=== PATIENT | female | born 1950 | race Caucasian/White ===

== ENCOUNTER → 2018-01-10 07:15 | Outpatient (CLI) | payer MEDICARE, SELFPAY ==
[2018-01-10 07:18] LABS: Microscopic, Urine URINE MICROSCOPIC (MICROSCOPIC)
[2018-01-10 07:36] LABS: Basophils % 0.6 % (0.1-2.0); Eosinophils # 0.1 K/mm3 (0.0-0.4); Hematocrit 31.6 % (37.0-47.0); Hemoglobin 10.9 g/dL (12.2-16.2); Lymphocytes % 40.8 K/mm3 (10-50); Mean Corpuscular HGB Conc 34.6 g/dL (31.8-35.4); Mean Corpuscular Hemoglobin 26.9 pg (27.0-31.2); Mean Corpuscular Volume 77.7 fl (81-99); Mean Platelet Volume 8.3 fl (7.4-10.4); Monocytes # 0.3 K/mm3 (0.1-1.0); Monocytes % 7.1 % (1.7-9.3); Neutrophils # 2.4 K/mm3 (1.8-7.8); Neutrophils % 49.5 % (37.0-80.0); Platelet Count 258 K/mm3 (142-424); Red Blood Count 4.07 M/mm3 (4.20-5.40); Red Cell Distribution Width 15.8 % (11.5-17.5); White Blood Count 4.8 K/mm3 (4.8-10.8)
[2018-01-10 07:52] LABS: Appearance,Urine CLEAR (Clear); Bilirubin,Urine Negative (Negative); Blood, Urine Negative (Negative); Color,Urine YELLOW (Yellow); Glucose,Urine (UA) Negative (Negative); Ketones,Urine Negative (Negative); Leukocyte Esterase,Urine TRACE (Negative); Nitrate,Urine Negative (Negative); PH,Urine 6.5 (5.0-8.5); Protein,Urine Negative (Negative); Specific Gravity, Urine <= 1.005 (1.005-1.030); Urobilinogen,Urine 0.2 EU/dl (0.2)
[2018-01-10 08:01] LABS: Creatinine,Urine Random 52 mg/dL (20-320)
[2018-01-10 08:26] LABS: Total Protein,Urine Random < 6.0 mg/dL (0.0-11.9)
[2018-01-10 09:02] LABS: Bacteria,Urine Trace /lpf
[2018-01-10 09:36] LABS: Albumin Level 3.7 gm/dL (3.4-5.0); Anion Gap 12.5 mEq/L (5-15); Blood Urea Nitrogen 15 mg/dL (7-18); Calcium 9.2 mg/dL (8.5-10.1); Carbon Dioxide 28 mmol/L (21.0-32.0); Chloride 106 mmol/L (98-107); Creatinine,Serum 1.01 mg/dL (0.55-1.02); Estimated Glomerular Filt Rate 54 ml/min (>60); GFR (African American) 66 ML/MIN (>60); Glucose 100 mg/dL (74-106); Phosphorous 4.4 mg/dL (2.4-4.9); Potassium 4.5 mmoL/L (3.5-5.1); Sodium 142 mmol/L (136-145)
[2018-01-11 18:33] LABS: Vitamin D 25 Hydroxy 29.3 ng/mL (30.0-100.0)
== END ==
PROVIDERS: Visit Provider Internal Medicine Nephrology
DX: N18.3 Chronic kidney disease, stage 3 (moderate) (principal)
CPT/HCPCS: 36415; 80069; 81001; 82570; 82652; 84155; 85025

== ENCOUNTER → 2018-01-16 15:19 | Outpatient (POV) | payer MEDICARE, SELFPAY | PROVIDERS: PCP Emergency Medicine; Visit Provider Internal Medicine Nephrology | DX: Z00.00 Encounter for general adult medical examination without abnormal findings (principal) ==

== ENCOUNTER → 2018-03-31 10:13 | Outpatient (CLI) | payer MEDICARE, OTHER, SELFPAY ==
[2018-03-31 10:56] LABS: Basophils % 0.4 % (0.1-2.0); Eosinophils # 0.1 K/mm3 (0.0-0.4); Eosinophils % 2.4 % (0.1-12.0); Hematocrit 35.6 % (37.0-47.0); Hemoglobin 11.6 g/dL (12.2-16.2); Lymphocytes # 1.7 K/mm3 (0.7-4.5); Lymphocytes % 30.4 K/mm3 (10-50); Mean Corpuscular HGB Conc 32.8 g/dL (31.8-35.4); Mean Corpuscular Hemoglobin 25.9 pg (27.0-31.2); Mean Corpuscular Volume 79.1 fl (81-99); Mean Platelet Volume 7.8 fl (7.4-10.4); Monocytes # 0.3 K/mm3 (0.1-1.0); Monocytes % 5.9 % (1.7-9.3); Neutrophils # 3.3 K/mm3 (1.8-7.8); Neutrophils % 60.9 % (37.0-80.0); Platelet Count 255 K/mm3 (142-424); Red Blood Count 4.49 M/mm3 (4.20-5.40); Red Cell Distribution Width 16.8 % (11.5-17.5); White Blood Count 5.5 K/mm3 (4.8-10.8)
[2018-03-31 12:06] LABS: Alanine Aminotransferase 23 U/L (12-78); Albumin Level 3.7 gm/dL (3.4-5.0); Albumin/Globulin Ratio 1.1 (1.1-1.8); Alkaline Phosphatase 90 U/L (46-116); Anion Gap 12.4 mEq/L (5-15); Aspartate Amino Transferase 14 U/L (15-37); Bilirubin,Total 0.3 mg/dL (0.2-1.0); Blood Urea Nitrogen 16 mg/dL (7-18); Calcium 9.3 mg/dL (8.5-10.1); Carbon Dioxide 29 mmol/L (21.0-32.0); Chloride 106 mmol/L (98-107); Chol/HDL Ratio 5.6 (1-3.5); Cholesterol 253 mg/dL (140-200); Estimated Glomerular Filt Rate 55 ml/min (>60); GFR (African American) 67 ML/MIN (>60); Globulin 3.3 gm/dl (1.3-3.2); Glucose 98 mg/dL (74-106); HDL Cholesterol 45 mg/dL (29-89); Potassium 4.4 mmoL/L (3.5-5.1); Sodium 143 mmol/L (136-145); T4 (Thyroxine) 7.2 ug/dl (4.7-13.3); Thyroid Stimulating Hormone 2.42 uIU/ml (0.358-3.740)
[2018-03-31 12:07] LABS: Triglycerides 427 mg/dL (30-200)
[2018-04-01 08:50] LABS: Vitamin B12 371 pg/mL (232-1245)
[2018-04-03 14:22] LABS: 1,25-Dihydroxy, Vitamin D-2 <10 pg/mL (.)
[2018-04-04 08:24] LABS: 1,25 Dihydroxy Vitamin D 31 pg/mL (.); 1,25-Dihydroxy, Vitamin D-3 31 pg/mL (.)
== END ==
PROVIDERS: Visit Provider Nurse Practitioner Family
DX: R53.83 Other fatigue (principal); J44.9 Chronic obstructive pulmonary disease, unspecified; F41.9 Anxiety disorder, unspecified; E78.5 Hyperlipidemia, unspecified
CPT/HCPCS: 36415; 80053; 80061; 82607; 82652; 84436; 84443; 85025

== ENCOUNTER → 2018-04-25 08:05 | Outpatient (CLI) | payer MEDICARE, OTHER, SELFPAY ==
[2018-04-25 10:49] LABS: Hemoglobin A1C 5.5 % (0.0-7.0)
== END ==
PROVIDERS: PCP Emergency Medicine; Visit Provider Nurse Practitioner Family
DX: E78.2 Mixed hyperlipidemia (principal); Z79.899 Other long term (current) drug therapy
CPT/HCPCS: 36415; 83036

== ENCOUNTER → 2018-10-14 11:11 | Outpatient (CLI) | payer MEDICARE, OTHER, SELFPAY ==
[2018-10-14 11:18] LABS: Microscopic, Urine URINE MICROSCOPIC (MICROSCOPIC)
[2018-10-14 12:01] LABS: Appearance,Urine CLEAR (Clear); Bilirubin,Urine Negative (Negative); Blood, Urine Negative (Negative); Color,Urine YELLOW (Yellow); Glucose,Urine (UA) Negative (Negative); Ketones,Urine Negative (Negative); Leukocyte Esterase,Urine Negative (Negative); Nitrate,Urine Negative (Negative); PH,Urine 5.5 (5.0-8.5); Protein,Urine Negative (Negative); Urobilinogen,Urine 0.2 EU/dl (0.2)
[2018-10-14 12:08] LABS: Bacteria,Urine Trace /lpf; Squamous Epithelial Cell,Urine Occasional #/hpf (0-5)
[2018-10-14 12:34] LABS: Basophils % 0.4 % (0.1-2.0); Eosinophils # 0.1 K/mm3 (0.0-0.4); Eosinophils % 1.7 % (0.1-12.0); Hematocrit 34.7 % (37.0-47.0); Hemoglobin 11.5 g/dL (12.2-16.2); Lymphocytes % 34.2 % (10-50); Mean Corpuscular HGB Conc 33.2 g/dL (31.8-35.4); Mean Corpuscular Hemoglobin 26.7 pg (27.0-31.2); Mean Corpuscular Volume 80.6 fl (81-99); Mean Platelet Volume 8.1 fl (7.4-10.4); Monocytes # 0.3 K/mm3 (0.1-1.0); Monocytes % 5.3 % (1.7-9.3); Neutrophils # 3.4 K/mm3 (1.8-7.8); Neutrophils % 58.5 % (37.0-80.0); Platelet Count 233 K/mm3 (142-424); Red Blood Count 4.31 M/mm3 (4.20-5.40); Red Cell Distribution Width 15.3 % (11.5-17.5); White Blood Count 5.9 K/mm3 (4.8-10.8)
[2018-10-14 12:43] LABS: Creatinine,Urine Random 22 mg/dL (20-320)
[2018-10-14 13:39] LABS: Albumin Level 3.5 gm/dL (3.4-5.0); Anion Gap 15.3 mEq/L (5-15); Blood Urea Nitrogen 22 mg/dL (7-18); Calcium 8.5 mg/dL (8.5-10.1); Carbon Dioxide 24 mmol/L (21.0-32.0); Chloride 105 mmol/L (98-107); Creatinine,Serum 0.95 mg/dL (0.55-1.02); Estimated Glomerular Filt Rate 58 ml/min (>60); GFR (African American) 71 ML/MIN (>60); Sodium 140 mmol/L (136-145)
[2018-10-14 13:45] LABS: Potassium 4.3 mmoL/L (3.5-5.1)
[2018-10-14 13:55] LABS: Glucose 102 mg/dL (74-106)
[2018-10-15 14:40] LABS: Parathyroid Hormone Intact 68 pg/mL (15-65); Vitamin D 25 Hydroxy 13.6 ng/mL (30.0-100.0)
[2018-10-22 15:07] LABS: Calcium, Ionized 5.1 mg/dL (4.5-5.6)
== END ==
PROVIDERS: Visit Provider Internal Medicine Nephrology
DX: N18.3 Chronic kidney disease, stage 3 (moderate) (principal)
CPT/HCPCS: 36415; 80069; 81001; 82330; 82570; 82652; 83970; 84155; 85025

== ENCOUNTER → 2018-10-16 15:15 | Outpatient (POV) | payer MEDICARE, OTHER, SELFPAY | PROVIDERS: Visit Provider Internal Medicine Nephrology | DX: Z00.00 Encounter for general adult medical examination without abnormal findings (principal) ==

== ENCOUNTER → 2018-11-26 19:17 | Outpatient (CLI) | payer MEDICARE, OTHER, SELFPAY ==
[2018-11-26 20:06] LABS: Erythrocyte Sedimentation Rate 14 mm/hr (0-30)
[2018-11-28 16:11] LABS: Albumin 3.5 g/dL (2.9-4.4); Alpha-1-Globulin 0.2 g/dL (0.0-0.4); Alpha-2-Globulin 0.8 g/dL (0.4-1.0); Gamma Globulin 1.1 g/dL (0.4-1.8); Protein, Total 6.7 g/dL (6.0-8.5)
== END ==
PROVIDERS: Visit Provider Emergency Medicine
DX: R20.0 Anesthesia of skin (principal)
CPT/HCPCS: 84155; 84165; 85651

== ENCOUNTER → 2018-12-19 15:49 | Outpatient (CLI) | payer MEDICARE, OTHER, SELFPAY ==
--- NOTE | 2018-12-19 15:53 | MM_ITS ---
MM Dig screening mamm BI w/CAD ORDERING PHYSICIAN : Alan Brand MD PATIENT AGE: 68 years GENDER: Female FCOMPARISON: Previous mammograms: Previous mammogram studies from November 2014, November 2013, October. INDICATION: Routine screening 65-year-old no hormones no new complaints. Family history sibling sister with breast cancer age 50 as well as aunt with breast cancer TECHNIQUE: Standard CC and MLO images were obtained. R2 CAD reviewed. . Additional right breast CC nipple profile view and right MLO view to include IMF FINDINGS: Areas of Moderate breast density scattered fibroglandular elements most evident towards superior breast bilaterally . mild stable asymmetry. RIGHT BREAST: There are some new calcifications in the right breast. These are by far most likely benign calcifications particularly in this age patient; but with noting positive family history suggest the patient return for magnification views to further evaluate area labeled A.. (Reasonable alternative would be 6 month follow-up for these most likely benign calcifications) Otherwise overall architecture appears stable to breast with no new suspicious nodule or mass densities. Areas of mild fibroglandular asymmetry again noted & unchanged LEFT BREAST: The asymmetric areas of density in the left breast are again noted and long-standing. The areas labeled X and Y today's cc view have been seen on studies dating back to 2010 with no significant, appreciable change. Similar stable appearance on MLO view as well. Prior 2017 ultrasound revealed no significant findings here on either. Most likely reflect asymmetric island of fibroglandular tissue. Follow-up left mammogram 1 year adequate IMPRESSION: Right breast. New most likely benign calcifications developing at central right breast. However magnification views may be of benefit to further characterize and could be cautious, particularly in view of positive family history.. Moderately dense breast with Stable minimal otherwise seen bilaterally nodularity . BI-RADS Category: 0 Need Additional Imaging Evaluation RECOMMENDED FOLLOW-UP: IMM - IMMEDIATE FOLLOW-UP RECOMMENDED (A letter has been sent to the patient regarding results of the study.)
== END ==
PROVIDERS: PCP Emergency Medicine; Visit Provider Emergency Medicine
DX: Z12.31 Encounter for screening mammogram for malignant neoplasm of breast (principal)
CPT/HCPCS: 77067

== ENCOUNTER → 2019-01-08 14:20 | Outpatient (CLI) | payer MEDICARE, OTHER, SELFPAY ==
--- NOTE | 2019-01-08 14:24 | MM_ITS ---
MM Dig mamm DX unilat RT CAD INDICATION: Follow-up abnormal screening study, microcalcifications ORDERING PHYSICIAN: Alan Brand MD PATIENT AGE: 68 years COMPARISON: 12/19/2018, 12/24/2016 TECHNIQUE: Mag views right breast FINDINGS: Average fibroglandular tissue. Calcifications noted in the lower outer aspect right breast middle one third are identified on the mag views and have a coarse appearance and are probably benign. Follow-up suggested due to their interval development. IMPRESSION: Probably benign calcifications lower outer right breast. Recommend 6 month follow-up with mag views BI-RADS Category: 3 Probably Benign Finding Short Term Follow-up RECOMMENDED FOLLOW-UP: 6M - 6 MONTH FOLLOW-UP (A letter has been sent to the patient regarding results of the study.)
== END ==
PROVIDERS: PCP Emergency Medicine; Visit Provider Emergency Medicine
DX: R92.8 Other abnormal and inconclusive findings on diagnostic imaging of breast (principal)
CPT/HCPCS: 77065

== ENCOUNTER → 2019-02-06 12:17 | Outpatient (POV) | payer MEDICARE, OTHER, SELFPAY | PROVIDERS: Visit Provider Specialist | DX: R20.0 Anesthesia of skin (principal) | CPT/HCPCS: 95886; 95909 ==

== ENCOUNTER → 2019-02-23 10:31 | Outpatient (CLI) | payer MEDICARE, OTHER, SELFPAY ==
--- NOTE | 2019-02-23 10:36 | XR_ITS ---
EXAM: XR cervical spine 4V HISTORY: ITS.REASON: Neck pain, numbness BUE ORDERING PHYSICIAN: RADHA Caballero PATIENT AGE: 68 years COMPARISON: None FINDINGS: There is degenerative disc disease at C5-C6. Anterior osteophytes are present at C3, C4, C5, and C6. C6-C7 is not well demonstrated but is faintly visualized on the swimmer's view showing mild degenerative disc disease. Facet arthritic changes are noted C3-C7. There is mild foraminal narrowing on the left C4-5 and C5-6 and on the right at C3-C4. Carotid artery calcifications are also noted. No fracture or dislocation. No lytic or blastic change. No cervical ribs. IMPRESSION: Cervical spondylosis with degenerative disc disease and facet arthritic change with foraminal narrowing as described above
--- NOTE | 2019-02-23 10:36 | XR_ITS ---
EXAM: XR lumbar spine min 4V HISTORY: ITS.REASON: Back pain, incontinence ORDERING PHYSICIAN: RADHA Caballero PATIENT AGE: 68 years COMPARISON: None FINDINGS: There are mild degenerative changes of the lumbar spine. Small osteophytes are present anteriorly. There is slight decrease in the disc space at L2-L3 L3-L4 and L5-S1. No fracture or dislocation. No lytic or blastic change. Generalized vascular calcification is present. IMPRESSION: Mild degenerative change, no acute finding
== END ==
PROVIDERS: PCP Emergency Medicine; Visit Provider Physician Assistant
DX: M54.2 Cervicalgia (principal); M54.9 Dorsalgia, unspecified; R42 Dizziness and giddiness; R29.6 Repeated falls; R20.0 Anesthesia of skin; R20.2 Paresthesia of skin
CPT/HCPCS: 72050; 72110

== ENCOUNTER → 2019-03-04 12:45 | Outpatient (CLI) | payer MEDICARE, OTHER, SELFPAY ==
--- NOTE | 2019-03-04 12:47 | MR_ITS ---
MR lumbar spine wo con HISTORY: ITS.REASON: Low back pain, incontinence ORDERING PHYSICIAN: RADHA Caballero PATIENT AGE: 68 years Comparison: 02/23/2019. TECHNIQUE: Standard multiplanar multiecho sequences are performed without contrast. 3-D MIP and myelographic images are also rendered and reviewed FINDINGS: There is borderline minimal anterior subluxation of L3 on L4 related to facet hypertrophy. Vertebral body heights are normal. Osseous marrow signal is normal with a benign cavernous hemangioma posteriorly at L1 level. There is generalized shortening of the pedicles indicating a component of mild to moderate congenital central canal stenosis. L1-2 level is otherwise unremarkable. L2-3 shows mild facet hypertrophy without mass effect. There is no bulge or herniation. L3-4 shows moderate generalized thecal sac attenuation from very mild disc bulge and mild ligamentum flavum and moderate facet hypertrophy. L4-5 shows moderate facet hypertrophy with moderate to severe = attenuation. L5-S1 shows severe facet hypertrophy and moderate generalized thecal sac attenuation. Because of facet hypertrophy there is mild foraminal encroachment bilaterally at L4-5. The remainder of the nerve roots in the foraminal areas are strand of by epidural fat. The conus and cauda equina structures are unremarkable except there is crowding of the nerve roots in the thecal sac especially at L3-4 and L4-5. IMPRESSION: Areas of central canal stenosis from congenital and acquired etiology as discussed above, mild to moderate at L2-3, moderate at L3-4 and moderate to severe at L4-5 primarily from facet arthrosis. L5-S1 facet arthrosis without significant mass effect. L4-5 mild bilateral foraminal stenosis.
--- NOTE | 2019-03-04 12:47 | MR_ITS ---
MR cervical spine wo con HISTORY: ITS.REASON: Neck pain, numbness BUE ORDERING PHYSICIAN: RADHA Caballero PATIENT AGE: 68 years Comparison: 03/04/2019. TECHNIQUE: Standard multiplanar multiecho sequences are performed without contrast. 3-D MIP and myelographic images are also rendered and reviewed FINDINGS: Vertebral body heights and signal from the osseous marrow elements are normal. There is moderate to severe loss of disc space height at C5-6 and mild loss of height at C6-7. There is several millimeter anterior subluxation of C3 on C4 and C4 on C5 related to hypertrophy. C1-2 and foramen magnum area are unremarkable. C2-3 shows mild bulge without mass effect. C3-4 shows diffuse bulge adjacent to the ventral cord and AP diameter of the central canal is 8.4 mm. C4-5 shows diffuse mild bulge and mild ventral cord deformity and the AP canal diameter is 7.7 mm. C5-6 shows diffuse bulge/posterior spur with mild ventral cord deformity and the AP canal diameter 6.3 mm. C6-7 shows diffuse bulge with mild ventral cord deformity and the AP canal diameter 7.4 mm. There are some areas of suspected osseous foraminal stenosis and this is probably mild on the right at C3-4 from facet hypertrophy, mild to moderate on the left at C3-4 from facet and uncovertebral joint hypertrophy, and bilaterally at C5-6 moderate on the right and mild on the left from uncovertebral joint hypertrophy. Spinal cord is of normal signal. Paraspinal areas are unremarkable. IMPRESSION: Very little change since prior study. There are multiple levels of disc bulges with mild acquired central canal stenosis at C3-C7 levels and this is somewhat greater although probably stable at C5-6. Areas of foraminal stenosis from facet arthrosis and spondylosis as discussed above probably stable and more moderate on the right at C5-6. C3 on C4 and C4 on C5 minimal anterolisthesis related to facet arthrosis.
== END ==
PROVIDERS: PCP Emergency Medicine; Visit Provider Physician Assistant
DX: R15.9 Full incontinence of feces; R32 Unspecified urinary incontinence; M54.2 Cervicalgia; R20.0 Anesthesia of skin; R20.2 Paresthesia of skin; M54.5 Low back pain
CPT/HCPCS: 72141; 72148; 76376

== ENCOUNTER → 2019-03-06 14:19 | Outpatient (CLI) | payer MEDICARE, OTHER, SELFPAY ==
--- NOTE | 2019-03-06 14:24 | CT_ITS ---
CT HEAD WITHOUT CONTRAST [Referring physician:RADHA Caballero History:ITS.REASON: Dizziness, falling, off balance Ordering physician:RADHA Caballero Patient age:68 years Comparison:06/06/2010. TECHNIQUE: Axial images obtained without contrast. Brain and bone windows reviewed. All CT scans at the facility use one or more dose reduction, viz: automated exposure control, ma/kV adjustment per patient size (including targeted exams where dose is matched to indication, i.e. head), or iterative reconstruction technique. There is no mass, acute hemorrhage or extra-axial fluid collection. Ventricles, sulci and cortical areas are normal. There are some stable bilateral periventricular frontal white matter hypodense areas. There is also a stable subcortical superior left frontal hypodense area. The visualized paranasal sinuses and mastoid air cells are clear. There is no acute osseous process. Impression:No change or acute process. White matter findings are stable suggesting chronic microvascular and age-related changes.
== END ==
PROVIDERS: PCP Emergency Medicine; Visit Provider Physician Assistant
DX: R29.6 Repeated falls (principal); R42 Dizziness and giddiness
CPT/HCPCS: 70450

== ENCOUNTER → 2019-03-24 09:49 | Outpatient (POV) | payer MEDICARE, OTHER, SELFPAY ==
[2019-03-24 09:58] VITALS: BP 167/90; PULSE 81; RESP 18; O2SAT 98; BMI 33.6
--- NOTE | 2019-03-24 10:43 | HMH.PMCON ---
Assessment and Plan (1) Radiculopathy Current visit: Yes Status: Chronic Qualifiers: Spinal region: cervical Qualified Code(s): M54.12 - Radiculopathy, cervical region Category: Medical Code(s): M54.10 - Radiculopathy, site unspecified (2) Degenerative disc disease, lumbar Current visit: No Status: Chronic Category: Medical Code(s): M51.36 - Other intervertebral disc degeneration, lumbar region (3) Degenerative disc disease, cervical Current visit: No Status: Chronic Category: Medical Code(s): M50.30 - Other cervical disc degeneration, unspecified cervical region - Assessment and plan all Dx Assessment and Plan for all problems:: We will schedule C5-C6 cervical epidural steroid injection for the patient to see if it is beneficial. I also gave the patient some information in regards to spinal stenosis in the mild procedure given some of her low back symptoms this may be something we can address at a later time. Patient's main concern today is her neck pain in her bilateral arm radiculopathy. I will follow-up with the patient after her injection reassess her symptoms at that time she is not on any anticoagulation therapy. Dr. Ruiz has reviewed this note and agrees with this plan of care. This note was dictated using voice recognition software and may contain errors or omissions HPI - Data of Consult Consult date: 03/24/19 Requesting Physician: Katelynn Tadeo APRN Primary Care Provider: Alan Brand MD - Consult Narrative Reason for consult: Neck pain and back pain History of present illness: Ms. Kwan is a 68 year old female who presents today for consultation in regards to her neck pain and back pain. Patient had a fall back in July since then she has had pain in her neck and her lower back. However what is worsening now is the numbness and tingling in her bilateral hands. Patient and I discussed which pain was worse at this time and she stated it was the neck pain she would like to work on this to see if she can get some improvement. She rates her pain today a 7 out of 10. Patient has been on some gabapentin however it is been ineffective for the last several months. Patient is interested in injective therapy she is continuing a home stretching program. She is not on any anticoagulation therapy. CC: Katelynn Tadeo APRN [facility] History I have reviewed the patient's past medical history: Yes Medical History: Reports:: Asthma, Chronic Obstructive Pulmonary Disease (COPD), Coronary Artery Disease, Hyperlipidemia, Hypertension *Have you ever received a pneumonia vaccine?: Yes *Have you received a flu vaccine this season?: Yes Laterality Cases: Bilateral: Carpal Tunnel Release Other Surgeries: Yes: Tubal Ligation, Other Amputation: No Fractures: No - *Social History Smoking Status: Never smoker Alcohol Intake: never Alcohol Intake Frequency:: other Substance Use Type: denies use *Occupational Status:: other Housing: house Household Members: other *Travel in the last 8 weeks: None Family Hx:: Non-contributory Review of Systems - Review of Systems ROS General: no recent weight change, no fever, no sleep disturbances Respiratory: no cough, no shortness of air, no recurring pulmonary infections Cardiovascular/Peripheral Vascular: No chest pain, No palpitations, no edema, no shortness of breath. Gastrointestinal: no incontinence, normal bowel movements reported Genitourinary: no incontinence Musculoskeletal: Back pain, neck pain, arm pain Psychiatric: normal mood/ affect Neurological: [denies weakness in extremities], [denies balance issues] Meds Home Medications Medication Instructions Recorded Confirmed Type albuterol sulfate 2.5 mg/3 mL 2.5 mg INHALATION QDAY ml 08/29/17 03/12/19 History (0.083 %) solution for nebulization aspirin 81 mg tablet,delayed 81 mg PO QDAY #90 tab 02/27/18 03/12/19 Rx release cholecalciferol (vitamin D3)
--- NOTE | 2019-03-24 10:46 | P.CONS_ITS ---
Assessment and Plan (1) Radiculopathy Current visit: Yes Status: Chronic Qualifiers: Spinal region: cervical Qualified Code(s): M54.12 - Radiculopathy, cervical region Category: Medical Code(s): M54.10 - Radiculopathy, site unspecified (2) Degenerative disc disease, lumbar Current visit: No Status: Chronic Category: Medical Code(s): M51.36 - Other intervertebral disc degeneration, lumbar region (3) Degenerative disc disease, cervical Current visit: No Status: Chronic Category: Medical Code(s): M50.30 - Other cervical disc degeneration, unspecified cervical region - Assessment and plan all Dx Assessment and Plan for all problems:: We will schedule C5-C6 cervical epidural steroid injection for the patient to see if it is beneficial. I also gave the patient some information in regards to spinal stenosis in the mild procedure given some of her low back symptoms this may be something we can address at a later time. Patient's main concern today is her neck pain in her bilateral arm radiculopathy. I will follow-up with the patient after her injection reassess her symptoms at that time she is not on any anticoagulation therapy. Dr. Ruiz has reviewed this note and agrees with this plan of care. This note was dictated using voice recognition software and may contain errors or omissions HPI - Data of Consult Consult date: 03/24/19 Requesting Physician: Katelynn Tadeo APRN Primary Care Provider: Alan Brand MD - Consult Narrative Reason for consult: Neck pain and back pain History of present illness: Ms. Kwan is a 68 year old female who presents today for consultation in regards to her neck pain and back pain. Patient had a fall back in July since then she has had pain in her neck and her lower back. However what is worsening now is the numbness and tingling in her bilateral hands. Patient and I discussed which pain was worse at this time and she stated it was the neck pain she would like to work on this to see if she can get some improvement. She rates her pain today a 7 out of 10. Patient has been on some gabapentin however it is been ineffective for the last several months. Patient is interested in injective therapy she is continuing a home stretching program. She is not on any anticoagulation therapy. CC: Katelynn Tadeo APRN [facility] History I have reviewed the patient's past medical history: Yes Medical History: Reports:: Asthma, Chronic Obstructive Pulmonary Disease (COPD), Coronary Artery Disease, Hyperlipidemia, Hypertension *Have you ever received a pneumonia vaccine?: Yes *Have you received a flu vaccine this season?: Yes Laterality Cases: Bilateral: Carpal Tunnel Release Other Surgeries: Yes: Tubal Ligation, Other Amputation: No Fractures: No - *Social History Smoking Status: Never smoker Alcohol Intake: never Alcohol Intake Frequency:: other Substance Use Type: denies use *Occupational Status:: other Housing: house Household Members: other *Travel in the last 8 weeks: None Family Hx:: Non-contributory Review of Systems - Review of Systems ROS General: no recent weight change, no fever, no sleep disturbances Respiratory: no cough, no shortness of air, no recurring pulmonary infections Cardiovascular/Peripheral Vascular: No chest pain, No palpitations, no edema, no shortness of breath. Gastrointestinal: no incontinence, normal bowel movements reported Genitourinary: no incontinence Musculoskeletal: Back pain, neck pain, arm pain Psychiatric: normal mood/ affect Neurolo
== END ==
PROVIDERS: PCP Emergency Medicine; Visit Provider Clinical Nurse Specialist Family Health
DX: M51.16 Intervertebral disc disorders with radiculopathy, lumbar region (principal); M50.30 Other cervical disc degeneration, unspecified cervical region
CPT/HCPCS: 99202

== ENCOUNTER → 2019-04-14 10:17 | Outpatient (CLI) | payer MEDICARE, OTHER, SELFPAY ==
--- NOTE | 2019-04-14 10:30 | XR_ITS ---
PROCEDURE: XR KNEE RT 3V CLINICAL INDICATION: Right knee pain s/p fall Medial right knee pain following injury COMPARISON: No exams were available for comparison FINDINGS: No fracture or dislocation. No lytic or blastic change. There is normal mineralization. The joint spaces are well-preserved. No significant degenerative/arthritic changes. No erosive changes evident. Other findings:None. IMPRESSION: No acute findings. Dictated by: Sukhdev Fair MD 04/14/2019 11:01 Signed by: <Electronically signed by Sukhdev Fair MD in [place]> 04/14/2019 11:01
== END ==
PROVIDERS: PCP Emergency Medicine; Visit Provider Physician Assistant
DX: M25.561 Pain in right knee (principal)
CPT/HCPCS: 73562

== ENCOUNTER → 2019-04-27 14:18 | Outpatient (POV) | payer MEDICARE, OTHER, SELFPAY ==
[2019-04-27 14:31] VITALS: BP 150/62; PULSE 93; RESP 18; O2SAT 98; BMI 33.6
--- NOTE | 2019-04-28 08:39 | HMH.PAINSOAP ---
[facility] Pain Management SOAP Note Subjective:: Patient is a pleasant 68-year-old white female who presents today for follow-up after cervical epidural steroid injection. Patient states she is better she got 80% relief following the injection however her pain is beginning to return. She does believe it would be beneficial to finish the epidural series. She rates her pain a 7 out of 10 today. Mostly in her neck radiating down her arms. ROS General: no recent weight change, no fever, no sleep disturbances Respiratory: no cough, no shortness of air, no recurring pulmonary infections Cardiovascular/Peripheral Vascular: No chest pain, No palpitations, no edema, no shortness of breath. Gastrointestinal: no incontinence, normal bowel movements reported Genitourinary: no incontinence Musculoskeletal: Neck pain, arm pain Psychiatric: normal mood/ affect, Neurological: [denies balance issues] Objective:: Physical Exam General: Alert and oriented x3, no acute distress, pleasant and cooperative, [on room air] Lungs: Resps E/U, Symmetrical chest expansion, Eyes: PERRL Musculoskeletal: Flexion and extension of cervical spine somewhat guarded secondary to pain, deep tendon reflexes normal, strength in upper and lower extremities [5/5], antalgic gait noted Neurological: speech clear, drop hammer mechanic equal, no gross sensory deficits Assessment:: 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 Patient is not on any anticoagulation therapy and is continuing home stretching program. Patient is currently on anti-inflammatories. We will follow-up with the patient after injection reassess her symptoms at that time she is been instructed to call the office if she has any issues prior to her next appointment. Dr. Ruiz has reviewed this note and agrees with this plan of care. This note was dictated using voice recognition software and may contain errors or omissions [facility] History I have reviewed the patient's past medical history: Yes Medical History: Reports:: Asthma, Cancer (eyes), Chronic Obstructive Pulmonary Disease (COPD), Coronary Artery Disease, Hyperlipidemia, Hypertension Denies:: Diabetes Mellitus Type 1, Diabetes Mellitus Type 2, Seizures *Have you ever received a pneumonia vaccine?: Yes *Have you received a flu vaccine this season?: Yes Other Medical History: Denies: Blood Transfusion Reaction Laterality Cases: Bilateral: Carpal Tunnel Release Other Surgeries: Yes: Tubal Ligation, Other Amputation: No Fractures: No - *Social History Smoking Status: Never smoker Alcohol Intake: never Alcohol Intake Frequency:: other Substance Use Type: denies use *Occupational Status:: other Housing: house Household Members: other *Travel in the last 8 weeks: None Family Hx:: Non-contributory
--- NOTE | 2019-04-28 08:42 | P.CONS_ITS ---
[facility] Pain Management SOAP Note Subjective:: Patient is a pleasant 68-year-old white female who presents today for follow-up after cervical epidural steroid injection. Patient states she is better she got 80% relief following the injection however her pain is beginning to return. She does believe it would be beneficial to finish the epidural series. She rates her pain a 7 out of 10 today. Mostly in her neck radiating down her arms. ROS General: no recent weight change, no fever, no sleep disturbances Respiratory: no cough, no shortness of air, no recurring pulmonary infections Cardiovascular/Peripheral Vascular: No chest pain, No palpitations, no edema, no shortness of breath. Gastrointestinal: no incontinence, normal bowel movements reported Genitourinary: no incontinence Musculoskeletal: Neck pain, arm pain Psychiatric: normal mood/ affect, Neurological: [denies balance issues] Objective:: Physical Exam General: Alert and oriented x3, no acute distress, pleasant and cooperative, [on room air] Lungs: Resps E/U, Symmetrical chest expansion, Eyes: PERRL Musculoskeletal: Flexion and extension of cervical spine somewhat guarded secondary to pain, deep tendon reflexes normal, strength in upper and lower extremities [5/5], antalgic gait noted Neurological: speech clear, heel cutter equal, no gross sensory deficits Assessment:: 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 Patient is not on any anticoagulation therapy and is continuing home s tretching program. Patient is currently on anti-inflammatories. We will follow-up with the patient after injection reassess her symptoms at that time she is been instructed to call the office if she has any issues prior to her next appointment. Dr. Ruiz has reviewed this note and agrees with this plan of care. This note was dictated using voice recognition software and may contain errors or omissions [facility] History I have reviewed the patient's past medical history: Yes Medical History: Reports:: Asthma, Cancer (eyes), Chronic Obstructive Pulmonary Disease (COPD), Coronary Artery Disease, Hyperlipidemia, Hypertension Denies:: Diabetes Mellitus Type 1, Diabetes Mellitus Type 2, Seizures *Have you ever received a pneumonia vaccine?: Yes *Have you received a flu vaccine this season?: Yes Other Medical History: Denies: Blood Transfusion Reaction Laterality Cases: Bilateral: Carpal Tunnel Release Other Surgeries: Yes: Tubal Ligation, Other Amputation: No Fractures: No - *Social History Smoking Status: Never smoker Alcohol Intake: never Alcohol Intake Frequency:: other Substance Use Type: denies use *Occupational Status:: other Housing: house Household Members: other *Travel in the last 8 weeks: None Family Hx:: Non-contributory
== END ==
PROVIDERS: PCP Physician Assistant; Visit Provider Clinical Nurse Specialist Family Health
DX: M50.10 Cervical disc disorder with radiculopathy, unspecified cervical region (principal)
CPT/HCPCS: 99212

== ENCOUNTER → 2019-09-10 08:19 | Outpatient (CLI) | payer MEDICARE, OTHER, SELFPAY ==
--- NOTE | 2019-09-10 08:59 | MR_ITS ---
PROCEDURE: MR HEAD/BRAIN WO/W CON CLINICAL INDICATION: Brain Mass Lung cancer, evaluate for metastatic disease COMPARISON: HEADWO CT head/brain wo con from 03/06/2019 TECHNIQUE: Routine multiplanar multi echo sequences are performed without and with gadolinium enhancement. FINDINGS: No midline shift, mass effect, intracranial hemorrhage, or hydrocephalus is evident. Scattered periventricular and subcortical T2 white matter hyperintensities are present consistent with ischemic gliotic change from microvascular disease. These areas do not demonstrate contrast enhancement or restricted diffusion. No evidence of intracranial enhancing lesions. No evidence of acute infarction. On the coronal images there is a small area of increased cortical FLAIR signal in the left parasagittal region of the parietal lobe image 15 series 8. This is not demonstrated on any of the other sequences and may be artifactual in nature. The cerebellopontine angles, cerebellum, and brainstem have an unremarkable appearance. The pituitary, optic chiasm, corpus callosum, and craniocervical junction have an unremarkable appearance. There is bulging disc at C3-C4 and C4-C5 with suspected canal stenosis. This may be better evaluated with cervical spine MRI if clinically warranted no mastoid effusion or sinus air-fluid level. There is some mild mucosal thickening of the left maxillary sinus inferiorly IMPRESSION: 1. No convincing evidence of intracranial metastasis. 2. No acute intracranial findings. Please see above for detail. 3. Possible spinal stenosis in the cervical spine at C2-C3 and C3-C4 Dictated by: Sukhdev Fair MD 09/11/2019 09:40 Electronically signed by Sukhdev Fair MD in [place] 09/11/2019 09:40
[2019-09-10 09:10] LABS: Anion Gap 14.3 mEq/L (5-15); Blood Urea Nitrogen 25 mg/dL (7-18); Calcium 8.6 mg/dL (8.5-10.1); Carbon Dioxide 25 mmol/L (21.0-32.0); Chloride 109 mmol/L (98-107); Creatinine,Serum 1.05 mg/dL (0.55-1.02); Estimated Glomerular Filt Rate 52 ml/min (>60); GFR (African American) 63 ML/MIN (>60); Glucose 114 mg/dL (74-106); Potassium 4.3 mmoL/L (3.5-5.1); Sodium 144 mmol/L (136-145)
== END ==
PROVIDERS: PCP Physician Assistant; Visit Provider Physician Assistant
DX: Z01.818 Encounter for other preprocedural examination (principal); G93.89 Other specified disorders of brain
CPT/HCPCS: 36415; 70553; 80048; A9576

== ENCOUNTER → 2019-09-24 12:45 | Outpatient (CLI) | payer MEDICARE, OTHER, SELFPAY ==
--- NOTE | 2019-09-24 12:49 | MM_ITS ---
PROCEDURE: MM DIG MAMM DX UNILAT RT CAD CLINICAL INDICATION: Abnormal mamm Six-month follow-up right breast COMPARISON: [facility] DIG MAMM-DX UNI A/VWS-LT W/CAD from 12/24/2016 DIG MAMM-SCREEN DUSTIN from 12/19/2018 DIG MAMM-DX UNI-RT from 01/08/2019 TECHNIQUE: Mag views performed and right mL view as well as 3D tomography of the right breast. FINDINGS: The cluster of coarse calcifications in the inferior aspect of the right breast are not significantly changed and appear benign. No new abnormalities are evident. There is average fibroglandular tissue. Recommend resume screening exam December 2019 IMPRESSION: BI-RAD Category: 2 Benign Finding(s) FOLLOW-UP: 6M 6Month Follow-up (A letter has been sent to the patient regarding results of the study.) Dictated by: Sukhdev Fair MD 09/26/2019 11:21 Electronically signed by Sukhdev Fair MD in [place] 09/26/2019 11:21
== END ==
PROVIDERS: PCP Physician Assistant; Visit Provider Physician Assistant
DX: R92.8 Other abnormal and inconclusive findings on diagnostic imaging of breast (principal)
CPT/HCPCS: 77061; 77065; G0279

== ENCOUNTER 2019-12-17 11:51 | Emergency (ER) | payer MEDICARE, OTHER, SELFPAY ==
[2019-12-17 12:03] VITALS: BP 129/81; PULSE 89; RESP 22; TEMP 36.6; O2SAT 95; BMI 34.5
--- NOTE | 2019-12-17 12:13 | XR_ITS ---
PROCEDURE: XR CHEST 2V CLINICAL HISTORY: LUNG CA, SOA, COUGH, LUNG PAIN Cough and shortness of air COMPARISON: CXR CHEST(2 VIEWS-NOT PORTABLE) from 02/08/2017 CXR CHEST(2 VIEWS-NOT PORTABLE) from 04/25/2017 CXR CHEST(2 VIEWS-NOT PORTABLE) from 05/06/2017 [facility] CTA-CHEST from 06/04/2017 FINDINGS: The cardiomediastinal silhouette and pulmonary vascularity are within normal limits. Irregular increased density is present in the left upper lobe in this patient with history lung cancer. This could represent pneumonia, pulmonary fibrotic change, or neoplasm. Patchy density is also present in the lingula. There is prominence of the hilum noted on both sides. Degenerative change thoracic spine. IMPRESSION: Parenchymal opacity in the left upper lobe which has developed since 05/06/2017 and may be due to pneumonia, fibrosis, or neoplasm. Infiltrate present within the lingula. Dictated by: Sukhdev Fair MD 12/17/2019 13:11 Electronically signed by Sukhdev Fair MD in [place] 12/17/2019 13:11
--- NOTE | 2019-12-17 12:18 | HMH.EDGENADL ---
ED Disposition Clinical Impression: COPD exacerbation, Pulmonary infiltrate Disposition: Home, Self-Care Condition on Discharge: Good Instructions: DI for Chronic Obstructive Pulmonary Disease, DI for Shortness of Breath, DI for Pneumonia -- Adult Additional Instructions: Zithromax as prescribed. Prednisone as prescribed. Continue nebulizer treatments. Obtain Brio inhaler from your pharmacy. Follow-up with your primary care provider within 1 week, return to the emergency room if increasing shortness of breath. Prescriptions: predniSONE [Prednisone 20mg Tab] 20 mg PO BID #10 tab Transmission Status: Pending to [facility] Azithromycin [Zithromax 250mg tab] 250 mg PO DIRECTED #6 tab Transmission Status: Pending to [facility] Referrals: Alan Brand MD [Primary Care Provider] - - Critical Care Critical Care Time: No Attestation: On 12/17/19, the high probability of a clinically significant, sudden or life threatening deterioration of the following system(s) required my full and direct attention, intervention and personal management. The time I documented below is in addition to time spent performing reported procedures but includes the following listed in this critical care notation. Medical Decision Making - Luan Inquiry Pt receiving controlled substance: No Vital Signs: 12/17/19 12:03 12/17/19 14:16 Temperature 97.8 F Temperature Source Oral Pulse Rate 88 Pulse Rate [Left Radial] 89 Respiratory Rate 22 Blood Pressure [Left Arm] 129/81 Blood Pressure Mean [Left Arm] 97 Blood Pressure Source [Left Arm] Automatic Cuff Blood Pressure Position [Left Arm] Sitting 02 Sat by Pulse Oximetry 95 94 L Oxygen Delivery Method Room Air Room Air - Lab Data Lab Results 12/17/19 12:25: WBC 6.3, RBC 4.17 L, Hgb 12.1 L, Hct 37.0, MCV 88.6, MCH 29.1, MCHC 32.8, RDW 15.6, Plt Count 301, MPV 8.9, Neut % (Auto) 70.0, Lymph % (Auto) 22.4, [place] % (Auto) 5.4, Eos % (Auto) 1.5, Baso % (Auto) 0.7, Neut # (Auto) 4.4, Lymph # (Auto) 1.4, [place] # (Auto) 0.3, Eos # (Auto) 0.1, Baso # (Auto) 0.0 12/17/19 12:25: Sodium 139, Potassium 3.9, Chloride 105, Carbon Dioxide 29, Anion Gap 8.9, BUN 18 H, Creatinine 0.80, Estimated Creat Clear 72, Estimated GFR 71, Est GFR ( Amer) 86, Glucose 107 H, Calcium 9.4, Total Bilirubin 0.4, AST 31, ALT 31, Alkaline Phosphatase 77, Total Protein 7.7, Albumin 4.5, Globulin 3.2, Albumin/Globulin Ratio 1.4 12/17/19 12:25: Troponin I < 0.01, NT-Pro-B Natriuret Pep 174 H Result diagrams: 12/17/19 12:25 12/17/19 12:25 Orders (Tests/Meds): ED MEDICATIONS Discontinued Medications Generic Name Dose Route Start Last Admin Trade Name Freq PRN Reason Stop Dose Admin Albuterol/Ipratropium 3 ml 12/17/19 13:43 Duoneb 3ml Neb 12/17/19 13:44 ONCE ONE Albuterol/Ipratropium 3 ml 12/17/19 13:47 12/17/19 14:16 Duoneb 3ml Neb 12/17/19 13:48 3 ml ONCE ONE Administration Ioversol 70 ml 12/17/19 13:14 12/17/19 13:16 Rad-Optiray 350 100ml Vial IV 12/17/19 13:15 70 ml ONCE ONE Administration Protocol Methylprednisolone Sodium Succinate 125 mg 12/17/19 13:47 12/17/19 14:03 Solu-Medrol 125mg/2ml Vial IV 12/17/19 13:48 125 mg ONCE ONE Administration Sodium Chloride 10 ml 12/17/19 13:14 12/17/19 13:16 Rad-Saline Flush 10ml Syringe IV 12/17/19 13:15 10 ml ONCE ONE Administration Sodium Chloride 50 ml 12/17/19 13:14 12/17/19 13:16 Rad-Ns 50ml Vial IV 12/17/19 13:15 50 ml ONCE ONE Administration ORDERS Category Date Time Status Troponin I Q3H Lab 12/17/19 15:45 Ordered Troponin I Q3H Lab 12/17/19 18:45 Ordered - Radiology Data #1 Image(s): Chest Image Reviewed: Yes I reviewed the patient's radiology image, Yes I have reviewed radiologist's interpretation PROCEDURE: XR CHEST 2V CLINICAL HISTORY: LUNG CA, SOA, COUGH, LUNG PAIN Cough and shortness of air COMP
--- NOTE | 2019-12-17 12:32 | CT_ITS ---
PROCEDURE: CT ANGIO CHEST CLINCIAL INDICATION: soa, has lung cancer, r/o PE Shortness of air with chest pain COMPARISON: [facility] CT CHEST W/ CONTRAST from 12/17/2016 [facility] CTA-CHEST from 06/04/2017 TECHNIQUE: IV Contrast: 70ML OPTIRAY 350 Axial images obtained with sagittal and coronal reformats. All CT scans at the facility use one or more dose reduction, viz: automated exposure control, ma/kV adjustment per patient size (including targeted exams where dose is matched to indication, i.e. head), or iterative reconstruction technique. FINDINGS: No evidence of aortic aneurysm or dissection. No evidence of pulmonary embolus. No mediastinal or hilar mass or adenopathy. There are coronary artery calcifications. There is mild pericardial thickening and there is a small hiatal hernia. There is right middle lobe collapse. There is irregular parenchymal opacity in the left upper lobe centrally measuring 2.3 by 2.7 by 2.2 cm. This could represent neoplasm or fibrosis or a combination there of. There is some peripheral parenchymal opacity in the right upper lobe extending from the central area of increased density which could also represent fibrosis/post inflammatory change or neoplasm. There is some consolidation in the left upper lobe posteriorly and in the superior segment of the left lower lobe suggesting infiltrate. There is volume loss in the lingula. There is a noncalcified 8 mm nodule the left lower lobe laterally and anteriorly. 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 There are degenerative changes in the thoracic spine IMPRESSION: 1. No evidence of pulmonary embolus. 2. Irregular parenchymal opacity in the left upper lobe. This may represent residual or recurrence neoplasm or pulmonary fibrotic change versus pneumonia. This has increased when compared to an older exam of 12/17/2016. Please correlate with more recent exams if available. There are no other recent exams available at this institution. 3. There is some patchy infiltrate in the left upper lobe posteriorly and in the superior segment of the left lower lobe 4. Noncalcified 8 mm nodule left lower lobe not significantly changed Dictated by: Sukhdev Fair MD 12/17/2019 14:07 Electronically signed by Sukhdev Fair MD in [place] 12/17/2019 14:07
[2019-12-17 12:33] LABS: Basophils % 0.7 % (0.1-2.0); Eosinophils # 0.1 K/mm3 (0.0-0.4); Eosinophils % 1.5 % (0.1-12.0); Hemoglobin 12.1 g/dL (12.2-16.2); Lymphocytes # 1.4 K/mm3 (0.7-4.5); Lymphocytes % 22.4 % (10-50); Mean Corpuscular HGB Conc 32.8 g/dL (31.8-35.4); Mean Corpuscular Hemoglobin 29.1 pg (27.0-31.2); Mean Corpuscular Volume 88.6 fl (81-99); Mean Platelet Volume 8.9 fl (7.4-10.4); Monocytes # 0.3 K/mm3 (0.1-1.0); Monocytes % 5.4 % (1.7-9.3); Neutrophils # 4.4 K/mm3 (1.8-7.8); Platelet Count 301 K/mm3 (142-424); Red Blood Count 4.17 M/mm3 (4.20-5.40); Red Cell Distribution Width 15.6 % (11.5-17.5); White Blood Count 6.3 K/mm3 (4.8-10.8)
[2019-12-17 12:44] LABS: Alanine Aminotransferase 31 U/L (12-78); Albumin Level 4.5 g/dl (3.5-5.0); Albumin/Globulin Ratio 1.4 (1.1-1.8); Alkaline Phosphatase 77 U/L (38-126); Anion Gap 8.9 mEq/L (5-15); Aspartate Amino Transferase 31 U/L (14-36); Bilirubin,Total 0.4 mg/dl (0.2-1.3); Blood Urea Nitrogen 18 mg/dl (7-17); Calcium 9.4 mg/dl (8.4-10.2); Carbon Dioxide 29 mmol/L (22.0-30.0); Chloride 105 mmol/L (98-107); Creatinine Clearance Estimated 72 mL/min (50-200); Estimated Glomerular Filt Rate 71 ml/min (>60); GFR (African American) 86 ML/MIN (>60); Globulin 3.2 g/dL (1.3-3.2); Glucose 107 mg/dl (74-100); Potassium 3.9 mmoL/L (3.5-5.1); Sodium 139 mmol/L (136-145); Total Protein,Serum 7.7 g/dl (6.3-8.2)
[2019-12-17 12:57] LABS: NT Pro Brain Natriuretic Pep. 174 pg/mL (0-125)
[2019-12-17 13:05] LABS: Troponin I < 0.01 ng/ml (0.00-0.034)
--- NOTE | 2019-12-17 13:45 | ECG_ITS ---
APPROVED REPORT Exam: Resting ECG HR:78 bpm ECG Measurements Heart Rate 78 AXES WV 134 P 77 QRSd 76 QRS 81 QT 394 T 79 QTc 449 <Conclusion> Normal sinus rhythm Normal ECG Electronically signed by : Papa Florez, 12/17/2019 21:53:27
[2019-12-17 14:16] VITALS: PULSE 88; O2SAT 94
[2019-12-17 15:03] VITALS: BP 122/87; PULSE 85; RESP 20; TEMP 36.8; O2SAT 98
== END 2019-12-17 15:04 | disposition home or self-care (01) ==
PROVIDERS: Emergency Provider Emergency Medicine; PCP Emergency Medicine
DX: J44.1 Chronic obstructive pulmonary disease with (acute) exacerbation (principal); R91.1 Solitary pulmonary nodule; C34.92 Malignant neoplasm of unspecified part of left bronchus or lung; Z87.891 Personal history of nicotine dependence; E78.5 Hyperlipidemia, unspecified; I10 Essential (primary) hypertension; Z79.899 Other long term (current) drug therapy; M51.36 Other intervertebral disc degeneration, lumbar region; M50.30 Other cervical disc degeneration, unspecified cervical region
CPT/HCPCS: 71046; 71275; 80053; 83880; 84484; 85025; 93005; 96374; 99283; Q9967

== ENCOUNTER → 2019-12-31 14:49 | Outpatient (CLI) | payer MEDICARE, OTHER, SELFPAY ==
--- NOTE | 2019-12-31 14:51 | CA_ITS ---
APPROVED REPORT EXAM: Comprehensive 2D, Doppler, and color-flow Echocardiogram Window Decorator: Kirstie Wong CRT Ht: 5 ft 3 in Wt: 200lbs BSA: 1.93 BP: 128/80 mmHg Indications: cp, sob, lung ca, radiation 2D Dimensions LVOT 1.76 cm (M/F) 1.5-2.5 M-Mode Dimensions RVDd 2.58 cm (0.9-2.6) LVDd 4.74 cm (3.5-5.7) LVDs 3.80 cm (3.5-5.7) IVSd 1.78 cm (0.6-1.1) PWd 0.80 cm (0.6-1.1) EF (Teich) 40.60% FS 19.80% EDV (Teich) 104.40 mL ESV (Teich) 62.00 mL LV Diastology E/A Ratio 0.60 Mitral Valve MV A Velocity 108.00 (40-130 cm/s) Left Ventricle Left atrium is mildly enlarged, left ventricle is normal size, mild concentric left ventricular hypertrophy, hyperdynamic left ventricular systolic function, visually estimated ejection fraction over 65% with no regional wall motion abnormality. Grade 1 diastolic dysfunction seen without tissue Doppler evidence of raise left atrial pressure. Right Ventricle Right atrium and right ventricular normal size and contractility. Aortic Valve Aortic valve is minimally thickened and fibrosed, there is no aortic stenosis or aortic insufficiency. Mitral Valve Mitral valve leaflets are minimally thickened, there is no mitral stenosis, there is mild mitral regurgitation. Tricuspid Valve Tricuspid valve is grossly normal, there is mild tricuspid regurgitation, tricuspid regurgitation jet velocity is inadequate for calculation of the right ventricular systolic pressure. Pulmonic Valve Pulmonic valve is poorly visualized. Great Vessels Aortic root is normal size. Pericardium No significant pericardial effusion noted. Conclusion 1. Technically difficult study because of the patient fact in poor acoustic windows 2. Mildly enlarged left atrium, normal left ventricular size, mild concentric left ventricular hypertrophy, hyperdynamic left ventricular systolic function, visually estimated ejection fraction is over 65% with no regional wall motion abnormality, grade 1 diastolic dysfunction seen without tissue Doppler evidence of raise left atrial pressure. 3. Mild mitral and tricuspid regurgitation. 4. No significant pericardial effusion noted. Electronically signed by : Yousuf Conley, 12/31/2019 16:10:35
== END ==
PROVIDERS: PCP Emergency Medicine; Visit Provider Physician Assistant
DX: R06.00 Dyspnea, unspecified (principal)
CPT/HCPCS: 93306

== ENCOUNTER → 2020-03-09 09:55 | Outpatient (CLI) | payer MEDICARE, OTHER, SELFPAY ==
--- NOTE | 2020-03-09 09:56 | MM_ITS ---
PROCEDURE: MM DIG SCREENING MAMM BI W/CAD DIGITAL BREAST TOMOSYNTHESIS INCLUDED Patient Age:69Y CLINICAL INDICATION: Routine screening digital mammogram. Family history sister and aunt with breast cancer No hormones. No new complaints. COMPARISON: [facility] DIG MAMM-SCREEN DUSTIN from 11/16/2014 [facility] DIG MAMM-SCREEN DUSTIN from 11/25/2015 [facility] DIG MAMM-SCREEN DUSTIN W/CAD from 12/04/2016 [facility] DIG MAMM-DX UNI A/VWS-LT W/CAD from 12/24/2016 DIG MAMM-SCREEN DUSTIN from 12/19/2018 DIG MAMM-DX UNI-RT from 01/08/2019 MM DIG MAMM DX UNILAT RT CAD from 09/24/2019 TECHNIQUE: Standard CC and MLO images were obtained. R2 CAD reviewed. Bilateral digital breast tomosynthesis included. Additional MLO nipple profile views and tomosynthesis both breast FINDINGS: Right breast: We again see grouping calcifications labeled A, located lateral central portion right breast.. These have not changed appreciably since September 2019. Some of these are fairly dense slight coarse calcifications-which favors benign nature. But some slightly irregular amorphous configuration. There is a similar configuration calcifications compared to 2019 with only some very slight progressive density of few of these the the calcifications since particular when compared back to 2016 More posterior and medial to the above area,, we also see a new developing 2nd group small calcifications labeled B. These small punctate calcifications in again more likely benign forms. I believe a follow-up right mammogram in 6-8 months would be most feasible given these these small groupings of calcifications.. Magnification views, should be included at that time. If any change biopsy of these calcifications may be warranted for definitive diagnosis.. (Or the patient's particularly anxious we could pursue stereotactic for definitive diagnosis, but I do believe these are by far most likely benign calcifications groupings and can be followed safely) Left breast: Stable architecture. Stable area of asymmetric fibroglandular tissue at the medial breast again noted, unchanged since 2017. New dense benign calcification with central lucency noted 12 o'clock IMPRESSION: RIGHT BREAST: Grouping most likely benign calcifications labeled A-with no significant change since since studies earlier this year September 2019; and are similar to 2019 mammograms as well.. But there also New smaller grouping of punctate calcifications slightly deeper at towards medial breast-this labeled B and most likely benign calcifications as well. However considering all, would recommend again a follow-up right mammogram in 6-8 months for ongoing evaluation of these benign-appearing calcifications. LEFT BREAST:-stable follow-up 1 year BI-RAD Category: 3 Probably Benign Finding Short Term Follow-up FOLLOW-UP: 6M 6 Month Follow-up (A letter has been sent to the patient regarding results of the study.) Dictated by: Tony Cordova MD 03/14/2020 14:00 Electronically signed by Tony Cordova MD in [place] 03/14/2020 14:00
== END ==
PROVIDERS: PCP Emergency Medicine; Visit Provider Nurse Practitioner Obstetrics & Gynecology
DX: Z12.31 Encounter for screening mammogram for malignant neoplasm of breast (principal)
CPT/HCPCS: 77063; 77067

== ENCOUNTER → 2020-03-29 09:48 | Outpatient (CLI) | payer MEDICARE, OTHER, SELFPAY ==
[2020-03-29 10:35] VITALS: PULSE 84; PULSE 88
== END ==
PROVIDERS: PCP Emergency Medicine; Visit Provider Internal Medicine Pulmonary Disease
DX: R06.02 Shortness of breath (principal)
CPT/HCPCS: 94060; 94618; 94640; 94726; 94729

== ENCOUNTER → 2020-03-30 08:48 | Outpatient (CLI) | payer MEDICARE, OTHER, SELFPAY | PROVIDERS: PCP Emergency Medicine; Visit Provider Internal Medicine Pulmonary Disease | DX: C34.12 Malignant neoplasm of upper lobe, left bronchus or lung (principal); J43.9 Emphysema, unspecified; G47.34 Idiopathic sleep related nonobstructive alveolar hypoventilation; G47.30 Sleep apnea, unspecified | CPT/HCPCS: 94762 ==

== ENCOUNTER 2020-04-20 10:28 | Outpatient (RCR) | payer MEDICARE, OTHER, SELFPAY | END 2020-08-02 14:43 | disposition home or self-care (01) | LOC: PT 10:28 | PROVIDERS: Visit Provider Internal Medicine Pulmonary Disease | DX: J43.9 Emphysema, unspecified (principal) | CPT/HCPCS: G0424 ==

== ENCOUNTER → 2020-05-17 11:17 | Outpatient (CLI) | payer MEDICARE, OTHER, SELFPAY ==
[2020-05-17 13:28] LABS: Coronavirus 19 IgG Antibody Negative (Negative); Coronavirus 19 IgM Antibody Negative (Negative)
== END ==
PROVIDERS: Visit Provider Specialist
DX: Z01.89 Encounter for other specified special examinations (principal)
CPT/HCPCS: 36415; 86328

== ENCOUNTER → 2020-05-19 19:03 | Outpatient (CLI) | payer MEDICARE, OTHER, SELFPAY | PROVIDERS: PCP Emergency Medicine; Visit Provider Specialist | DX: G47.33 Obstructive sleep apnea (adult) (pediatric) (principal); I10 Essential (primary) hypertension | CPT/HCPCS: 95810 ==

== ENCOUNTER → 2020-06-01 08:50 | Outpatient (CLI) | payer MEDICARE, OTHER, SELFPAY ==
[2020-06-01 09:06] LABS: ABG Base Excess -3.2 mmol/L (-2.4-2.3); ABG Oxygen Saturation 94 % (90-100); ABG PCO2 38.4 mmhg (35.0-45.0); ABG PH 7.38 mmol/L (7.35-7.45); ABG PO2 75.3 mmhg (80-100); ABG TCO2 23.2 mmhg (23-27)
[2020-06-01 09:07] LABS: Allen's Test ACCEPTABLE; Oxygen ROOM AIR %
[2020-06-01 09:08] LABS: Source L RADIAL
== END ==
LOC: LAB 08:51 → RT 06-02 08:02
PROVIDERS: Visit Provider Nurse Practitioner Family
DX: C34.90 Malignant neoplasm of unspecified part of unspecified bronchus or lung (principal); J44.9 Chronic obstructive pulmonary disease, unspecified; R06.00 Dyspnea, unspecified; R09.02 Hypoxemia
CPT/HCPCS: 82803

== ENCOUNTER → 2020-09-13 14:48 | Outpatient (CLI) | payer MEDICARE, OTHER, SELFPAY ==
--- NOTE | 2020-09-13 14:48 | MM_ITS ---
PROCEDURE: MM DIG MAMM DX UNILAT RT CAD Digital Breast Tomosynthesis Included CLINICAL INDICATION: 6 month follow up COMPARISON: MG DIG MAMM-DX UNI-RT from 01/08/2019 MG MM DIG MAMM DX UNILAT RT CAD from 09/24/2019 MG MM DIG SCREENING MAMM BI W/CAD from 03/09/2020 TECHNIQUE: Standard CC and MLO images and 3D Tomosynthesis was obtained. R2 CAD reviewed. Spot-compression MLO and CC views were obtained FINDINGS: The small collection of microcalcifications are stable and have a benign appearance. There is no architectural distortion. There is no suspicious mass. There are no new microcalcifications. IMPRESSION: Stable and primarily benign-appearing microcalcifications, recommend the patient return to normal yearly screening schedule BI-RAD Category: 2 Benign Finding(s) FOLLOW-UP: 6M 6Month Follow-up to return to normal screening schedule (A letter has been sent to the patient regarding results of the study.) Dictated by: Dr. Luis Tripathi MD 09/19/2020 11:40 Dr. Luis Tripathi MD in [place] 09/19/2020 11:40
== END ==
PROVIDERS: PCP Emergency Medicine; Visit Provider Nurse Practitioner Obstetrics & Gynecology
DX: R92.8 Other abnormal and inconclusive findings on diagnostic imaging of breast (principal)
CPT/HCPCS: 77061; 77065; G0279

== ENCOUNTER 2021-05-08 11:53 | Observation (INO) | payer MEDICARE, OTHER, SELFPAY ==
[2021-05-08] VITALS (19 sets, daily range): BP systolic 120–157; BP diastolic 48–75; PULSE 78–102; RESP 16–28; TEMP 36.6–37.3; O2SAT 92–98; BMI 35.4; BMI 35.6
--- NOTE | 2021-05-08 12:06 | XR_ITS ---
PROCEDURE: XR CHEST PORTABLE CLINICAL HISTORY: SOB COMPARISON: CR CXR CHEST(2 VIEWS-NOT PORTABLE) from 04/25/2017 CR CXR CHEST(2 VIEWS-NOT PORTABLE) from 05/06/2017 CR XR CHEST 2V from 12/17/[address] ANGIO CHEST from 12/17/2019 FINDINGS: Mild cardiomegaly without failure. Chronic changes in the lingular region. 2.6 cm left upper lobe mass may be slightly larger and may be better evaluated with chest CT to compare to the previous CT exam No acute bony abnormalities. IMPRESSION: Left apical mass appears slightly more prominent and may be confirmed with chest CT. Cardiomegaly Dictated by: Sukhdev Fair MD 05/08/2021 12:41 Sukhdev Fair MD in [place] 05/08/2021 12:41
--- NOTE | 2021-05-08 12:14 | CT_ITS ---
PROCEDURE: CT ABDOMEN PELVIS WO CON CLINICAL INDICATION: abd pain COMPARISON: CT CT ANGIO CHEST from 12/17/2019 TECHNIQUE: Axial images obtained with sagittal and coronal reformats. All CT scans at the facility use one or more dose reduction, viz: automated exposure control, ma/kV adjustment per patient size (including targeted exams where dose is matched to indication, i.e. head), or iterative reconstruction technique. FINDINGS: LOWER THORAX: No change 8 mm nodule left lung base. Mild atelectatic changes are present in the lung bases. Chronic volume loss of the right middle lobe. Coronary artery calcifications. Mild pericardial thickening posteriorly at 11 mm suggesting small pericardial effusion. ABDOMEN & PELVIS: The liver has an unremarkable appearance. Gallstones are present. No biliary dilatation. The spleen, adrenal glands, and pancreas have an unremarkable appearance. No renal or ureteral calculi. No hydronephrosis. No intestinal obstruction or free air. The there is mild stranding of the perinephric renal fat nonspecific. No evidence of appendicitis. There appears to be a small tip appendicoliths at 2 mm versus an adjacent phleboliths. There is colonic diverticulosis. No evidence of diverticulitis. There is a small umbilical hernia containing fat with some haziness of the fat and also mild haziness of the peritoneal fat deep to the hernia. No acute bony anomaly. There is some minimal subchondral sclerosis of the femoral heads on both sides which could represent developing avascular necrosis. Minimal osteoarthritic changes are present in the hips. IMPRESSION: 1. Small pericardial effusion. 2. Cholelithiasis 3. Colonic diverticulosis. No evidence of diverticulitis. 4. Small umbilical hernia containing fat with haziness of the fat within the hernia and deep to the hernia within the peritoneal fat suggesting underlying inflammatory change. 5. 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 Dictated by: Sukhdev Fair MD 05/08/2021 12:48 Sukhdev Fair MD in [place] 05/08/2021 12:50
[2021-05-08 12:29] LABS: Basophils % 0.5 % (0.1-2.0); Eosinophils # 0.1 K/mm3 (0.0-0.4); Eosinophils % 1.4 % (0.1-12.0); Hematocrit 24.1 % (37.0-47.0); Hemoglobin 7.1 g/dL (12.2-16.2); Lymphocytes # 1.1 K/mm3 (0.7-4.5); Lymphocytes % 18.5 % (10-50); Mean Corpuscular HGB Conc 29.6 g/dL (31.8-35.4); Mean Corpuscular Volume 74.2 fl (81-99); Mean Platelet Volume 9.9 fl (7.4-10.4); Monocytes # 0.3 K/mm3 (0.1-1.0); Monocytes % 5.3 % (1.7-9.3); Neutrophils # 4.3 K/mm3 (1.8-7.8); Neutrophils % 74.3 % (37.0-80.0); Platelet Count 267 K/mm3 (142-424); Red Blood Count 3.25 M/mm3 (4.20-5.40); Red Cell Distribution Width 16.8 % (11.5-17.5); White Blood Count 5.8 K/mm3 (4.8-10.8)
--- NOTE | 2021-05-08 12:31 | PC.NURSE ---
Pt to rad
[2021-05-08 12:32] LABS: Chloride 107 mmol/L (98-107); Potassium 4.1 mmoL/L (3.5-5.1); Sodium 141 mmol/L (136-145)
[2021-05-08 12:35] LABS: Alanine Aminotransferase 39 U/L (12-78); Anion Gap 12.1 mEq/L (5-15); Aspartate Amino Transferase 47 U/L (14-36); Bilirubin,Unconjugated 0.2 mg/dL (0.0-1.1); Blood Urea Nitrogen 16 mg/dl (7-17); Calcium 8.6 mg/dl (8.4-10.2); Carbon Dioxide 26 mmol/L (22.0-30.0); Creatinine Clearance Estimated 73 mL/min (50-200); Estimated Glomerular Filt Rate 62 ml/min (>60); GFR (African American) 74 ML/MIN (>60); Glucose 120 mg/dl (74-100)
[2021-05-08 12:36] LABS: Albumin Level 3.8 g/dl (3.5-5.0); Alkaline Phosphatase 77 U/L (38-126); Bilirubin,Indirect 0.2 mg/dL (0.0-0.9); Bilirubin,Total 0.2 mg/dl (0.2-1.3); Total Protein,Serum 6.7 g/dl (6.3-8.2)
[2021-05-08 12:48] LABS: Troponin I 0.07 ng/ml (0.00-0.034)
--- NOTE | 2021-05-08 12:57 | ECG_ITS ---
APPROVED REPORT Exam: Resting ECG HR:81 bpm ECG Measurements Heart Rate 81 AXES CO 130 P 66 QRSd 64 QRS 59 QT 390 T 94 QTc 453 Conclusion Normal sinus rhythm Low voltage QRS Borderline ECG Electronically signed by : Papa Florez MD 05/10/2021 21:10:18
--- NOTE | 2021-05-08 13:16 | HMH.EDGENADL ---
ED Disposition Clinical Impression: Symptomatic anemia Lung cancer Qualifiers: Laterality: left Lung location: lower lobe of lung Qualified Code(s): C34.32 - Malignant neoplasm of lower lobe, left bronchus or lung Disposition: Admitted As Inpatient Condition on Discharge: Fair Referrals: Alan Brand MD [Primary Care Provider] - - Critical Care Critical Care Time: No Attestation: On 05/08/21, the high probability of a clinically significant, sudden or life threatening deterioration of the following system(s) required my full and direct attention, intervention and personal management. The time I documented below is in addition to time spent performing reported procedures but includes the following listed in this critical care notation. Medical Decision Making - Medical Records Medical records reviewed: Yes: I reviewed the patient's medical records. - Luan Inquiry Pt receiving controlled substance: No Vital Signs: 05/08/21 12:08 Temperature 98.6 F Temperature Source Oral Pulse Rate [Radial] 88 Respiratory Rate 28 H Blood Pressure [Right Arm] 157/67 H Blood Pressure Mean [Right Arm] 97 Blood Pressure Position [Right Arm] Sitting 02 Sat by Pulse Oximetry 98 Oxygen Delivery Method Nasal Cannula Oxygen Flow Rate (LPM) 2 - Lab Data Lab Results 05/08/21 12:19: WBC 5.8, RBC 3.25 L, Hgb 7.1 L, Hct 24.1 L, MCV 74.2 L, MCH 22.0 L, MCHC 29.6 L, RDW 16.8, Plt Count 267, MPV 9.9, Neut % (Auto) 74.3, Lymph % (Auto) 18.5, [place] % (Auto) 5.3, Eos % (Auto) 1.4, Baso % (Auto) 0.5, Neut # (Auto) 4.3, Lymph # (Auto) 1.1, [place] # (Auto) 0.3, Eos # (Auto) 0.1, Baso # (Auto) 0.0 05/08/21 12:19: Sodium 141, Potassium 4.1, Chloride 107, Carbon Dioxide 26, Anion Gap 12.1, BUN 16, Creatinine 0.90, Estimated Creat Clear 73, Estimated GFR 62, Est GFR ( Amer) 74, Glucose 120 H, Calcium 8.6, Troponin I 0.07 H 05/08/21 12:19: Total Bilirubin 0.2, Direct Bilirubin 0.0, Conjugated Bilirubin 0.0, Indirect Bilirubin 0.2, Unconjugated Bilirubin 0.2, AST 47 H, ALT 39, Alkaline Phosphatase 77, Total Protein 6.7, Albumin 3.8 05/08/21 13:30: SARS-CoV-2 (PCR) Not detected, Influenza A Untype (PCR) Not detected, Influenza Type B (PCR) Not detected Result diagrams: 05/08/21 12:19 05/08/21 12:19 Orders (Tests/Meds): ED MEDICATIONS Discontinued Medications Generic Name Dose Route Start Last Admin Trade Name Freq PRN Reason Stop Dose Admin Sodium Chloride 1,000 mls @ 999 mls/hr 05/08/21 12:15 05/08/21 12:30 Sod Chlor 0.9% 1000ml Bag IV 05/08/21 13:15 999 mls/hr .Q1H1M MIKE Administration Morphine Sulfate 4 mg 05/08/21 12:14 05/08/21 12:30 Morphine 4mg/Ml Syringe IV 05/08/21 12:15 4 mg ONCE ONE Administration Ondansetron HCl 4 mg 05/08/21 12:14 05/08/21 12:30 Ondansetron 4mg/2ml Vial IV 05/08/21 12:15 4 mg ONCE ONE Administration ORDERS Category Date Time Status Occult Blood,Stool Stat Lab 05/08/21 13:15 Ordered Troponin I Q3H Lab 05/08/21 15:35 Received Troponin I Q3H Lab 05/08/21 18:15 Ordered - Radiology Data #1 Image(s): Chest Image Reviewed: Yes I reviewed the patient's radiology results, Yes I reviewed the patient's radiology image, Yes I reviewed the patient's radiology image w/the ED provider IMPRESSION: Left apical mass appears slightly more prominent and may be confirmed with chest CT. Cardiomegaly - CT Data CT Scan: Abdomen, Pelvis Time Received: 16:[address] Reviewed: Yes: I have reviewed the patient's CT results, I have viewed the radiologist's interpretation Findings Narrative: IMPRESSION: 1. Small pericardial effusion. 2. Cholelithiasis 3. Colonic diverticulosis. No evidence of diverticulitis. 4. Small umbilical hernia containing fat with haziness of the fat within the hernia and deep to the hernia within the peritoneal fat suggesting underlying inflammatory change. 5. Possible avascular necrosis of the femoral heads on both s
[2021-05-08 13:35] LABS: Coronavirus 19, PCR Not Detected (NotDetected); Influenza A, PCR Not Detected (NotDetected); Influenza B, PCR Not Detected (NotDetected)
--- NOTE | 2021-05-08 14:12 | CA_ITS ---
APPROVED REPORT EXAM: Comprehensive 2D, Doppler, and color-flow Echocardiogram Patent Counsel: Milena Guzman RVT Ht: 5 ft 3 in Wt: 200lbs BSA: 1.93 BP: 157/67 mmHg Indications: CHF,SOA,CAD,COPD,HTN,HLD,HX LUNG CA TDS-OVERLAYING LUNG,BODY HABITUS 2D Dimensions LVOT 1.80 cm (M/F) 1.5-2.5 LA Volume 55.90 mL LA Volume Index 28.96 mL/m2 (M/F) 16-34 M-Mode Dimensions RVDd 2.79 cm (0.9-2.6) LA Diam 4.18 cm (1.9-4.0) LVDd 4.40 cm (3.5-5.7) Ao Diam 2.80 cm (2.0-3.7) LVDs 2.32 cm (3.5-5.7) IVSd 1.19 cm (0.6-1.1) PWd 0.91 cm (0.6-1.1) EF (Teich) 78.90% FS 47.30% EDV (Teich) 87.70 mL ESV (Teich) 18.50 mL LV Diastology E Decel Time 183.00 (160-240 msec) E/A Ratio 1.0 MED E' 6.10 (< 7 cm/sec) E'/MED E' Ratio 19.74 (>14) LAT E' 7.60 (<10 cm/sec) E/LAT E' Ratio 15.84 (>14) Mitral Valve MV E Max August. 120.00 (40-130 cm/s) MV A Velocity 125.00 (40-130 cm/s) E/A Ratio 0.97 MV Decel. Time 183.00 (160-240 ms) MV PHT 54.00 ms Pulmonary Valve PV Peak Velocity 80.00 (50-150 cm/s) Tricuspid Valve TR P. Velocity 194.00 cm/s RAP Estimate 10.00 mmHg RVSP 25.10 mmHg Left Ventricle Left atrium is mildly enlarged, left ventricle is normal size, mild concentric left ventricular hypertrophy, visually estimated ejection fraction 55% with no regional wall motion abnormality, grade 1 diastolic dysfunction seen with tissue Doppler evidence of raise left atrial pressure. Right Ventricle Right atrium and right ventricle mildly enlarged with normal contractility. Aortic Valve Aortic valve is minimally thickened and fibrosed, there is no aortic stenosis or aortic insufficiency. Mitral Valve Mitral valve is grossly normal, there is trace mitral regurgitation. Tricuspid Valve Tricuspid valve grossly normal, there is trace tricuspid regurgitation tricuspid rotation jet velocity is inadequate for calculation of the right ventricular systolic pressure. Pulmonic Valve Pulmonic valve is poorly visualized. Great Vessels Aortic root is normal size. Inferior vena cava is poorly visualized. Pericardium Small pericardial effusion noted. Conclusion 1. Mild biatrial normal, normal left ventricular size, mild concentric left ventricular hypertrophy, visually estimated ejection fraction 55% with no regional wall motion abnormality grade 1 diastolic dysfunction seen without tissue Doppler evidence of raise left atrial pressure. 2. Mildly enlarged right ventricle with normal contractility. 3. Trace mitral and tricuspid regurgitation. 4. Small pericardial effusion noted. Electronically signed by : Yousuf Conley MD 05/08/2021 19:57:24
[2021-05-08 16:07] LABS: Troponin I 0.08 ng/ml (0.00-0.034)
--- NOTE | 2021-05-08 16:57 | PC.NURSE ---
ATTEMPTED TO CALL REPORT
--- NOTE | 2021-05-08 18:01 | PC.NURSE ---
pt arrived to the floor at this time
[2021-05-09] VITALS (14 sets, daily range): BP systolic 132–156; BP diastolic 59–71; PULSE 77–104; RESP 16–24; TEMP 36.8–37.4; O2SAT 90–100; BMI 35.7
--- NOTE | 2021-05-09 04:51 | PC.NURSE ---
Patient is alert and oriented x4. Patient received 2 units of blood this shift per order. Patient has rested well. Expiratory wheezing noted in lungs. VSS, call light within reach, will continue to monitor.
[2021-05-09 04:55] LABS: Basophils % 0.5 % (0.1-2.0); Eosinophils # 0.1 K/mm3 (0.0-0.4); Eosinophils % 0.9 % (0.1-12.0); Hematocrit 29.8 % (37.0-47.0); Lymphocytes # 1.9 K/mm3 (0.7-4.5); Lymphocytes % 25.2 % (10-50); Mean Corpuscular HGB Conc 29.4 g/dL (31.8-35.4); Mean Corpuscular Hemoglobin 23.6 pg (27.0-31.2); Mean Corpuscular Volume 80.1 fl (81-99); Mean Platelet Volume 10.6 fl (7.4-10.4); Monocytes # 0.4 K/mm3 (0.1-1.0); Neutrophils % 67.4 % (37.0-80.0); Platelet Count 233 K/mm3 (142-424); Red Blood Count 3.72 M/mm3 (4.20-5.40); White Blood Count 7.4 K/mm3 (4.8-10.8)
[2021-05-09 05:03] LABS: Hemoglobin 8.8 g/dL (12.2-16.2)
[2021-05-09 05:06] LABS: Alanine Aminotransferase 34 U/L (12-78); Albumin Level 3.7 g/dl (3.5-5.0); Albumin/Globulin Ratio 1.3 (1.1-1.8); Alkaline Phosphatase 63 U/L (38-126); Anion Gap 10.3 mEq/L (5-15); Aspartate Amino Transferase 35 U/L (14-36); Bilirubin,Total 0.3 mg/dl (0.2-1.3); Blood Urea Nitrogen 18 mg/dl (7-17); Calcium 8.1 mg/dl (8.4-10.2); Carbon Dioxide 27 mmol/L (22.0-30.0); Chloride 109 mmol/L (98-107); Creatinine Clearance Estimated 67 mL/min (50-200); Estimated Glomerular Filt Rate 49 ml/min (>60); GFR (African American) 59 ML/MIN (>60); Globulin 2.8 g/dL (1.3-3.2); Glucose 118 mg/dl (74-100); Potassium 4.3 mmoL/L (3.5-5.1); Sodium 142 mmol/L (136-145); Total Protein,Serum 6.5 g/dl (6.3-8.2)
--- NOTE | 2021-05-09 07:53 | P.CONPHA_ITS ---
[facility] Pharmacy VTE Monitoring - Patient Demographics Admission date: 05/08/21 Report Date: 05/09/21 Time: 07:53 Allergies/Adverse Reactions: Patient Allergies fenofibrate [FENOFIBRATE] Allergy (Unknown, Verified 11/23/20 13:14) S-ANAPHYLAXIS oxaprozin [OXAPROZIN] Allergy (Unknown, Verified 11/23/20 13:14) S-ANAPHYLAXIS Height: 1.6 m Weight: 91.427 kg Patient Problems: Current Active Problems Symptomatic anemia (Acute) Lung cancer (Chronic) - VTE Risk Labs: VTE Related Lab Results Hgb 8.8 g/dL (12.2-16.2) L D 05/09/21 04:45 Hct 29.8 % (37.0-47.0) L 05/09/21 04:45 Plt Count 233 K/mm3 (142-424) 05/09/21 04:45 BUN 18 mg/dl (7-17) H 05/09/21 04:45 Creatinine 1.10 mg/dl (0.52-1.04) H D 05/09/21 04:45 Estimated Creat Clear 67 mL/min (50-200) 05/09/21 04:45 VTE Score: 4 VTE Risk Level: Low Risk - Prophylaxis VTE Prophylaxis Ordered?: Yes Types of VTE Prophylaxis: IPCS Thigh High Location of Applied Device: Bilateral Lower Extremeties
--- NOTE | 2021-05-09 08:42 | HMH.GSCON ---
*Admission Date: 05/08/21 *Reason for consult:: Hernia with inflammatory changes *History of present illness: Patient is a 70-year-old female with history of lung cancer undergone radiation therapy in [place]. She presented to the emergency department with generalized weakness and shortness of air for several days with lack of energy. She has felt weak. She describes some vague abdominal discomfort. She was found to be significantly anemic on blood work. Part of her work-up included CT scan performed without any contrast whatsoever which revealed findings of small umbilical hernia containing fat with haziness suggesting underlying inflammatory change. This prompted surgical consultation. Review of Systems - Review of Systems Review of systems:: pertinent systems reviewed and negative unless documented below - *Neurologic Reports weakness [facility] History I have reviewed the patient's past medical history: Yes Medical History: Reports:: Anxiety, Asthma, Cancer (LUNG CANCER), Chronic Obstructive Pulmonary Disease (COPD), Coronary Artery Disease, Depression, Hyperlipidemia, Hypertension Denies:: Diabetes Mellitus Type 1, Diabetes Mellitus Type 2, MRSA, Seizures *Have you ever received a pneumonia vaccine?: Yes *Have you received a flu vaccine this season?: Yes Other Medical History: Reports: Anemia, Radiation Therapy, Other. Denies: Blood Transfusion Reaction Laterality Cases: Bilateral: Carpal Tunnel Release Other Surgeries: Yes: No Previous Surgery, Cancer Surgery (BIOPSY, SKIN CANCER), Colonoscopy, EGD, Tubal Ligation, Other Amputation: No Fractures: No - *Social History Last grade of school completed: 7th or 8th Smoking Status: Former smoker Alcohol Intake: current Alcohol Intake Frequency:: holidays/special occasions only Substance Use Type: denies use *Occupational Status:: retired Housing: house Household Members: family *Travel in the last 8 weeks: None - Psychiatric History Pschychiatric History:: Reports:: Anxiety, Depression Family Hx:: Cancer Meds Home Medications Medication Instructions Recorded Confirmed Type Aspirin [Low Dose Aspirin EC] 81 mg PO DAILY 03/27/19 05/09/21 History tizanidine 4 mg capsule 4 mg PO TID PRN #270 cap 06/15/20 05/08/21 Rx albuterol sulfate 1.25 mg/3 mL 1.25 mg INHALATION QID PRN #90 ml 02/27/21 05/08/21 Rx solution for nebulization albuterol sulfate 90 mcg/actuation 1 inh INHALATION QID PRN #8.5 g 02/27/21 05/08/21 Rx aerosol inhaler Escitalopram Oxalate 20 mg PO DAILY 05/08/21 05/09/21 History Fluticasone/Umeclidin/Vilanter 1 inh INHALATION DAILY 05/08/21 05/08/21 History [Trelegy Ellipta] Trazodone HCl 50 mg PO QHS 05/08/21 05/08/21 History Allergies Allergy/AdvReac Type Severity Reaction Status Date / Time fenofibrate [FENOFIBRATE] Allergy Unknown S-ANAPHYLAX Verified 11/23/20 13:14 IS oxaprozin [OXAPROZIN] Allergy Unknown S-ANAPHYLAX Verified 11/23/20 13:14 IS Exam Vital signs and Labs for Last 24 Hours: Temp Pulse Resp BP Pulse Ox 98.5 F 85 17 145/61 H 95 05/09/21 04:40 05/09/21 04:40 05/09/21 04:40 05/09/21 04:40 05/09/21 04:40 Laboratory Results - last 24 hr 05/08/21 12:19: WBC 5.8, RBC 3.25 L, Hgb 7.1 L, Hct 24.1 L, MCV 74.2 L, MCH 22.0 L, MCHC 29.6 L, RDW 16.8, Plt Count 267, MPV 9.9, Neut % (Auto) 74.3, Lymph % (Auto) 18.5, [place] % (Auto) 5.3, Eos % (Auto) 1.4, Baso % (Auto) 0.5, Neut # (Auto) 4.3, Lymph # (Auto) 1.1, [place] # (Auto) 0.3, Eos # (Auto) 0.1, Baso # (Auto) 0.0 05/08/21 12:19: Sodium 141, Potassium 4.1, Chloride 107, Carbon Dioxide 26, Anion Gap 12.1, BUN 16, Creatinine 0.90, Estimated Creat Clear 73, Estimated GFR 62, Est GFR ( Amer) 74, Glucose 120 H, Calcium 8.6, Troponin I 0.07 H 05/08/21 12:19: Total Bilirubin 0.2, Direct Bilirubin 0.0, Conjugated Bilirubin 0.0, Indirect Bilirubin 0.2, Unconjugated Bilirubin 0.2, AST 47 H, ALT 39, Alkaline Phosphatase 77, Total Protein 6.7, Albumin 3.8 05/08/21 13:30: HARRIET
--- NOTE | 2021-05-09 11:10 | CT_ITS ---
PROCEDURE: CT CHEST WO CON CLINICAL INDICATION: cxr mass Left upper lobe mass follow-up COMPARISON: CT CT ANGIO CHEST from 12/17/2019 CR XR CHEST PORTABLE from 05/08/2021 TECHNIQUE: Axial images obtained with sagittal and coronal reformats. All CT scans at the facility use one or more dose reduction, viz: automated exposure control, ma/kV adjustment per patient size (including targeted exams where dose is matched to indication, i.e. head), or iterative reconstruction technique. FINDINGS: HEART AND MEDIASTINAL STRUCTURES: There are small mediastinal lymph nodes which do not appear significantly changed. Coronary artery calcifications and/or stents noted. There is mild cardiomegaly. The pericardium is thickened measuring up to 14 mm posteriorly consistent with pericardial effusion. There is minimal calcification of the mitral valve annulus. LUNGS AND PLEURAL SPACES: There is a left upper lobe mass which is increased in size measuring 4.3 by 2.5 cm consistent with neoplasm. This abuts the anterior chest wall just lateral to the 1st costal sternal junction. No obvious rib destruction. There is left upper lobe volume loss proximal to the left upper lobe mass with bronchial thickening. There is mild thickening of the right major fissure superiorly. Chronic volume loss noted in the right middle lobe posteriorly with slight increase in opacification at this area. There is COPD. Peripheral ground-glass opacification noted in the right lung base posteriorly. There is some interstitial thickening in the right lung base is well. Faint infiltrate also noted in the left lower lobe posteriorly and inferiorly. Bibasilar atelectatic changes. No change in the 8 mm Olamide fissural nodule in the left lower lobe. There is a new area of parenchymal opacification in the superior segment of the left lower lobe posteriorly abutting the pleural surface measuring 3 by 1.8 cm with some peripheral lucency suggesting cavitation. Just cephalad to this region is an additional small area of opacification at 1.6 cm. No pleural effusions BONY STRUCTURES: No acute bony abnormalities apparent. UPPER ABDOMEN: Unremarkable. ADDITIONAL FINDINGS: No other significant abnormalities. IMPRESSION: 1. Enlarging left upper lobe mass suspicious for neoplasm. Volume loss in the left upper lobe central to this lesion with bronchial thickening. Possibly due to bronchial spread of the mass. Consider pulmonology consult 2. New subpleural area of opacification in the left upper lobe superior segment with some suspected peripheral cavitation. This could be infectious or neoplastic in origin. 3. Ground-glass opacification in the right lower lobe and to lesser degree in the left lower lobe suggesting pneumonia possibly due to Covid19/viral or atypical pneumonia 4. Chronic right middle lobe volume loss slightly increased 5. Small pericardial effusion Dictated by: Sukhdev Fair MD 05/10/2021 08:12 Sukhdev Fair MD in [place] 05/10/2021 08:12
--- NOTE | 2021-05-09 11:18 | HMH.HP ---
*Admission Date: 05/08/21 <Alan Brand 05/09/21 11:18> *Chief complaint: weakness <Alan Brand 05/09/21 11:18> *History of present illness: 70-year-old female presented to the emergency department with some generalized weakness and shortness of breath for the last few days. Patient states that she just has not had any energy. She has not been getting out of bed because she feels so weak. Patient felt like she was short of breath as well. Is more on exertion than anything. She has not had any cough or hemoptysis. She denies any fevers or chills. She is having some abdominal discomfort. She feels there is a lump in the middle of her abdomen. She has had normal bowel movements. No bleeding. No dysuria or hematuria. No nausea or vomiting. She does not have any headache or change in vision. No focal weakness. has known lung cancer and was anemia requiring transfusion <Alan Brand 05/10/21 07:28> [facility] History I have reviewed the patient's past medical history: Yes <Angelica Kwan 05/09/21 13:32> Medical History: Reports:: Anxiety, Asthma, Cancer, Chronic Obstructive Pulmonary Disease (COPD), Coronary Artery Disease, Depression <Angelica Kwan 05/09/21 13:32> Reports:: Anxiety, Asthma, Cancer (LUNG CANCER), Chronic Obstructive Pulmonary Disease (COPD), Coronary Artery Disease, Depression, Hyperlipidemia, Hypertension Denies:: Diabetes Mellitus Type 1, Diabetes Mellitus Type 2, MRSA, Seizures <Alan Brand 05/09/21 11:18> *Have you ever received a pneumonia vaccine?: Yes <Alan Brand 05/09/21 11:18> *Have you received a flu vaccine this season?: Yes <Alan Brand 05/09/21 11:18> Other Medical History: Reports: Anemia, Radiation Therapy, Other. Denies: Blood Transfusion Reaction <Alan Brand 05/09/21 11:18> Laterality Cases: Bilateral: Carpal Tunnel Release <Alan Brand 05/09/21 11:18> Other Surgeries: Yes: No Previous Surgery, Cancer Surgery (BIOPSY, SKIN CANCER), Colonoscopy, EGD, Tubal Ligation, Other <Alan Brand 05/09/21 11:18> Amputation: No <Alan Brand 05/09/21 11:18> Fractures: No <Alan Brand 05/09/21 11:18> - *Social History Last grade of school completed: 7th or 8th <Alan Brand 05/09/21 11:18> Smoking Status: Former smoker <Alan Brand 05/09/21 11:18> Alcohol Intake: current <Alan Brand 05/09/21 11:18> Alcohol Intake Frequency:: holidays/special occasions only <Alan Brand 05/09/21 11:18> Substance Use Type: denies use <Alan Brand 05/09/21 11:18> *Occupational Status:: retired <Alan Brand 05/09/21 11:18> Housing: house <Alan Brand 05/09/21 11:18> Household Members: family <Alan Brand 05/09/21 11:18> *Travel in the last 8 weeks: None <Alan Brand 05/09/21 11:18> - Psychiatric History Pschychiatric History:: Reports:: Anxiety, Depression <Alan Brand 05/09/21 11:18> Family Hx:: Cancer <Alan Brand 05/09/21 11:18> Review of Systems - Review of Systems Review of systems:: pertinent systems reviewed and negative unless documented below <Angelica Kwan 05/09/21 13:32> - Constitutional Reports fatigue, Reports lack of energy, Reports weakness, Denies body ache(s) <Angelica Kwan 05/09/21 13:32> - Eyes Denies blurry vision <Angelica Kwan 05/09/21 13:32> - ENT Denies ear pain <Angelica Kwan 05/09/21 13:32> - *Cardiovascular Denies fainting <Angelica Kwan 05/09/21 13:32> - *Respiratory Denies chest congestion <Angelica Kwan 05/09/21 13:32> - *Gastrointestinal Reports abdominal pain, Denies belching <Angelica Kwan 05/09/21 13:32> - *Genitourinary Denies side pain <Angelica Kwan 05/09/21 13:32> - *Musculoskeletal Denies joint swelling <Angelica Kwan 05/09/21 13:32> - Integumentary/Breasts Denies bleeding lesions <Angelica Kwan 05/09/21 13:32>
--- NOTE | 2021-05-09 11:50 | HMH.CNCARD ---
History of Present Illness Consult date: 05/09/21 Requesting physician: Alan Brand Consult reason: shortness of breath, pre-op evaluation Chief complaint: Shortness of breath and pre-op eval History of present illness: 70-year-old female admitted to [facility] with abdominal pain and generalized weakness. Patient states for the past few days prior to admission, she was experiencing increased weakness along with shortness of breath. Patient states she developed her stomach was swelling and that was causing her to be short of breath. Patient denies chest pain, tightness or pressure. Patient does complain of shortness of breath with minimal exertion. Patient does have history of COPD which is managed by PCP. Patient denies cough or fever. Patient denies palpitations or dizziness. Cardiology was consulted for preop evaluation for umbilical hernia repair. Patient does have history of coronary artery disease. Last heart catheterization was in 2017, revealed mild coronary artery disease. Patient is a non-smoker. History of hypertension and hyperlipidemia. Patient was last seen by home care and home health aides teacher in 2019. Patient does currently have lung cancer. Patient states she has been taking radiation and chemo treatments at [facility] until recently. Patient states she is currently not taking treatments at this time. No swelling noted of the lower extremity. Abdominal CT scan revealed small pericardial effusion. Small umbilical hernia containing fat with haziness of fat within the hernia and deep to the hernia within the peritoneal fat suggesting underlying inflammatory change. Echocardiogram was performed which revealed EF 55% with no regional wall motion abnormality with a grade 1 diastolic dysfunction. Trace of MR and TR noted. Small pericardial effusion also noted. Vital signs are stable. Patient was noted to be anemic when first arriving to hospital. Patient did receive 2 units of packed red blood cells yesterday. H&H have responded well. Hemoglobin 8.8. EKG reveals normal sinus rhythm with a heart rate of 81 bpm. Serial troponins have been performed. Troponins x2 range from 0.07 - 0.08. This may be due to demand ischemia. Pt is asymptomatic. Abd CT:IMPRESSION: 1. Small pericardial effusion. 2. Cholelithiasis 3. Colonic diverticulosis. No evidence of diverticulitis. 4. Small umbilical hernia containing fat with haziness of the fat within the hernia and deep to the hernia within the peritoneal fat suggesting underlying inflammatory change. 5. 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 Echo:Conclusion 1. Mild biatrial normal, normal left ventricular size, mild concentric left ventricular hypertrophy, visually estimated ejection fraction 55% with no regional wall motion abnormality grade 1 diastolic dysfunction seen without tissue Doppler evidence of raise left atrial pressure. 2. Mildly enlarged right ventricle with normal contractility. 3. Trace mitral and tricuspid regurgitation. 4. Small pericardial effusion noted. Discussed plan of care with Dr. Mcdonald. Orders and recommendations were received from Dr. Mcdonald. Echocardiogram revealed EF 55% with no regional wall motion abnormality, grade 1 diastolic dysfunction noted. Trace of MR and TR noted with small pericardial effusion. From a cardiac standpoint, patient is at a low and acceptable risk to proceed with her elective surgery. Patient will need to follow-up with cardiology on an outpatient basis for further cardiac testing. Thank you for allowing cardiology to participate in the care of this patient. [facility] History I have reviewed the patient's past medical history: Yes Medical History: Reports:: Anxiety, Asthma, Cancer (LUNG CANCER), Chronic Obstructive Pulmonary Disease (COPD), Coronary Artery Disease, Depression, Hyperlipidemia, Hypertension Denies:: Diabetes Mellitus Type 1, Diabetes Mellitus Type 2, MRSA, [place]
--- NOTE | 2021-05-09 13:33 | HMH.DCSUM ---
General - General Admission date:: 05/08/21 Discharge date: 05/09/21 HPI HPI: 70-year-old female presented to the emergency department with some generalized weakness and shortness of breath for the last few days. Patient states that she just has not had any energy. She has not been getting out of bed because she feels so weak. Patient felt like she was short of breath as well. Is more on exertion than anything. She has not had any cough or hemoptysis. She denies any fevers or chills. She is having some abdominal discomfort. She feels there is a lump in the middle of her abdomen. She has had normal bowel movements. No bleeding. No dysuria or hematuria. No nausea or vomiting. She does not have any headache or change in vision. No focal weakness. Hospital Course Hospital Course: Laboratory Tests 05/08/21 05/08/21 05/08/21 12:19 12:19 12:19 WBC 5.8 RBC 3.25 L Hgb 7.1 L Hct 24.1 L MCV 74.2 L MCH 22.0 L MCHC 29.6 L RDW 16.8 Plt Count 267 MPV 9.9 Neut % (Auto) 74.3 Lymph % (Auto) 18.5 Saline % (Auto) 5.3 Eos % (Auto) 1.4 Baso % (Auto) 0.5 Neut # (Auto) 4.3 Lymph # (Auto) 1.1 Saline # (Auto) 0.3 Eos # (Auto) 0.1 Baso # (Auto) 0.0 Sodium 141 Potassium 4.1 Chloride 107 Carbon Dioxide 26 Anion Gap 12.1 BUN 16 Creatinine 0.90 Estimated Creat Clear 73 Estimated GFR 62 Est GFR ( Amer) 74 Glucose 120 H Calcium 8.6 Total Bilirubin 0.2 Direct Bilirubin 0.0 Conjugated Bilirubin 0.0 Indirect Bilirubin 0.2 Unconjugated Bilirubin 0.2 AST 47 H ALT 39 Alkaline Phosphatase 77 Troponin I 0.07 H Total Protein 6.7 Albumin 3.8 Globulin Albumin/Globulin Ratio SARS-CoV-2 (PCR) Influenza A Untype (PCR) Influenza Type B (PCR) Blood Type Blood Type Confirm Antibody Screen Crossmatch (AHG) 05/08/21 05/08/21 05/08/21 13:30 15:35 18:09 WBC RBC Hgb Hct MCV MCH MCHC RDW Plt Count MPV Neut % (Auto) Lymph % (Auto) Saline % (Auto) Eos % (Auto) Baso % (Auto) Neut # (Auto) Lymph # (Auto) Saline # (Auto) Eos # (Auto) Baso # (Auto) Sodium Potassium Chloride Carbon Dioxide Anion Gap BUN Creatinine Estimated Creat Clear Estimated GFR Est GFR ( Amer) Glucose Calcium Total Bilirubin Direct Bilirubin Conjugated Bilirubin Indirect Bilirubin Unconjugated Bilirubin AST ALT Alkaline Phosphatase Troponin I 0.08 H Total Protein Albumin Globulin Albumin/Globulin Ratio SARS-CoV-2 (PCR) Not detected Influenza A Untype (PCR) Not detected Influenza Type B (PCR) Not detected Blood Type A Positive Blood Type Confirm Antibody Screen Negative Crossmatch (AHG) See Detail 05/08/21 05/09/21 05/09/21 18:09 04:45 04:45 WBC 7.4 D RBC 3.72 L Hgb 8.8 L D Hct 29.8 L MCV 80.1 L MCH 23.6 L MCHC 29.4 L RDW 18.0 H Plt Count 233 MPV 10.6 H Neut % (Auto) 67.4 Lymph % (Auto) 25.2 Saline % (Auto) 6.0 Eos % (Auto) 0.9 Baso % (Auto) 0.5 Neut # (Auto) 5.0 Lymph # (Auto) 1.9 Saline # (Auto) 0.4 Eos # (Auto) 0.1 Baso # (Auto) 0.0 Sodium 142 Potassium 4.3 Chloride 109 H Carbon Dioxide 27 Anion Gap 10.3 BUN 18 H Creatinine 1.10 H D Estimated Creat Clear 67 Estimated GFR 49 L Est GFR ( Amer) 59 D Glucose 118 H Calcium 8.1 L Total Bilirubin 0.3 Direct Bilirubin Conjugated Bilirubin Indirect Bilirubin Unconjugated Bilirubin AST 35 D ALT 34 Alkaline Phosphatase 63 Troponin I Total Protein 6.5 Albumin 3.7 Globulin 2.8 Albumin/Globulin Ratio 1.3 SARS-CoV-2 (PCR) Influenza A Untype (PCR) Influenza Type B (PCR) Blood Type Blood Type
--- NOTE | 2021-05-09 14:45 | HMH.PHAINT ---
DISCHARGE MEDICATION EDUCATION COMPLETE. PATIENT STATED SHE HAD NO QUESTIONS
== END 2021-05-09 15:36 | disposition home or self-care (01) ==
LOC: ER 16:10 → 2ND 16:44
PROVIDERS: Admitting Provider Emergency Medicine; Emergency Provider Emergency Medicine; PCP Emergency Medicine; Visit Provider Emergency Medicine
DX: D64.9 Anemia, unspecified (principal); C34.32 Malignant neoplasm of lower lobe, left bronchus or lung; J44.9 Chronic obstructive pulmonary disease, unspecified; I10 Essential (primary) hypertension; I25.10 Atherosclerotic heart disease of native coronary artery without angina pectoris; E78.5 Hyperlipidemia, unspecified; Z79.899 Other long term (current) drug therapy; M48.062 Spinal stenosis, lumbar region with neurogenic claudication; M54.12 Radiculopathy, cervical region; K80.20 Calculus of gallbladder without cholecystitis without obstruction; K57.90 Diverticulosis of intestine, part unspecified, without perforation or abscess without bleeding; M87.052 Idiopathic aseptic necrosis of left femur; M87.051 Idiopathic aseptic necrosis of right femur; K42.9 Umbilical hernia without obstruction or gangrene; Z20.822 Contact with and (suspected) exposure to COVID-19
CPT/HCPCS: G0378; 36415; 71045; 71250; 74176; 80048; 80053; 80076; 84484; 85025; 86850; 93005; 93306; 96365; 96375; 99284; C9803; J2405; P9016; U0003; U0005

== ENCOUNTER 2021-08-26 17:37 | Inpatient (IN) | payer MEDICARE, OTHER, SELFPAY ==
[2021-08-26] VITALS (15 sets, daily range): BP systolic 121–157; BP diastolic 45–72; PULSE 87–103; RESP 17–24; TEMP 36.9–37.7; O2SAT 86–96; BMI 34.3; BMI 33.5
--- NOTE | 2021-08-26 18:04 | XR_ITS ---
PROCEDURE INFORMATION: Exam: XR Chest Exam date and time: 08/26/2021 6:04 PM Age: 70 years old Clinical indication: Shortness of breath; Additional info: SOA, HX of copd TECHNIQUE: Imaging protocol: XR of the chest. Views: 1 view. COMPARISON: CT CHEST WO CON 05/09/2021 2:19 PM FINDINGS: Lungs: Faint bibasilar infiltrates. Known left apical mass. Pleural spaces: Unremarkable. No pleural effusion. No pneumothorax. Heart/Mediastinum: Cardiomegaly. Bones/joints: Unremarkable. IMPRESSION: Faint bibasilar infiltrates may represent pneumonia. Known left apical mass.
[2021-08-26 18:23] LABS: Influenza A, PCR Not Detected (NotDetected); Influenza B, PCR Not Detected (NotDetected)
[2021-08-26 19:05] LABS: Alanine Aminotransferase 16 U/L (12-78); Albumin Level 3.5 g/dl (3.5-5.0); Albumin/Globulin Ratio 1.3 (1.1-1.8); Alkaline Phosphatase 56 U/L (38-126); Anion Gap 11.2 mEq/L (5-15); Aspartate Amino Transferase 29 U/L (14-36); Bilirubin,Total 0.4 mg/dl (0.2-1.3); Blood Urea Nitrogen 30 mg/dl (7-17); Calcium 8.2 mg/dl (8.4-10.2); Carbon Dioxide 26 mmol/L (22.0-30.0); Chloride 103 mmol/L (98-107); Creatinine Clearance Estimated 73 mL/min (50-200); Estimated Glomerular Filt Rate 55 ml/min (>60); GFR (African American) 66 ML/MIN (>60); Globulin 2.7 g/dL (1.3-3.2); Glucose 123 mg/dl (74-100); Potassium 4.2 mmoL/L (3.5-5.1); Sodium 136 mmol/L (136-145); Total Protein,Serum 6.2 g/dl (6.3-8.2)
[2021-08-26 19:08] LABS: Basophils % 0.2 % (0.1-2.0); Lymphocytes # 0.6 K/mm3 (0.7-4.5); Lymphocytes % 8.7 % (10-50); Mean Corpuscular HGB Conc 28.2 g/dL (31.8-35.4); Mean Corpuscular Hemoglobin 18.7 pg (27.0-31.2); Mean Corpuscular Volume 66.6 fl (81-99); Mean Platelet Volume 7.9 fl (7.4-10.4); Monocytes # 0.3 K/mm3 (0.1-1.0); Monocytes % 3.9 % (1.7-9.3); Neutrophils # 6.2 K/mm3 (1.8-7.8); Neutrophils % 87.2 % (37.0-80.0); Platelet Count 268 K/mm3 (142-424); Red Blood Count 2.62 M/mm3 (4.20-5.40); White Blood Count 7.1 K/mm3 (4.8-10.8)
--- NOTE | 2021-08-26 19:12 | HMH.EDGENADL ---
ED Disposition Clinical Impression: COVID-19, COPD exacerbation Anemia Qualifiers: Anemia type: unspecified type Qualified Code(s): D64.9 - Anemia, unspecified Lung cancer Qualifiers: Laterality: unspecified laterality Lung location: unspecified part of lung Qualified Code(s): C34.90 - Malignant neoplasm of unspecified part of unspecified bronchus or lung Disposition: Admitted As Inpatient Condition on Discharge: Fair - Critical Care Critical Care Time: No Attestation: On 08/26/21, the high probability of a clinically significant, sudden or life threatening deterioration of the following system(s) required my full and direct attention, intervention and personal management. The time I documented below is in addition to time spent performing reported procedures but includes the following listed in this critical care notation. Medical Decision Making - Medical Records Medical records reviewed: Yes: I reviewed the patient's medical records. - Luan Inquiry Pt receiving controlled substance: No Vital Signs: 08/26/21 17:38 08/26/21 19:26 Temperature 98.4 F Temperature Source Oral Pulse Rate 87 Pulse Rate [Right Radial] 100 H Respiratory Rate 24 Blood Pressure [Right Arm] 157/57 H Blood Pressure Mean [Right Arm] 90 Blood Pressure Source [Right Arm] Automatic Cuff Blood Pressure Position [Right Arm] Sitting 02 Sat by Pulse Oximetry 86 L Oxygen Delivery Method Nasal Cannula Oxygen Flow Rate (LPM) 2 - Lab Data Lab results reviewed: Yes: I reviewed the patient's lab results. Lab Results 08/26/21 17:53: SARS-CoV-2 (PCR) Detected A, Influenza A Untype (PCR) Not detected, Influenza Type B (PCR) Not detected 08/26/21 18:20: WBC 7.1, RBC 2.62 L, Hgb 4.9 L*, Hct 17.4 L*, MCV 66.6 L, MCH 18.7 L, MCHC 28.2 L, RDW 20.0 H, Plt Count 268, MPV 7.9, Neut % (Auto) 87.2 H, Lymph % (Auto) 8.7 L, [place] % (Auto) 3.9, Eos % (Auto) 0.0 L, Baso % (Auto) 0.2, Neut # (Auto) 6.2, Lymph # (Auto) 0.6 L, [place] # (Auto) 0.3, Eos # (Auto) 0.0, Baso # (Auto) 0.0, Total Counted 100, Neutrophils % (Manual) 88 H, Band Neutrophils % 5.0, Lymphocytes % (Manual) 5 L, Monocytes % (Manual) 2, Platelet Estimate Normal, Hypochromasia 3+, Anisocytosis 3+, Microcytosis 3+, Rouleaux 3+ 08/26/21 18:20: Sodium 136, Potassium 4.2, Chloride 103, Carbon Dioxide 26, Anion Gap 11.2, BUN 30 H, Creatinine 1.00, Estimated Creat Clear 73, Estimated GFR 55 L, Est GFR ( Amer) 66, Glucose 123 H, Calcium 8.2 L, Total Bilirubin 0.4, AST 29, ALT 16, Alkaline Phosphatase 56, Total Protein 6.2 L, Albumin 3.5, Globulin 2.7, Albumin/Globulin Ratio 1.3 08/26/21 18:20: D-Dimer 0.50 08/26/21 18:20: Troponin I < 0.01 08/26/21 20:15: Blood Type A Positive, Antibody Screen Negative, Crossmatch (AHG) See Detail Result diagrams: 08/26/21 18:20 08/26/21 18:20 Orders (Tests/Meds): ED MEDICATIONS Generic Name Dose Route Start Last Admin Trade Name Freq PRN Reason Stop Dose Admin Sodium Chloride 250 mls @ 25 mls/hr 08/26/21 19:30 Sod Chlor 0.9% 250ml Bag IV 08/27/21 19:29 .Q10H MIKE Sodium Chloride 250 mls @ 25 mls/hr 08/26/21 21:45 Sod Chlor 0.9% 250ml Bag IV 08/27/21 21:44 .Q10H MIKE Discontinued Medications Generic Name Dose Route Start Last Admin Trade Name Freq PRN Reason Stop Dose Admin Albuterol/Ipratropium 6 ml 08/26/21 18:25 08/26/21 19:25 Ipratropium/Albuterol 3 Ml Neb IH 08/26/21 18:26 6 ml ONCE ONE Administration Dexamethasone Sodium Phosphate 10 mg 08/26/21 18:26 08/26/21 19:12 Dexamethasone 4mg/Ml 1ml Vial IV 08/26/21 18:27 10 mg ONCE ONE Administration Iopamidol 70 ml 08/26/21 20:24 08/26/21 20:25 Iopamidol-370 (76%);100ml Bottle IV 08/26/21 20:25 70 ml ONCE ONE Administration Sodium Chloride 40 ml 08/26/21 20:24 08/26/21 20:25 0.9 % Sodium Chloride 50 Ml Vial IV 08/26/21 20:25 40 ml ONCE ONE Administration Sodium Chloride 10 ml 08/26/21 20:24 08/26/21 20:25 Sodi
[2021-08-26 19:14] LABS: Hematocrit 17.4 % (37.0-47.0)
[2021-08-26 19:15] LABS: MANUAL DIFFERENTIAL MANUAL DIFFERENTIAL (MANUAL DIFF)
--- NOTE | 2021-08-26 19:19 | CT_ITS ---
PROCEDURE INFORMATION: Exam: CTA Chest With Contrast Exam date and time: 08/26/2021 7:19 PM Age: 70 years old Clinical indication: Dyspnea; Additional info: Dyspnea, hypoxia, known malignancy TECHNIQUE: Imaging protocol: Computed tomographic angiography of the chest with contrast. 3D rendering (Not supervised by radiologist): MIP and/or 3D reconstructed images were created by the technologist. Radiation optimization: All CT scans at this facility use at least one of these dose optimization techniques: automated exposure control; mA and/or kV adjustment per patient size (includes targeted exams where dose is matched to clinical indication); or iterative reconstruction. Contrast material: ISOVUE 370; Contrast volume: 70 ml; Contrast route: INTRAVENOUS (IV); COMPARISON: CT ANGIO CHEST 12/17/2019 1:05 PM FINDINGS: Pulmonary arteries: Normal. No pulmonary emboli. Aorta: Moderate atherosclerotic changes are seen within the thoracic aorta without evidence of aneurysm. Lungs: Known left apical lung mass with ill-defined margins, currently measuring 5.0 cm. Ill-defined airspace and ground-glass densities are seen throughout both lungs. Stable 1.1 cm left lower lobe nodule. Pleural spaces: Unremarkable. No pneumothorax. No pleural effusion. Heart: Small pericardial effusion. Moderate coronary artery calcification. Lymph nodes: Unremarkable. No enlarged lymph nodes. Bones/joints: Unremarkable. No acute fracture. Soft tissues: Unremarkable. IMPRESSION: 1. Bilateral pneumonia. 2. Known left upper lobe mass has enlarged compared to the prior exam. 3. Stable left lower lobe nodule. No follow-up is recommended. 4. Cardiomegaly and small pericardial effusion.
--- NOTE | 2021-08-26 19:20 | CT_ITS ---
PROCEDURE INFORMATION: Exam: CT Abdomen And Pelvis With Contrast Exam date and time: 08/26/2021 7:20 PM Age: 70 years old Clinical indication: Abdominal pain; Additional info: Abdominal pain, known malignancy TECHNIQUE: Imaging protocol: Computed tomography of the abdomen and pelvis with contrast. Radiation optimization: All CT scans at this facility use at least one of these dose optimization techniques: automated exposure control; mA and/or kV adjustment per patient size (includes targeted exams where dose is matched to clinical indication); or iterative reconstruction. Contrast material: ISOVUE; Contrast volume: 70 ml; Contrast route: IV; COMPARISON: CT ABDOMEN PELVIS WO CON 05/08/2021 12:32 PM FINDINGS: Liver: Normal. No mass. Gallbladder and bile ducts: Cholelithiasis. Pancreas: Normal. No ductal dilation. Spleen: Normal. No splenomegaly. Adrenal glands: Normal. No mass. Kidneys and ureters: Normal. No hydronephrosis. Stomach and bowel: Colonic diverticulosis. Appendix: No evidence of appendicitis. Intraperitoneal space: Unremarkable. No free air. No significant fluid collection. Vasculature: Moderate atherosclerotic changes are seen within the abdominal aorta and branch vasculature without evidence of aneurysm. Lymph nodes: Unremarkable. No enlarged lymph nodes. Urinary bladder: Unremarkable as visualized. Reproductive: Unremarkable as visualized. Bones/joints: Unremarkable. No acute fracture. Soft tissues: Small fat containing paraumbilical hernia. IMPRESSION: 1. Cholelithiasis. 2. Diverticulosis. 3. Small fat containing paraumbilical hernia. Please refer to accompanying chest CT report for additional information.
[2021-08-26 19:37] LABS: Anisocytosis 3+; Hypochromasia 3+; Lymphocytes % 5 % (10-50); Microcytosis 3+; Monocytes % 2 % (2-9); Neutrophils % 88 % (42-76); Platelet Estimate Normal; Rouleaux 3+; Total Cells Counted 100
[2021-08-26 19:45] LABS: Troponin I < 0.01 ng/ml (0.00-0.034)
[2021-08-26 19:49] LABS: Coronavirus 19, PCR Detected (NotDetected)
[2021-08-26 19:52] LABS: Hemoglobin 4.9 g/dL (12.2-16.2)
--- NOTE | 2021-08-26 21:34 | PC.NURSE ---
Dr. Nava speaking with Dr. Bunch
[2021-08-26 23:02] LABS: Troponin I < 0.01 ng/ml (0.00-0.034)
--- NOTE | 2021-08-26 23:14 | PC.NURSE ---
Report called to SLY Patel at this time
--- NOTE | 2021-08-26 23:29 | PC.NURSE ---
PT ARRIVED TO FLOOR VIA W/C FROM ED W/STAFF @1157
[2021-08-27] VITALS (30 sets, daily range): BP systolic 144–178; BP diastolic 60–86; PULSE 80–100; RESP 18–22; TEMP 36.7–37.2; O2SAT 3–95; BMI 33.7
[2021-08-27 01:36] LABS: Chloride 105 mmol/L (98-107); Potassium 4.3 mmoL/L (3.5-5.1); Sodium 135 mmol/L (136-145)
[2021-08-27 01:39] LABS: Alanine Aminotransferase 15 U/L (12-78); Albumin Level 3.2 g/dl (3.5-5.0); Albumin/Globulin Ratio 1.1 (1.1-1.8); Alkaline Phosphatase 60 U/L (38-126); Anion Gap 11.3 mEq/L (5-15); Aspartate Amino Transferase 26 U/L (14-36); Bilirubin,Total 0.4 mg/dl (0.2-1.3); Blood Urea Nitrogen 29 mg/dl (7-17); Carbon Dioxide 23 mmol/L (22.0-30.0); Creatinine Clearance Estimated 71 mL/min (50-200); Estimated Glomerular Filt Rate 55 ml/min (>60); GFR (African American) 66 ML/MIN (>60); Globulin 2.8 g/dL (1.3-3.2)
[2021-08-27 01:46] LABS: Glucose 162 mg/dl (74-100)
[2021-08-27 02:02] LABS: Troponin I < 0.01 ng/ml (0.00-0.034)
[2021-08-27 10:58] LABS: Hematocrit 27.1 % (37.0-47.0)
[2021-08-27 11:12] LABS: Hemoglobin 8.3 g/dL (12.2-16.2)
--- NOTE | 2021-08-27 12:25 | P.CONPHA_ITS ---
[facility] Pharmacy VTE Monitoring - Patient Demographics Admission date: 08/27/21 Report Date: 08/27/21 Time: 12:25 Allergies/Adverse Reactions: Patient Allergies fenofibrate [FENOFIBRATE] Allergy (Unknown, Verified 08/15/21 11:28) S-ANAPHYLAXIS oxaprozin [OXAPROZIN] Allergy (Unknown, Verified 08/15/21 11:28) S-ANAPHYLAXIS Height: 1.63 m Weight: 89.6 kg Patient Problems: Current Active Problems COPD exacerbation (Acute) COVID-19 (Acute) Anemia (Acute) Lung cancer (Chronic) - VTE Risk Labs: VTE Related Lab Results Hgb 8.3 g/dL (12.2-16.2) L D 08/27/21 10:50 Hct 27.1 % (37.0-47.0) L 08/27/21 10:50 Plt Count 268 K/mm3 (142-424) 08/26/21 18:20 BUN 29 mg/dl (7-17) H 08/27/21 01:15 Creatinine 1.00 mg/dl (0.52-1.04) 08/27/21 01:15 Estimated Creat Clear 71 mL/min (50-200) 08/27/21 01:15 Was VTE Risk Assessment Performed: Yes VTE Score: 6 VTE Risk Level: Moderate Risk - Prophylaxis Types of VTE Prophylaxis: Pharmacological Pharmacologic Type: Enoxaparin (LOVENOX ORDERED 60 MG DAILY.)
--- NOTE | 2021-08-27 13:03 | HMH.HP ---
*Admission Date: 08/27/21 *Chief complaint: dyspnea *History of present illness: Patient is a 70-year-old female, usually sees Laila Zarco in the office, is a diagnosis of lung cancer that is post XRT 2 years ago. Presented to the emergency room with increased dyspnea. Her work-up included imaging studies, chest x-ray showing a known left apical mass and infiltrative process consistent with pneumonia. She is COVID-positive. CTA of the chest was performed and is pending at the time of dictation. Of note was a markedly diminished hemoglobin at 4.9 which dictated transfusion. She is in the low eights today and feels significantly better. She relays that this is the second time she has become anemic and been transfused. She denies emesis, melanotic stool or hemoptysis. She is followed by the pulmonary service as an outpatient and was just seen there recently. She is unvaccinated. [facility] History Medical History: Reports:: Anxiety, Asthma, Cancer (lung), Chronic Obstructive Pulmonary Disease (COPD), Coronary Artery Disease, Depression, Hyperlipidemia, Hypertension Denies:: Diabetes Mellitus Type 1, Diabetes Mellitus Type 2, MRSA, Seizures *Have you ever received a pneumonia vaccine?: Yes *Have you received a flu vaccine this season?: Yes Other Medical History: Reports: Anemia, Radiation Therapy, Other. Denies: Blood Transfusion Reaction Laterality Cases: Bilateral: Carpal Tunnel Release Other Surgeries: Yes: No Previous Surgery, Cancer Surgery, Colonoscopy, EGD, Skin Cancer Excision, Tubal Ligation, Other Amputation: No Fractures: No - *Social History Smoking Status: Former smoker Alcohol Intake: current Alcohol Intake Frequency:: holidays/special occasions only Substance Use Type: denies use *Occupational Status:: disabled Housing: house Household Members: none *Travel in the last 8 weeks: None - Psychiatric History Pschychiatric History:: Reports:: Anxiety, Depression Family Hx:: Cancer, Diabetes, Heart Attack, Stroke Review of Systems - Constitutional Reports fatigue - Eyes Denies change in vision - ENT Denies abnormal hearing - *Cardiovascular Reports shortness of breath with activity - *Respiratory Reports chest congestion, Reports cough, Reports shortness of breath, Denies coughing up blood - *Gastrointestinal Denies abdominal pain, Denies coffee ground vomit, Denies bright, red blood in stools, Denies black, tarry stools - *Genitourinary Denies difficulty urinating - *Musculoskeletal Reports muscle weakness - Integumentary/Breasts Denies yellowing of the skin - *Neurologic Reports weakness, Denies abnormal speech, Denies behavioral changes, Denies confusion, Denies localized weakness, Denies numbness - Psychiatric Denies behavioral changes, Denies confusion - Endocrine Denies cold intolerance - Hematologic/Lymphatic Denies easy bleeding, Denies easy bruising - Allergic/Immunologic Denies hives Meds Home Medications Medication Instructions Recorded Confirmed Type aspirin 81 mg tablet,delayed 81 mg PO DAILY #90 tab 06/19/21 08/27/21 Rx release escitalopram oxalate 20 mg tablet 20 mg PO DAILY #90 tab 06/19/21 08/27/21 Rx albuterol sulfate 1.25 mg/3 mL 1.25 mg INHALATION Q6H PRN #270 ml 08/15/21 08/27/21 Rx solution for nebulization albuterol sulfate 90 mcg/actuation 1 inh INHALATION QID PRN 90 Days 08/15/21 08/27/21 Rx aerosol inhaler #8.5 g fluticasone fur. 100 mcg-umeclid 1 ea INHALATION DAILY 90 Days #60 08/15/21 08/27/21 Rx 62.5 mcg-vilant 25 mcg each inhalat.powder Hydrocod/Acet 5/325 mg [[place] 1 tab PO BIDP PRN 08/27/21 08/27/21 History 5/325mg tablet] Rosuvastatin Calcium 20 mg PO HS 08/27/21 08/27/21 History Trazodone HCl 50 mg PO HS 08/27/21 08/27/21 History Allergies Allergy/AdvReac Type Severity Reaction Status Date / Time fenofibrate [FENOFIBRATE] Allergy Unknown S-ANAPHYLAX Verified 08/15/21 11:28 IS oxaprozin [OXAPROZIN] Allergy Unknown S
--- NOTE | 2021-08-27 18:00 | PC.NURSE ---
3rd unit of blood given with no complications. VS stable and patient remained on 3LNC. Patient able to ambulate to bathroom and back to chair but gets SOB on exertion. Shower given per pt request, assist x1. No other changes noted.
[2021-08-28] VITALS (10 sets, daily range): BP systolic 164–179; BP diastolic 72–96; PULSE 78–96; RESP 19–26; TEMP 36.7–37.2; O2SAT 91–99; BMI 33.8
[2021-08-28 05:53] LABS: Alanine Aminotransferase 19 U/L (12-78); Albumin Level 3.4 g/dl (3.5-5.0); Albumin/Globulin Ratio 1.3 (1.1-1.8); Alkaline Phosphatase 56 U/L (38-126); Anion Gap 11.5 mEq/L (5-15); Aspartate Amino Transferase 36 U/L (14-36); Bilirubin,Total 0.5 mg/dl (0.2-1.3); Blood Urea Nitrogen 28 mg/dl (7-17); Calcium 8.3 mg/dl (8.4-10.2); Carbon Dioxide 23 mmol/L (22.0-30.0); Chloride 107 mmol/L (98-107); Creatinine Clearance Estimated 72 mL/min (50-200); Estimated Glomerular Filt Rate 71 ml/min (>60); GFR (African American) 85 ML/MIN (>60); Globulin 2.7 g/dL (1.3-3.2); Glucose 112 mg/dl (74-100); Potassium 4.5 mmoL/L (3.5-5.1); Sodium 137 mmol/L (136-145); Total Protein,Serum 6.1 g/dl (6.3-8.2)
--- NOTE | 2021-08-28 06:55 | PC.NURSE ---
No acute episodes during my shift. Maintaining O2 sat greater than 90% on 3 L NC. Sputum sample obtained and sent to lab. IV infusing per order. Pt has rested well during my shift. Pt is being monitored on tele and continuous pulse ox. No complaints or needs at this time. Call light in reach.
[2021-08-28 08:33] LABS: Basophils % 0.3 % (0.1-2.0); Hematocrit 27.3 % (37.0-47.0); Hemoglobin 8.2 g/dL (12.2-16.2); Lymphocytes # 0.6 K/mm3 (0.7-4.5); Lymphocytes % 6.8 % (10-50); Mean Corpuscular Hemoglobin 22.3 pg (27.0-31.2); Mean Corpuscular Volume 74.1 fl (81-99); Mean Platelet Volume 8.9 fl (7.4-10.4); Monocytes # 0.4 K/mm3 (0.1-1.0); Monocytes % 5.3 % (1.7-9.3); Neutrophils # 7.3 K/mm3 (1.8-7.8); Neutrophils % 87.5 % (37.0-80.0); Platelet Count 316 K/mm3 (142-424); Red Blood Count 3.68 M/mm3 (4.20-5.40); Red Cell Distribution Width 22.9 % (11.5-17.5); White Blood Count 8.3 K/mm3 (4.8-10.8)
[2021-08-28 08:40] LABS: MANUAL DIFFERENTIAL MANUAL DIFFERENTIAL (MANUAL DIFF)
[2021-08-28 08:56] LABS: Anisocytosis 2+; Hypochromasia 2+; Lymphocytes % 7 % (10-50); Microcytosis 1+; Monocytes % 2 % (2-9); Neutrophils % 91 % (42-76); Nucleated Red Blood Cells 1; Platelet Estimate Normal; Total Cells Counted 100
--- NOTE | 2021-08-28 09:36 | HMH.PULMCON ---
*Admission Date: 08/27/21 *Reason for consult:: Acute on chronic hypoxic respiratory failure, COVID-19 pneumonia *History of present illness: Ms. Kwan is a 70-year-old female prior smoker greater than [id number] smoking history history of lung cancer status post radiation following with [facility], following in pulmonary clinic for COPD, chronic risks hypoxic respiratory: Exertional dyspnea presented to the hospital and found to be COVID-19 positive [facility] History Medical History: Reports:: Anxiety, Asthma, Cancer (lung), Chronic Obstructive Pulmonary Disease (COPD), Coronary Artery Disease, Depression, Hyperlipidemia, Hypertension Denies:: Diabetes Mellitus Type 1, Diabetes Mellitus Type 2, MRSA, Seizures *Have you ever received a pneumonia vaccine?: Yes *Have you received a flu vaccine this season?: Yes Other Medical History: Reports: Anemia, Radiation Therapy, Other. Denies: Blood Transfusion Reaction Laterality Cases: Bilateral: Carpal Tunnel Release Other Surgeries: Yes: No Previous Surgery, Cancer Surgery, Colonoscopy, EGD, Skin Cancer Excision, Tubal Ligation, Other Amputation: No Fractures: No - *Social History Smoking Status: Former smoker Alcohol Intake: current Alcohol Intake Frequency:: holidays/special occasions only Substance Use Type: denies use *Occupational Status:: disabled Housing: house Household Members: none *Travel in the last 8 weeks: None - Psychiatric History Pschychiatric History:: Reports:: Anxiety, Depression Family Hx:: Cancer, Diabetes, Heart Attack, Stroke ROS - Cons Reports body ache(s), Reports chills - ENT Denies bleeding gums - Card Reports shortness of breath, Reports shortness of breath with activity - Resp Respiratory: Reports shortness of breath, Reports non-productive cough, Reports dyspnea, Reports dyspnea on exertion, Denies excessive phlegm production, Reports cough with sputum production - GI Gastrointestingal: Denies: abdominal pain - Psych Denies thoughts of hurting/killing others, Denies thoughts of hurting/killing yourself Meds Home Medications Medication Instructions Recorded Confirmed Type aspirin 81 mg tablet,delayed 81 mg PO DAILY #90 tab 06/19/21 08/27/21 Rx release escitalopram oxalate 20 mg tablet 20 mg PO DAILY #90 tab 06/19/21 08/27/21 Rx albuterol sulfate 1.25 mg/3 mL 1.25 mg INHALATION Q6H PRN #270 ml 08/15/21 08/27/21 Rx solution for nebulization albuterol sulfate 90 mcg/actuation 1 inh INHALATION QID PRN 90 Days 08/15/21 08/27/21 Rx aerosol inhaler #8.5 g fluticasone fur. 100 mcg-umeclid 1 ea INHALATION DAILY 90 Days #60 08/15/21 08/27/21 Rx 62.5 mcg-vilant 25 mcg each inhalat.powder Hydrocod/Acet 5/325 mg [[place] 1 tab PO BIDP PRN 08/27/21 08/27/21 History 5/325mg tablet] Rosuvastatin Calcium 20 mg PO HS 08/27/21 08/27/21 History Trazodone HCl 50 mg PO HS 08/27/21 08/27/21 History Allergies Allergy/AdvReac Type Severity Reaction Status Date / Time fenofibrate [FENOFIBRATE] Allergy Unknown S-ANAPHYLAX Verified 08/15/21 11:28 IS oxaprozin [OXAPROZIN] Allergy Unknown S-ANAPHYLAX Verified 08/15/21 11:28 IS Exam - Constitutional Constitutional:: Present: no acute distress, comfortable - HENMT Exam HENMT: Present: normocephalic, atraumatic - Eye Exam Eyes:: Present: normal appearance both eyes and related structures - Neck Exam Neck:: Present: normal visual inspection - Respiratory Exam Respiratory:: Present: able to speak in complete sentences, no respiratory distress, decreased breath sounds, wheezing - Cardiovascular Exam Cardiac:: Present: S1, S2 - GI Exam GI:: Present: soft - Skin Exam Skin: Present: warm, no rash - Neurological Exam Neurological: Present: alert, awake, normal cognition - Extremities Exam Extremities: Present: no cyanosis, no clubbing, edema Internal Medicine - CN: Reslt - Labs CBC & Chem 7: 08/28/21 06:31 08/28/21 05:31 Labs: Short CBC
--- NOTE | 2021-08-28 09:40 | HMH.ACPN2 ---
Internal Medicine - PN: Octavia *Date: 08/28/21 *Time: 09:00 Interval history: pt states doing better Exam Vital signs and Labs for Last 24 Hours: Temp Pulse Resp BP Pulse Ox 98.4 F 92 H 20 179/90 H 93 L 08/28/21 04:00 08/28/21 06:15 08/28/21 04:00 08/28/21 04:00 08/28/21 06:15 Laboratory Results - last 24 hr 08/26/21 20:15: Crossmatch (AHG) See Detail 08/27/21 10:50: Hgb 8.3 L D, Hct 27.1 L 08/28/21 05:31: Sodium 137, Potassium 4.5, Chloride 107, Carbon Dioxide 23, Anion Gap 11.5, BUN 28 H, Creatinine 0.80, Estimated Creat Clear 72, Estimated GFR 71, Est GFR ( Amer) 85 D, Glucose 112 H, Calcium 8.3 L, Total Bilirubin 0.5, AST 36 D, ALT 19 D, Alkaline Phosphatase 56, Total Protein 6.1 L, Albumin 3.4 L, Globulin 2.7, Albumin/Globulin Ratio 1.3 08/28/21 06:31: WBC 8.3, RBC 3.68 L D, Hgb 8.2 L, Hct 27.3 L, MCV 74.1 L, MCH 22.3 L, MCHC 30.0 L, RDW 22.9 H, Plt Count 316, MPV 8.9, Neut % (Auto) 87.5 H, Lymph % (Auto) 6.8 L, [place] % (Auto) 5.3, Eos % (Auto) 0.0 L, Baso % (Auto) 0.3, Neut # (Auto) 7.3, Lymph # (Auto) 0.6 L, [place] # (Auto) 0.4, Eos # (Auto) 0.0, Baso # (Auto) 0.0, Total Counted 100, Neutrophils % (Manual) 91 H, Lymphocytes % (Manual) 7 L, Monocytes % (Manual) 2, Nucleated RBCs 1, Platelet Estimate Normal, Hypochromasia 2+, Anisocytosis 2+, Microcytosis 1+ I & O for Last 24 hours: Intake & Output 08/25/21 08/26/21 08/27/21 08/28/21 11:59 11:59 11:59 11:59 Intake Total 1230 / 1230 1800 / 1800 Output Total 400 / 400 Balance 1230 / 1230 1400 / 1400 Weight 197 lb 8.547 oz 198 lb 3.129 oz Microbiology Reports for the Last 24 Hours: Microbiology 08/28/21 06:05 Sputum - Expectorated Sputum Gram Stain - Final - Constitutional no acute distress - *Routine HEENT Exam Head: Present: normocephalic Eye: Present: PERRL ENT: Present: mucous membranes moist - *Routine Neck Exam Present: supple. Absent: lymphadenopathy - *Routine Respiratory Exam Present: wheezes - *Routine Cardiovascular Exam Present: RRR - *Routine Abdominal Exam Present: soft, normoactive bowel sounds. Absent: tenderness - *Routine Extremities Exam Absent: cyanosis, clubbing, edema - *Routine Skin Exam Present: warm. Absent: rash - *Routine Neurological Exam Present: alert, oriented X3 Assessment and Plan (1) Anemia Status: Acute Qualifiers: Anemia type: unspecified type Qualified Code(s): D64.9 - Anemia, unspecified Category: Medical Code(s): D64.9 - Anemia, unspecified (2) COVID-19 Status: Acute Category: Medical Code(s): U07.1 - COVID-19 (3) Lung cancer Status: Chronic Qualifiers: Laterality: unspecified laterality Lung location: unspecified part of lung Qualified Code(s): C34.90 - Malignant neoplasm of unspecified part of unspecified bronchus or lung Category: Medical Code(s): C34.90 - Malignant neoplasm of unspecified part of unspecified bronchus or lung (4) Obesity (BMI 30-39.9) Status: Acute Category: Medical Code(s): E66.9 - Obesity, unspecified (5) Pulmonary infiltrate Status: Acute Category: Medical Code(s): R91.8 - Other nonspecific abnormal finding of lung field (6) Symptomatic anemia Status: Acute Category: Medical Code(s): D64.9 - Anemia, unspecified (7) Chronic obstructive lung disease Status: Chronic Qualifiers: COPD type: emphysema Emphysema type: unspecified Qualified Code(s): J43.9 - Emphysema, unspecified Category: Medical Code(s): J44.9 - Chronic obstructive pulmonary disease, unspecified (8) Dyspnea Status: Chronic Qualifiers: Dyspnea type: dyspnea on exertion Qualified Code(s): R06.00 - Dyspnea, unspecified Category: Medical Code(s): R06.00 - Dyspnea, unspecified - Assessment and plan all Dx Assessment and Plan for all problems:: rounded with dr verdugo all orders per dr verdugo add bryan ricardo
[2021-08-28 09:58] LABS: C-Reactive Protein 59.7 mg/L (0-4)
--- NOTE | 2021-08-28 18:50 | PC.NURSE ---
Pts BP elevated this shift. Spoke with Dr. Crespo and received order for hydralizine 25 mg po tid. CB in reach.
[2021-08-29] VITALS (9 sets, daily range): BP systolic 131–176; BP diastolic 54–78; PULSE 77–120; RESP 17–26; TEMP 36.7–37.1; O2SAT 92–100; BMI 33.8
[2021-08-29 06:15] LABS: Basophils % 0.2 % (0.1-2.0); Hematocrit 25.3 % (37.0-47.0); Hemoglobin 7.7 g/dL (12.2-16.2); Lymphocytes # 0.6 K/mm3 (0.7-4.5); Lymphocytes % 9.9 % (10-50); Mean Corpuscular HGB Conc 30.3 g/dL (31.8-35.4); Mean Corpuscular Hemoglobin 22.5 pg (27.0-31.2); Mean Corpuscular Volume 74.3 fl (81-99); Mean Platelet Volume 8.8 fl (7.4-10.4); Monocytes # 0.5 K/mm3 (0.1-1.0); Monocytes % 7.7 % (1.7-9.3); Neutrophils # 4.9 K/mm3 (1.8-7.8); Neutrophils % 82.2 % (37.0-80.0); Platelet Count 340 K/mm3 (142-424); Red Cell Distribution Width 22.9 % (11.5-17.5)
[2021-08-29 06:25] LABS: Alanine Aminotransferase 16 U/L (12-78); Albumin Level 3.1 g/dl (3.5-5.0); Albumin/Globulin Ratio 1.3 (1.1-1.8); Alkaline Phosphatase 53 U/L (38-126); Anion Gap 10.1 mEq/L (5-15); Aspartate Amino Transferase 26 U/L (14-36); Bilirubin,Total 0.3 mg/dl (0.2-1.3); Blood Urea Nitrogen 27 mg/dl (7-17); Calcium 8.2 mg/dl (8.4-10.2); Carbon Dioxide 29 mmol/L (22.0-30.0); Chloride 103 mmol/L (98-107); Creatinine Clearance Estimated 72 mL/min (50-200); Estimated Glomerular Filt Rate 62 ml/min (>60); GFR (African American) 74 ML/MIN (>60); Globulin 2.4 g/dL (1.3-3.2); Glucose 99 mg/dl (74-100); Potassium 4.1 mmoL/L (3.5-5.1); Sodium 138 mmol/L (136-145); Total Protein,Serum 5.5 g/dl (6.3-8.2)
--- NOTE | 2021-08-29 08:32 | HMH.ACPN2 ---
Internal Medicine - PN: Subj *Date: 08/29/21 *Time: 14:23 Interval history: 70-year-old female patient resting quietly in bed with eyes closed, awakens to verbal stimuli. Current oxygenation 94% on 4 L per nasal cannula. She denies any shortness of breath, chest pain or nausea during the night. Reminded to eat breakfast. Hemoglobin 7.7, she denies any visible blood Exam Vital signs and Labs for Last 24 Hours: Temp Pulse Resp BP Pulse Ox 98.2 F 84 17 148/78 H 98 08/29/21 00:00 08/29/21 05:48 08/29/21 00:00 08/29/21 00:00 08/29/21 05:48 Laboratory Results - last 24 hr 08/28/21 06:31: WBC 8.3, RBC 3.68 L D, Hgb 8.2 L, Hct 27.3 L, MCV 74.1 L, MCH 22.3 L, MCHC 30.0 L, RDW 22.9 H, Plt Count 316, MPV 8.9, Neut % (Auto) 87.5 H, Lymph % (Auto) 6.8 L, [place] % (Auto) 5.3, Eos % (Auto) 0.0 L, Baso % (Auto) 0.3, Neut # (Auto) 7.3, Lymph # (Auto) 0.6 L, [place] # (Auto) 0.4, Eos # (Auto) 0.0, Baso # (Auto) 0.0, Total Counted 100, Neutrophils % (Manual) 91 H, Lymphocytes % (Manual) 7 L, Monocytes % (Manual) 2, Nucleated RBCs 1, Platelet Estimate Normal, Hypochromasia 2+, Anisocytosis 2+, Microcytosis 1+ 08/28/21 06:31: C-Reactive Protein 59.7 H 08/29/21 05:45: WBC 6.0 D, RBC 3.40 L, Hgb 7.7 L, Hct 25.3 L, MCV 74.3 L, MCH 22.5 L, MCHC 30.3 L, RDW 22.9 H, Plt Count 340, MPV 8.8, Neut % (Auto) 82.2 H, Lymph % (Auto) 9.9 L, [place] % (Auto) 7.7, Eos % (Auto) 0.0 L, Baso % (Auto) 0.2, Neut # (Auto) 4.9, Lymph # (Auto) 0.6 L, [place] # (Auto) 0.5, Eos # (Auto) 0.0, Baso # (Auto) 0.0 08/29/21 05:45: Sodium 138, Potassium 4.1, Chloride 103, Carbon Dioxide 29, Anion Gap 10.1, BUN 27 H, Creatinine 0.90, Estimated Creat Clear 72, Estimated GFR 62, Est GFR ( Amer) 74, Glucose 99, Calcium 8.2 L, Total Bilirubin 0.3, AST 26 D, ALT 16, Alkaline Phosphatase 53, Total Protein 5.5 L, Albumin 3.1 L, Globulin 2.4, Albumin/Globulin Ratio 1.3 I & O for Last 24 hours: Intake & Output 08/26/21 08/27/21 08/28/21 08/29/21 23:59 23:59 23:59 23:59 Intake Total 0 / 0 1830 / 1830 1620 / 1620 Output Total 400 / 400 Balance 0 / 0 1830 / 1830 1220 / 1220 Weight 195 lb 4 oz 197 lb 8.547 oz 198 lb 3.129 oz 198 lb 3.129 oz Microbiology Reports for the Last 24 Hours: Microbiology 08/28/21 06:05 Sputum - Expectorated Sputum Gram Stain - Final - Constitutional no acute distress - *Routine HEENT Exam Head: Present: normocephalic Eye: Present: EOMI ENT: Present: mucous membranes moist - *Routine Neck Exam Present: supple, trachea midline. Absent: tracheal deviation - *Routine Respiratory Exam Present: CTA bilaterally. Absent: accessory muscle use - *Routine Cardiovascular Exam Present: RRR - *Routine Abdominal Exam Present: soft, normoactive bowel sounds. Absent: tenderness, firm - *Routine Extremities Exam Present: full ROM, pulses intact. Absent: cyanosis, clubbing, edema - *Routine Skin Exam Present: intact, dry. Absent: cyanosis, erythema - *Routine Neurological Exam Present: alert, oriented X3. Absent: motor deficit Assessment and Plan (1) Anemia Status: Acute Qualifiers: Anemia type: unspecified type Qualified Code(s): D64.9 - Anemia, unspecified Category: Medical Code(s): D64.9 - Anemia, unspecified (2) COVID-19 Status: Acute Category: Medical Code(s): U07.1 - COVID-19 (3) Lung cancer Status: Chronic Qualifiers: Laterality: unspecified laterality Lung location: unspecified part of lung Qualified Code(s): C34.90 - Malignant neoplasm of unspecified part of unspecified bronchus or lung Category: Medical Code(s): C34.90 - Malignant neoplasm of unspecified part of unspecified bronchus or lung (4) Obesity (BMI 30-39.9) Status: Acute Category: Medical Code(s): E66.9 - Obesity, unspecified (5) Pulmonary infiltrate Status: Acute Category: Medical Code(s): R91.8 - Other nonspecific abnormal finding of lung field (6) Symptomatic anemia Status: Acute
--- NOTE | 2021-08-29 09:25 | HMH.PULMPN ---
Internal Medicine - PN: Subj *Date: 08/29/21 *Time: 11:18 Interval history: No acute respiratory events overnight Exam - Constitutional Constitutional:: Present: no acute distress, comfortable - HENMT Exam HENMT: Present: normocephalic, atraumatic - Eye Exam Eyes:: Present: normal appearance both eyes and related structures - Neck Exam Neck:: Present: normal visual inspection - Respiratory Exam Respiratory:: Present: able to speak in complete sentences, no respiratory distress. Absent: crackles, wheezing - Cardiovascular Exam Cardiac:: Present: S1, S2 - GI Exam GI:: Present: soft - Skin Exam Skin: Present: warm, no rash - Neurological Exam Neurological: Present: alert, awake, normal cognition - Extremities Exam Extremities: Present: no cyanosis, no clubbing, edema Assessment and Plan (1) Anemia Status: Acute Qualifiers: Anemia type: unspecified type Qualified Code(s): D64.9 - Anemia, unspecified Category: Medical Code(s): D64.9 - Anemia, unspecified (2) COVID-19 Status: Acute Category: Medical Code(s): U07.1 - COVID-19 (3) Lung cancer Status: Chronic Qualifiers: Laterality: unspecified laterality Lung location: unspecified part of lung Qualified Code(s): C34.90 - Malignant neoplasm of unspecified part of unspecified bronchus or lung Category: Medical Code(s): C34.90 - Malignant neoplasm of unspecified part of unspecified bronchus or lung (4) Obesity (BMI 30-39.9) Status: Acute Category: Medical Code(s): E66.9 - Obesity, unspecified (5) Pulmonary infiltrate Status: Acute Category: Medical Code(s): R91.8 - Other nonspecific abnormal finding of lung field (6) Symptomatic anemia Status: Acute Category: Medical Code(s): D64.9 - Anemia, unspecified (7) Chronic obstructive lung disease Status: Chronic Qualifiers: COPD type: emphysema Emphysema type: unspecified Qualified Code(s): J43.9 - Emphysema, unspecified Category: Medical Code(s): J44.9 - Chronic obstructive pulmonary disease, unspecified (8) Dyspnea Status: Chronic Qualifiers: Dyspnea type: dyspnea on exertion Qualified Code(s): R06.00 - Dyspnea, unspecified Category: Medical Code(s): R06.00 - Dyspnea, unspecified - Assessment and plan all Dx Assessment and Plan for all problems:: #Acute on chronic hypoxic respiratory failure: #COVID-19 pneumonia: Prior smoker greater than [id number] smoking history, COPD. On triple inhaler therapy along with 2 L oxygen therapy with exertion. Profoundly anemic on presentation status post transfusion hemoglobin improved from 4.9 to 8.2 D-dimer 0.50. COVID-19 PCR positive. On ceftriaxone, azithromycin, remdesivir and dexamethasone. CTA imagings reviewed, bilateral patchy airspace disease, poor contrast timing. No evidence of pulmonary embolism. Interval update: WBC stable.Renal function stable. Received 40 mg of IV Lasix yesterday. Respiratory status improved, saturating 96% on 4 L nasal cannula, weaned to 2 to 3 L. Hemoglobin continued to drop. Primary team evaluating sources of anemia/blood loss. Plan: -Strict I's and O's avoid volume overload -Continue ceftriaxone azithromycinx 5 days for community-acquired pneumonia, can be weaned to levofloxacin on discharge. -Continue remdesivir and dexamethasone. We will hold off on initiating baricitinib. -DuoNebs every 4 hours along with budesonide every 12 scheduled Thank appointment pulmonary this patient care. We will continue to follow
[2021-08-29 17:09] LABS: Occult Blood,Stool Positive (Negative)
[2021-08-30] VITALS (13 sets, daily range): BP systolic 112–165; BP diastolic 50–82; PULSE 77–113; RESP 18–20; TEMP 36.8–37.6; O2SAT 91–97; BMI 32.9
[2021-08-30 06:51] LABS: Alanine Aminotransferase 17 U/L (12-78); Albumin Level 3.1 g/dl (3.5-5.0); Albumin/Globulin Ratio 1.3 (1.1-1.8); Alkaline Phosphatase 51 U/L (38-126); Anion Gap 5.1 mEq/L (5-15); Aspartate Amino Transferase 23 U/L (14-36); Bilirubin,Total 0.4 mg/dl (0.2-1.3); Blood Urea Nitrogen 24 mg/dl (7-17); Calcium 8.3 mg/dl (8.4-10.2); Carbon Dioxide 31 mmol/L (22.0-30.0); Chloride 104 mmol/L (98-107); Creatinine Clearance Estimated 70 mL/min (50-200); Estimated Glomerular Filt Rate 62 ml/min (>60); GFR (African American) 74 ML/MIN (>60); Globulin 2.4 g/dL (1.3-3.2); Glucose 108 mg/dl (74-100); Potassium 4.1 mmoL/L (3.5-5.1); Sodium 136 mmol/L (136-145); Total Protein,Serum 5.5 g/dl (6.3-8.2)
[2021-08-30 07:02] LABS: Basophils % 0.2 % (0.1-2.0); Hematocrit 24.7 % (37.0-47.0); Hemoglobin 7.5 g/dL (12.2-16.2); Lymphocytes # 0.6 K/mm3 (0.7-4.5); Lymphocytes % 12.9 % (10-50); Mean Corpuscular HGB Conc 30.3 g/dL (31.8-35.4); Mean Corpuscular Hemoglobin 22.4 pg (27.0-31.2); Mean Corpuscular Volume 73.9 fl (81-99); Mean Platelet Volume 8.3 fl (7.4-10.4); Monocytes # 0.4 K/mm3 (0.1-1.0); Monocytes % 8.2 % (1.7-9.3); Neutrophils # 3.7 K/mm3 (1.8-7.8); Neutrophils % 78.7 % (37.0-80.0); Platelet Count 377 K/mm3 (142-424); Red Blood Count 3.34 M/mm3 (4.20-5.40); Red Cell Distribution Width 22.5 % (11.5-17.5); White Blood Count 4.7 K/mm3 (4.8-10.8)
--- NOTE | 2021-08-30 10:07 | HMH.PULMPN ---
Internal Medicine - PN: Subj *Date: 08/30/21 *Time: 13:40 Interval history: No acute respiratory events overnight. Patient admits continued improvement. Exam - Constitutional Constitutional:: Present: no acute distress, comfortable - HENMT Exam HENMT: Present: normocephalic, atraumatic - Eye Exam Eyes:: Present: normal appearance both eyes and related structures - Neck Exam Neck:: Present: normal visual inspection - Respiratory Exam Respiratory:: Present: able to speak in complete sentences, no respiratory distress. Absent: wheezing - Cardiovascular Exam Cardiac:: Present: S1, S2 - GI Exam GI:: Present: soft - Skin Exam Skin: Present: warm, no rash - Neurological Exam Neurological: Present: alert, awake, normal cognition - Extremities Exam Extremities: Present: no cyanosis, no clubbing, edema Assessment and Plan (1) Anemia Status: Acute Qualifiers: Anemia type: unspecified type Qualified Code(s): D64.9 - Anemia, unspecified Category: Medical Code(s): D64.9 - Anemia, unspecified (2) COVID-19 Status: Acute Category: Medical Code(s): U07.1 - COVID-19 (3) Lung cancer Status: Chronic Qualifiers: Laterality: unspecified laterality Lung location: unspecified part of lung Qualified Code(s): C34.90 - Malignant neoplasm of unspecified part of unspecified bronchus or lung Category: Medical Code(s): C34.90 - Malignant neoplasm of unspecified part of unspecified bronchus or lung (4) Obesity (BMI 30-39.9) Status: Acute Category: Medical Code(s): E66.9 - Obesity, unspecified (5) Pulmonary infiltrate Status: Acute Category: Medical Code(s): R91.8 - Other nonspecific abnormal finding of lung field (6) Symptomatic anemia Status: Acute Category: Medical Code(s): D64.9 - Anemia, unspecified (7) Chronic obstructive lung disease Status: Chronic Qualifiers: COPD type: emphysema Emphysema type: unspecified Qualified Code(s): J43.9 - Emphysema, unspecified Category: Medical Code(s): J44.9 - Chronic obstructive pulmonary disease, unspecified (8) Dyspnea Status: Chronic Qualifiers: Dyspnea type: dyspnea on exertion Qualified Code(s): R06.00 - Dyspnea, unspecified Category: Medical Code(s): R06.00 - Dyspnea, unspecified - Assessment and plan all Dx Assessment and Plan for all problems:: #Acute on chronic hypoxic respiratory failure: #COVID-19 pneumonia: Prior smoker greater than [id number] smoking history, COPD. On triple inhaler therapy along with 2 L oxygen therapy with exertion. Profoundly anemic on presentation status post transfusion hemoglobin improved from 4.9 to 8.2 D-dimer 0.50. COVID-19 PCR positive. On ceftriaxone, azithromycin, remdesivir and dexamethasone. CTA imagings reviewed, bilateral patchy airspace disease, poor contrast timing. No evidence of pulmonary embolism. Interval update: Renal function stable. Admits continued improvement in her respiratory status, back to her baseline. Primary team evaluating sources of anemia/blood loss. Plan: -Strict I's and O's avoid volume overload. Lasix 40 mg IV once today -Continue ceftriaxone azithromycinx 5 days for community-acquired pneumonia, can be weaned to levofloxacin on discharge to complete a 5-day course. -Continue remdesivir up until discharge and dexamethasone x 10 days. -DuoNebs every 4 hours along with budesonide every 12 scheduled, can be changed to home inhaler therapy upon discharge. Thank appointment pulmonary this patient care. Follow the patient in pulmonary clinic in 4 weeks.
--- NOTE | 2021-08-30 10:38 | HMH.ACPN2 ---
Internal Medicine - PN: Subj *Date: 08/30/21 *Time: 09:10 Interval history: pt states coughing and increase in soa Exam Vital signs and Labs for Last 24 Hours: Temp Pulse Resp BP Pulse Ox 98.7 F 86 20 164/68 H 93 L 08/30/21 08:00 08/30/21 09:32 08/30/21 08:00 08/30/21 08:00 08/30/21 09:32 Laboratory Results - last 24 hr 08/29/21 16:53: Stool Occult Blood Positive A 08/30/21 05:57: WBC 4.7 L, RBC 3.34 L, Hgb 7.5 L, Hct 24.7 L, MCV 73.9 L, MCH 22.4 L, MCHC 30.3 L, RDW 22.5 H, Plt Count 377, MPV 8.3, Neut % (Auto) 78.7, Lymph % (Auto) 12.9, [place] % (Auto) 8.2, Eos % (Auto) 0.0 L, Baso % (Auto) 0.2, Neut # (Auto) 3.7, Lymph # (Auto) 0.6 L, [place] # (Auto) 0.4, Eos # (Auto) 0.0, Baso # (Auto) 0.0 08/30/21 05:57: Sodium 136, Potassium 4.1, Chloride 104, Carbon Dioxide 31 H, Anion Gap 5.1, BUN 24 H, Creatinine 0.90, Estimated Creat Clear 70, Estimated GFR 62, Est GFR ( Amer) 74, Glucose 108 H, Calcium 8.3 L, Total Bilirubin 0.4, AST 23, ALT 17, Alkaline Phosphatase 51, Total Protein 5.5 L, Albumin 3.1 L, Globulin 2.4, Albumin/Globulin Ratio 1.3 I & O for Last 24 hours: Intake & Output 08/27/21 08/28/21 08/29/21 08/30/21 11:59 11:59 11:59 11:59 Intake Total 1230 / 1230 1920 / 1920 540 / 540 720 / 720 Output Total 400 / 400 Balance 1230 / 1230 1520 / 1520 540 / 540 720 / 720 Weight 197 lb 8.547 oz 198 lb 3.129 oz 198 lb 3.129 oz 192 lb 14.4 oz Microbiology Reports for the Last 24 Hours: Microbiology 08/28/21 06:05 Sputum - Expectorated Sputum Gram Stain - Final 08/28/21 06:05 Sputum - Expectorated Sputum Sputum Culture - Final Normal Respiratory Mehreen - Constitutional no acute distress - *Routine HEENT Exam Head: Present: normocephalic Eye: Present: PERRL ENT: Present: mucous membranes moist - *Routine Neck Exam Present: supple. Absent: lymphadenopathy - *Routine Respiratory Exam Present: wheezes - *Routine Cardiovascular Exam Present: RRR - *Routine Abdominal Exam Present: soft, normoactive bowel sounds. Absent: tenderness - *Routine Extremities Exam Absent: cyanosis, clubbing, edema - *Routine Skin Exam Present: warm. Absent: rash - *Routine Neurological Exam Present: alert, oriented X3 Assessment and Plan (1) Anemia Status: Acute Qualifiers: Anemia type: unspecified type Qualified Code(s): D64.9 - Anemia, unspecified Category: Medical Code(s): D64.9 - Anemia, unspecified (2) COVID-19 Status: Acute Category: Medical Code(s): U07.1 - COVID-19 (3) Lung cancer Status: Chronic Qualifiers: Laterality: unspecified laterality Lung location: unspecified part of lung Qualified Code(s): C34.90 - Malignant neoplasm of unspecified part of unspecified bronchus or lung Category: Medical Code(s): C34.90 - Malignant neoplasm of unspecified part of unspecified bronchus or lung (4) Obesity (BMI 30-39.9) Status: Acute Category: Medical Code(s): E66.9 - Obesity, unspecified (5) Pulmonary infiltrate Status: Acute Category: Medical Code(s): R91.8 - Other nonspecific abnormal finding of lung field (6) Symptomatic anemia Status: Acute Category: Medical Code(s): D64.9 - Anemia, unspecified (7) Chronic obstructive lung disease Status: Chronic Qualifiers: COPD type: emphysema Emphysema type: unspecified Qualified Code(s): J43.9 - Emphysema, unspecified Category: Medical Code(s): J44.9 - Chronic obstructive pulmonary disease, unspecified (8) Dyspnea Status: Chronic Qualifiers: Dyspnea type: dyspnea on exertion Qualified Code(s): R06.00 - Dyspnea, unspecified Category: Medical Code(s): R06.00 - Dyspnea, unspecified - Assessment and plan all Dx Assessment and Plan for all problems:: rounded with dr dunn all orders per dr lam pulm consult
--- NOTE | 2021-08-30 10:56 | PC.NURSE ---
education on i/s and its use for tx of PNA given to patient. Patient gave return demonstration
--- NOTE | 2021-08-30 11:25 | P.PN_ITS ---
Internal Medicine - PN: Subj *Date: 08/30/21 *Time: 11:25 Exam Vital signs and Labs for Last 24 Hours: Temp Pulse Resp BP Pulse Ox 98.7 F 86 20 164/68 H 93 L 08/30/21 08:00 08/30/21 09:32 08/30/21 08:00 08/30/21 08:00 08/30/21 09:32 Laboratory Results - last 24 hr 08/29/21 16:53: Stool Occult Blood Positive A 08/30/21 05:57: WBC 4.7 L, RBC 3.34 L, Hgb 7.5 L, Hct 24.7 L, MCV 73.9 L, MCH 22.4 L, MCHC 30.3 L, RDW 22.5 H, Plt Count 377, MPV 8.3, Neut % (Auto) 78.7, Lymph % (Auto) 12.9, [place] % (Auto) 8.2, Eos % (Auto) 0.0 L, Baso % (Auto) 0.2, Neut # (Auto) 3.7, Lymph # (Auto) 0.6 L, [place] # (Auto) 0.4, Eos # (Auto) 0.0, Baso # (Auto) 0.0 08/30/21 05:57: Sodium 136, Potassium 4.1, Chloride 104, Carbon Dioxide 31 H, Anion Gap 5.1, BUN 24 H, Creatinine 0.90, Estimated Creat Clear 70, Estimated GFR 62, Est GFR ( Amer) 74, Glucose 108 H, Calcium 8.3 L, Total Bilirubin 0.4, AST 23, ALT 17, Alkaline Phosphatase 51, Total Protein 5.5 L, Albumin 3.1 L , Globulin 2.4, Albumin/Globulin Ratio 1.3 I & O for Last 24 hours: Intake & Output 08/27/21 08/28/21 08/29/21 08/30/21 23:59 23:59 23:59 23:59 Intake Total 1830 / 1830 1620 / 1620 720 / 720 480 / 480 Output Total 400 / 400 Balance 1830 / 1830 1220 / 1220 720 / 720 480 / 480 Weight 89.6 kg 89.9 kg 89.9 kg 87.498 kg Microbiology Reports for the Last 24 Hours: Microbiology 08/28/21 06:05 Sputum - Expectorated Sputum Gram Stain - Final 08/28/21 06:05 Sputum - Expectorated Sputum Sputum Culture - Final Normal Respiratory Mehreen Assessment and Plan (1) Anemia Status: Acute Qualifiers: Anemia type: unspecified type Qualified Code(s): D64.9 - Anemia, unspecified Category: Medical Code(s): D64.9 - Anemia, unspecified (2) COVID-19 Status: Acute Category: Medical Code(s): U07.1 - COVID-19 (3) Lung cancer Status: Chronic Qualifiers: Laterality: unspecified laterality Lung location: unspecified part of lung Qualified Code(s): C34.90 - Malignant neoplasm of unspecified part of unspecified bronchus or lung Category: Medical Code(s): C34.90 - Malignant neoplasm of unspecified part of unspecified bronchus or lung (4) Obesity (BMI 30-39.9) Status: Acute Category: Medical Code(s): E66.9 - Obesity, unspecified (5) Pulmonary infiltrate Status: Acute Category: Medical Code(s): R91.8 - Other nonspecific abnormal finding of lung field (6) Symptomatic anemia Status: Acute Category: Medical Code(s): D64.9 - Anemia, unspecified (7) Chronic obstructive lung disease Status: Chronic Qualifiers: COPD type: emphysema Emphysema type: unspecified Qualified Code(s): J43.9 - Emphysema, unspecified Category: Medical Code(s): J44.9 - Chronic obstructive pulmonary disease, unspecified (8) Dyspnea Status: Chronic Qualifiers: Dyspnea type: dyspnea on exertion Qualified Code(s): R06.00 - Dyspnea, unspecified Category: Medical Code(s): R06.00 - Dyspnea, unspecified The patient's infection will respond to the chosen ABx?: Yes Is the patient receiving the right drug, dose, and route?: Yes Could a more targeted ABx be ordered?: No
[2021-08-31] VITALS (15 sets, daily range): BP systolic 134–171; BP diastolic 57–84; PULSE 60–93; RESP 16–24; TEMP 36.6–37; O2SAT 3–98; BMI 32.9
[2021-08-31 06:34] LABS: Basophils % 0.1 % (0.1-2.0); Hematocrit 25.2 % (37.0-47.0); Hemoglobin 7.6 g/dL (12.2-16.2); Lymphocytes # 0.7 K/mm3 (0.7-4.5); Lymphocytes % 15.1 % (10-50); Mean Corpuscular HGB Conc 30.3 g/dL (31.8-35.4); Mean Corpuscular Hemoglobin 22.1 pg (27.0-31.2); Mean Corpuscular Volume 72.9 fl (81-99); Mean Platelet Volume 7.6 fl (7.4-10.4); Monocytes # 0.4 K/mm3 (0.1-1.0); Monocytes % 7.8 % (1.7-9.3); Neutrophils # 3.5 K/mm3 (1.8-7.8); Platelet Count 384 K/mm3 (142-424); Red Blood Count 3.45 M/mm3 (4.20-5.40); Red Cell Distribution Width 22.7 % (11.5-17.5); White Blood Count 4.5 K/mm3 (4.8-10.8)
[2021-08-31 06:57] LABS: Alanine Aminotransferase 20 U/L (12-78); Albumin Level 3.1 g/dl (3.5-5.0); Albumin/Globulin Ratio 1.3 (1.1-1.8); Alkaline Phosphatase 52 U/L (38-126); Aspartate Amino Transferase 24 U/L (14-36); Bilirubin,Total 0.5 mg/dl (0.2-1.3); Blood Urea Nitrogen 28 mg/dl (7-17); Calcium 8.3 mg/dl (8.4-10.2); Carbon Dioxide 34 mmol/L (22.0-30.0); Chloride 100 mmol/L (98-107); Creatinine Clearance Estimated 70 mL/min (50-200); Estimated Glomerular Filt Rate 62 ml/min (>60); GFR (African American) 74 ML/MIN (>60); Globulin 2.3 g/dL (1.3-3.2); Glucose 99 mg/dl (74-100); Sodium 137 mmol/L (136-145); Total Protein,Serum 5.4 g/dl (6.3-8.2)
--- NOTE | 2021-08-31 09:29 | HMH.PULMPN ---
Internal Medicine - PN: Subj *Date: 08/31/21 *Time: 11:35 Interval history: No acute respiratory vents overnight. Patient admits stable respiratory symptoms. Exam - Constitutional Constitutional:: Present: no acute distress, comfortable - HENMT Exam HENMT: Present: normocephalic, atraumatic - Eye Exam Eyes:: Present: normal appearance both eyes and related structures - Neck Exam Neck:: Present: normal visual inspection - Respiratory Exam Respiratory:: Present: able to speak in complete sentences, no respiratory distress. Absent: wheezing - Cardiovascular Exam Cardiac:: Present: S1, S2 - GI Exam GI:: Present: soft, no hepatosplenomegaly - Skin Exam Skin: Present: warm, no rash - Neurological Exam Neurological: Present: alert, awake, normal cognition - Extremities Exam Extremities: Present: no cyanosis, no clubbing, edema - Psychiatric Exam Psychiatric: Present: normal affect Assessment and Plan (1) Anemia Status: Acute Qualifiers: Anemia type: unspecified type Qualified Code(s): D64.9 - Anemia, unspecified Category: Medical Code(s): D64.9 - Anemia, unspecified (2) COVID-19 Status: Acute Category: Medical Code(s): U07.1 - COVID-19 (3) Lung cancer Status: Chronic Qualifiers: Laterality: unspecified laterality Lung location: unspecified part of lung Qualified Code(s): C34.90 - Malignant neoplasm of unspecified part of unspecified bronchus or lung Category: Medical Code(s): C34.90 - Malignant neoplasm of unspecified part of unspecified bronchus or lung (4) Obesity (BMI 30-39.9) Status: Acute Category: Medical Code(s): E66.9 - Obesity, unspecified (5) Pulmonary infiltrate Status: Acute Category: Medical Code(s): R91.8 - Other nonspecific abnormal finding of lung field (6) Symptomatic anemia Status: Acute Category: Medical Code(s): D64.9 - Anemia, unspecified (7) Chronic obstructive lung disease Status: Chronic Qualifiers: COPD type: emphysema Emphysema type: unspecified Qualified Code(s): J43.9 - Emphysema, unspecified Category: Medical Code(s): J44.9 - Chronic obstructive pulmonary disease, unspecified (8) Dyspnea Status: Chronic Qualifiers: Dyspnea type: dyspnea on exertion Qualified Code(s): R06.00 - Dyspnea, unspecified Category: Medical Code(s): R06.00 - Dyspnea, unspecified - Assessment and plan all Dx Assessment and Plan for all problems:: #Acute on chronic hypoxic respiratory failure: #COVID-19 pneumonia: Prior smoker greater than [id number] smoking history, COPD. On triple inhaler therapy along with 2 L oxygen therapy with exertion. Profoundly anemic on presentation status post transfusion hemoglobin improved from 4.9 to 8.2 D-dimer 0.50. COVID-19 PCR positive. Initiated on admission On ceftriaxone, azithromycin, remdesivir and dexamethasone. CTA imagings reviewed, bilateral patchy airspace disease, poor contrast timing. No evidence of pulmonary embolism. Interval update: Renal function stable. Admits continued improvement in her respiratory status, back to her baseline on 2 to 3 L nasal cannula. Received IV diuresis twice on this admission. Volume status improved. Primary team evaluating sources of anemia/blood loss. Plan: -Continue ceftriaxone azithromycinx 5 days for community-acquired pneumonia, can be weaned to levofloxacin on discharge to complete a 5-day course. -Continue remdesivir up until discharge and dexamethasone x 10 days. -Continue Trelegy-100 inhaler daily and Duo nebs PATIENCE Chambersadrianne for allowing pulmonary this patient care. Will follow the patient in pulmonary clinic in 4 weeks.
--- NOTE | 2021-08-31 09:40 | HMH.ACPN2 ---
Internal Medicine - PN: Subj *Date: 08/31/21 *Time: 20:18 Interval history: 70-year-old female patient sitting up in bed resting quietly she denies any shortness of breath or chest pain during the night. Current oxygenation 94% on 4 L per nasal cannula. H&H is stable, her occult blood was positive we will consult general surgery. Exam Vital signs and Labs for Last 24 Hours: Temp Pulse Resp BP Pulse Ox 97.8 F 80 24 147/57 H 93 L 08/31/21 08:00 08/31/21 08:00 08/31/21 08:00 08/31/21 08:00 08/31/21 08:00 Laboratory Results - last 24 hr 08/31/21 05:51: WBC 4.5 L, RBC 3.45 L, Hgb 7.6 L, Hct 25.2 L, MCV 72.9 L, MCH 22.1 L, MCHC 30.3 L, RDW 22.7 H, Plt Count 384, MPV 7.6, Neut % (Auto) 77.0, Lymph % (Auto) 15.1, [place] % (Auto) 7.8, Eos % (Auto) 0.0 L, Baso % (Auto) 0.1, Neut # (Auto) 3.5, Lymph # (Auto) 0.7, [place] # (Auto) 0.4, Eos # (Auto) 0.0, Baso # (Auto) 0.0 08/31/21 05:51: Sodium 137, Potassium 4.0, Chloride 100, Carbon Dioxide 34 H, Anion Gap 7.0, BUN 28 H, Creatinine 0.90, Estimated Creat Clear 70, Estimated GFR 62, Est GFR ( Amer) 74, Glucose 99, Calcium 8.3 L, Total Bilirubin 0.5, AST 24, ALT 20, Alkaline Phosphatase 52, Total Protein 5.4 L, Albumin 3.1 L, Globulin 2.3, Albumin/Globulin Ratio 1.3 I & O for Last 24 hours: Intake & Output 08/28/21 08/29/21 08/30/21 08/31/21 23:59 23:59 23:59 23:59 Intake Total 1620 / 1620 720 / 720 1080 / 1080 Output Total 400 / 400 Balance 1220 / 1220 720 / 720 1080 / 1080 Weight 198 lb 3.129 oz 198 lb 3.129 oz 192 lb 14.4 oz 192 lb 14.401 oz Microbiology Reports for the Last 24 Hours: Microbiology 08/28/21 06:05 Sputum - Expectorated Sputum Gram Stain - Final 08/28/21 06:05 Sputum - Expectorated Sputum Sputum Culture - Final Normal Respiratory Mehreen - Constitutional no acute distress - *Routine HEENT Exam Head: Present: normocephalic Eye: Present: EOMI ENT: Present: mucous membranes moist - *Routine Neck Exam Present: supple, trachea midline. Absent: tracheal deviation - *Routine Respiratory Exam Present: CTA bilaterally. Absent: accessory muscle use - *Routine Cardiovascular Exam Present: RRR - *Routine Abdominal Exam Present: soft, normoactive bowel sounds. Absent: tenderness, firm - *Routine Extremities Exam Present: full ROM, pulses intact. Absent: cyanosis, clubbing - *Routine Skin Exam Present: intact, dry. Absent: cyanosis, erythema - *Routine Neurological Exam Present: alert, oriented X3. Absent: motor deficit - Routine Psychiatric Exam Present: normal affect, normal thought process. Absent: auditory hallucinations Assessment and Plan (1) Anemia Status: Acute Qualifiers: Anemia type: unspecified type Qualified Code(s): D64.9 - Anemia, unspecified Category: Medical Code(s): D64.9 - Anemia, unspecified (2) COVID-19 Status: Acute Category: Medical Code(s): U07.1 - COVID-19 (3) Lung cancer Status: Chronic Qualifiers: Laterality: unspecified laterality Lung location: unspecified part of lung Qualified Code(s): C34.90 - Malignant neoplasm of unspecified part of unspecified bronchus or lung Category: Medical Code(s): C34.90 - Malignant neoplasm of unspecified part of unspecified bronchus or lung (4) Obesity (BMI 30-39.9) Status: Acute Category: Medical Code(s): E66.9 - Obesity, unspecified (5) Pulmonary infiltrate Status: Acute Category: Medical Code(s): R91.8 - Other nonspecific abnormal finding of lung field (6) Symptomatic anemia Status: Acute Category: Medical Code(s): D64.9 - Anemia, unspecified (7) Chronic obstructive lung disease Status: Chronic Qualifiers: COPD type: emphysema Emphysema type: unspecified Qualified Code(s): J43.9 - Emphysema, unspecified Category: Medical Code(s): J44.9 - Chronic obstructive pulmonary disease, unspecified (8) Dyspnea Status: Chronic Qualifi
--- NOTE | 2021-08-31 12:23 | HMH.GSCON ---
*Admission Date: 08/27/21 *Reason for consult:: Anemia; heme positive stool *History of present illness: This is a 70-year-old female seen in consultation from the primary service for evaluation regarding anemia and heme positive stool. She is currently being treated for COVID-associated pneumonia. Fairly severe anemia noted upon initial presentation. Heme positive stool also confirmed. She has had an excellent response to transfusion and her hemoglobin has remained stable over the past few days. No report of melena, hematemesis, or bright red blood per rectum. She states that she is overdue for colonoscopy . She believes that she had an esophagogastroduodenoscopy quite a long time ago . Forwarded from pulmonology consultation: Ms. Kwan is a 70-year-old female prior smoker greater than [id number] smoking history history of lung cancer status post radiation following with [facility], following in pulmonary clinic for COPD, chronic risks hypoxic respiratory: Exertional dyspnea presented to the hospital and found to be COVID-19 positive Review of Systems - Constitutional Denies chills - *Gastrointestinal Denies vomiting blood, Denies bright, red blood in stools, Denies black, tarry stools, Denies nausea - *Neurologic Reports weakness, Denies abnormal hearing, Denies abnormal speech, Denies behavioral changes, Denies confusion, Denies localized weakness, Denies numbness [facility] History Medical History: Reports:: Anxiety, Asthma, Cancer (lung), Chronic Obstructive Pulmonary Disease (COPD), Coronary Artery Disease, Depression, Hyperlipidemia, Hypertension Denies:: Diabetes Mellitus Type 1, Diabetes Mellitus Type 2, MRSA, Seizures *Have you ever received a pneumonia vaccine?: Yes *Have you received a flu vaccine this season?: Yes Other Medical History: Reports: Anemia, Radiation Therapy, Other. Denies: Blood Transfusion Reaction Laterality Cases: Bilateral: Carpal Tunnel Release Other Surgeries: Yes: No Previous Surgery, Cancer Surgery, Colonoscopy, EGD, Skin Cancer Excision, Tubal Ligation, Other Amputation: No Fractures: No - *Social History Smoking Status: Former smoker Alcohol Intake: current Alcohol Intake Frequency:: holidays/special occasions only Substance Use Type: denies use *Occupational Status:: disabled Housing: house Household Members: none *Travel in the last 8 weeks: None - Psychiatric History Pschychiatric History:: Reports:: Anxiety, Depression Family Hx:: Cancer, Diabetes, Heart Attack, Stroke Meds Home Medications Medication Instructions Recorded Confirmed Type aspirin 81 mg tablet,delayed 81 mg PO DAILY #90 tab 06/19/21 08/27/21 Rx release escitalopram oxalate 20 mg tablet 20 mg PO DAILY #90 tab 06/19/21 08/27/21 Rx albuterol sulfate 1.25 mg/3 mL 1.25 mg INHALATION Q6H PRN #270 ml 08/15/21 08/27/21 Rx solution for nebulization albuterol sulfate 90 mcg/actuation 1 inh INHALATION QID PRN 90 Days 08/15/21 08/27/21 Rx aerosol inhaler #8.5 g fluticasone fur. 100 mcg-umeclid 1 ea INHALATION DAILY 90 Days #60 08/15/21 08/27/21 Rx 62.5 mcg-vilant 25 mcg each inhalat.powder Hydrocod/Acet 5/325 mg [[place] 1 tab PO BIDP PRN 08/27/21 08/27/21 History 5/325mg tablet] Rosuvastatin Calcium 20 mg PO HS 08/27/21 08/27/21 History Trazodone HCl 50 mg PO HS 08/27/21 08/27/21 History Allergies Allergy/AdvReac Type Severity Reaction Status Date / Time fenofibrate [FENOFIBRATE] Allergy Unknown S-ANAPHYLAX Verified 08/15/21 11:28 IS oxaprozin [OXAPROZIN] Allergy Unknown S-ANAPHYLAX Verified 08/15/21 11:28 IS Exam Vital signs and Labs for Last 24 Hours: Temp Pulse Resp BP Pulse Ox 97.8 F 80 24 147/57 H 3 L 08/31/21 08:00 08/31/21 08:00 08/31/21 08:00 08/31/21 08:00 08/31/21 08:00 Laboratory Results - last 24 hr 08/31/21 05:51: WBC 4.5 L, RBC 3.45 L, Hgb 7.6 L, Hct 25.2 L, MCV 72.9 L, MCH 22.1 L, MCHC 30.3 L, RDW 22.7 H, Plt Count 384, MPV 7.6, Neut % (
--- NOTE | 2021-08-31 15:30 | ECG_ITS ---
APPROVED REPORT Exam: Resting ECG HR:83 bpm ECG Measurements Heart Rate 83 AXES VT 127 P 72 QRSd 89 QRS 82 QT 370 T 76 QTc 410 Conclusion SINUS RHYTHM NORMAL ECG UNCONFIRMED REPORT Electronically signed by : Papa Florez MD 08/31/2021 21:11:38
--- NOTE | 2021-08-31 23:53 | PC.NURSE ---
Preblood vital signs timed at 2318.
[2021-09-01] VITALS (18 sets, daily range): BP systolic 139–169; BP diastolic 57–92; PULSE 67–85; RESP 15–18; TEMP 36.6–37.2; O2SAT 93–96; BMI 32.9
--- NOTE | 2021-09-01 00:45 | PC.NURSE ---
2310 - both IV's painful when flushing. Removed #22g from right hand, and #20g from left ac. Started new IV - #20g to left hand, patent, good blood return, and flushes well with no pain reported. 2320 - 1st unit of blood started at this time at 75ml/hr 2350 - increased blood infusion to 100ml/hr, patient tolerating well. 0030 - increased blood infusion to 150ml/hr, patient tolerating well.
--- NOTE | 2021-09-01 03:31 | PC.NURSE ---
IV Lasix to be given prior to 2nd unit of blood being started.
--- NOTE | 2021-09-01 03:45 | PC.NURSE ---
Pt has rested off and on this shift. No complaints t/o the shift. Denies soa or cp. Pt up to bsc/bathroom with walker and assistance. Pt on 3-4L NC this shift with oxygen saturations ranging from 93-97%. Pt received 1 unit of prbc's and has tolerated well. Received benadryl and tylenol per mar prior to blood administration. Pt also receiving lasix prior to 2nd unit. 2 new IV sites this shift. VSS. No acute changes complaints. Will continue to monitor. Remains in Airborne/Contact Isolation
--- NOTE | 2021-09-01 06:45 | HMH.GSPN ---
Subjective Narrative: The patient is currently resting. Per nursing staff she had an okay night . Progress Note: A&P (1) Anemia Status: Acute Assessment and plan: Follow-up a.m. labs Transfuse as needed Outpatient EGD/colonoscopy scheduled (currently scheduled for September 26; she will be cleared of COVID restrictions at that time) (2) COVID-19 Status: Acute (3) Lung cancer Status: Chronic (4) Obesity (BMI 30-39.9) Status: Acute (5) Pulmonary infiltrate Status: Acute (6) Symptomatic anemia Status: Acute (7) Chronic obstructive lung disease Status: Chronic (8) Dyspnea Status: Chronic Exam Vital signs and Labs for Last 24 Hours: Temp Pulse Resp BP Pulse Ox 98.0 F 75 15 153/61 H 94 L 09/01/21 05:55 09/01/21 05:55 09/01/21 05:55 09/01/21 05:55 09/01/21 05:55 Laboratory Results - last 24 hr 08/31/21 05:51: WBC 4.5 L, RBC 3.45 L, Hgb 7.6 L, Hct 25.2 L, MCV 72.9 L, MCH 22.1 L, MCHC 30.3 L, RDW 22.7 H, Plt Count 384, MPV 7.6, Neut % (Auto) 77.0, Lymph % (Auto) 15.1, [place] % (Auto) 7.8, Eos % (Auto) 0.0 L, Baso % (Auto) 0.1, Neut # (Auto) 3.5, Lymph # (Auto) 0.7, [place] # (Auto) 0.4, Eos # (Auto) 0.0, Baso # (Auto) 0.0 08/31/21 05:51: Sodium 137, Potassium 4.0, Chloride 100, Carbon Dioxide 34 H, Anion Gap 7.0, BUN 28 H, Creatinine 0.90, Estimated Creat Clear 70, Estimated GFR 62, Est GFR ( Amer) 74, Glucose 99, Calcium 8.3 L, Total Bilirubin 0.5, AST 24, ALT 20, Alkaline Phosphatase 52, Total Protein 5.4 L, Albumin 3.1 L, Globulin 2.3, Albumin/Globulin Ratio 1.3 08/31/21 20:58: Blood Type A Positive, Antibody Screen Negative, Crossmatch (AHG) See Detail I & O for Last 24 hours: Intake & Output 08/29/21 08/30/21 08/31/21 09/01/21 11:59 11:59 11:59 11:59 Intake Total 540 / 540 960 / 960 720 / 720 780 / 780 Output Total 0 / 0 0 / 0 Balance 540 / 540 960 / 960 720 / 720 780 / 780 Weight 198 lb 3.129 oz 192 lb 14.4 oz 192 lb 14.401 oz - Constitutional no acute distress - *Routine Respiratory Exam Absent: respiratory distress - *Routine Cardiovascular Exam Absent: tachycardia
--- NOTE | 2021-09-01 09:25 | HMH.PULMPN ---
Internal Medicine - PN: Subj *Date: 09/01/21 *Time: 11:37 Interval history: No acute respiratory events overnight. Patient respiratory status remained stable. Exam - Constitutional Constitutional:: Present: no acute distress, comfortable - HENMT Exam HENMT: Present: normocephalic, atraumatic - Eye Exam Eyes:: Present: normal appearance both eyes and related structures - Neck Exam Neck:: Present: normal visual inspection - Respiratory Exam Respiratory:: Present: able to speak in complete sentences, no respiratory distress. Absent: wheezing - Cardiovascular Exam Cardiac:: Present: S1, S2 - GI Exam GI:: Present: soft - Skin Exam Skin: Present: warm, no rash - Neurological Exam Neurological: Present: alert, awake, normal cognition - Extremities Exam Extremities: Present: no cyanosis, no clubbing, edema Assessment and Plan (1) Anemia Status: Acute Qualifiers: Anemia type: unspecified type Qualified Code(s): D64.9 - Anemia, unspecified Category: Medical Code(s): D64.9 - Anemia, unspecified (2) COVID-19 Status: Acute Category: Medical Code(s): U07.1 - COVID-19 (3) Lung cancer Status: Chronic Qualifiers: Laterality: unspecified laterality Lung location: unspecified part of lung Qualified Code(s): C34.90 - Malignant neoplasm of unspecified part of unspecified bronchus or lung Category: Medical Code(s): C34.90 - Malignant neoplasm of unspecified part of unspecified bronchus or lung (4) Obesity (BMI 30-39.9) Status: Acute Category: Medical Code(s): E66.9 - Obesity, unspecified (5) Pulmonary infiltrate Status: Acute Category: Medical Code(s): R91.8 - Other nonspecific abnormal finding of lung field (6) Symptomatic anemia Status: Acute Category: Medical Code(s): D64.9 - Anemia, unspecified (7) Chronic obstructive lung disease Status: Chronic Qualifiers: COPD type: emphysema Emphysema type: unspecified Qualified Code(s): J43.9 - Emphysema, unspecified Category: Medical Code(s): J44.9 - Chronic obstructive pulmonary disease, unspecified (8) Dyspnea Status: Chronic Qualifiers: Dyspnea type: dyspnea on exertion Qualified Code(s): R06.00 - Dyspnea, unspecified Category: Medical Code(s): R06.00 - Dyspnea, unspecified - Assessment and plan all Dx Assessment and Plan for all problems:: #Acute on chronic hypoxic respiratory failure: #COVID-19 pneumonia: Prior smoker greater than [id number] smoking history, COPD. On triple inhaler therapy along with 2 L oxygen therapy with exertion. Profoundly anemic on presentation status post transfusion hemoglobin improved from 4.9 to 8.2 D-dimer 0.50. COVID-19 PCR positive. Initiated on admission On ceftriaxone, azithromycin, remdesivir and dexamethasone. CTA imagings reviewed, bilateral patchy airspace disease, poor contrast timing. No evidence of pulmonary embolism. Interval update: Renal function stable. Admits continued improvement in her respiratory status, back to her baseline on 2 to 3 L nasal cannula. Received IV diuresis twice on this admission. Volume status improved. Will complete 5-day course of ceftriaxone azithromycin today. Primary team evaluating sources of anemia/blood loss, scheduled for outpatient colonoscopy Plan: -Continue ceftriaxone azithromycinx 5 days for community-acquired pneumonia, Day 5/5 -Continue remdesivir up until discharge and dexamethasone x 10 days. -Continue Trelegy-100 inhaler daily and Duo nebs PRN Thank you for allowing pulmonary this patient care. Will follow the patient in pulmonary clinic in 4 weeks.
--- NOTE | 2021-09-01 09:44 | HMH.ACPN2 ---
Internal Medicine - PN: Subj *Date: 09/01/21 *Time: 09:44 Exam Vital signs and Labs for Last 24 Hours: Temp Pulse Resp BP Pulse Ox 98.1 F 85 18 139/70 93 L 09/01/21 08:40 09/01/21 08:40 09/01/21 08:40 09/01/21 08:40 09/01/21 08:40 Laboratory Results - last 24 hr 08/31/21 20:58: Blood Type A Positive, Antibody Screen Negative, Crossmatch (AHG) See Detail I & O for Last 24 hours: Intake & Output 08/29/21 08/30/21 08/31/21 09/01/21 23:59 23:59 23:59 23:59 Intake Total 720 / 720 1080 / 1080 600 / 600 680 / 680 Output Total 0 / 0 Balance 720 / 720 1080 / 1080 600 / 600 680 / 680 Weight 89.9 kg 87.498 kg 87.498 kg 87.54 kg Assessment and Plan (1) Anemia Status: Acute Qualifiers: Anemia type: unspecified type Qualified Code(s): D64.9 - Anemia, unspecified Category: Medical Code(s): D64.9 - Anemia, unspecified (2) COVID-19 Status: Acute Category: Medical Code(s): U07.1 - COVID-19 (3) Lung cancer Status: Chronic Qualifiers: Laterality: unspecified laterality Lung location: unspecified part of lung Qualified Code(s): C34.90 - Malignant neoplasm of unspecified part of unspecified bronchus or lung Category: Medical Code(s): C34.90 - Malignant neoplasm of unspecified part of unspecified bronchus or lung (4) Obesity (BMI 30-39.9) Status: Acute Category: Medical Code(s): E66.9 - Obesity, unspecified (5) Pulmonary infiltrate Status: Acute Category: Medical Code(s): R91.8 - Other nonspecific abnormal finding of lung field (6) Symptomatic anemia Status: Acute Category: Medical Code(s): D64.9 - Anemia, unspecified (7) Chronic obstructive lung disease Status: Chronic Qualifiers: COPD type: emphysema Emphysema type: unspecified Qualified Code(s): J43.9 - Emphysema, unspecified Category: Medical Code(s): J44.9 - Chronic obstructive pulmonary disease, unspecified (8) Dyspnea Status: Chronic Qualifiers: Dyspnea type: dyspnea on exertion Qualified Code(s): R06.00 - Dyspnea, unspecified Category: Medical Code(s): R06.00 - Dyspnea, unspecified The patient's infection will respond to the chosen ABx?: Yes (NORMAL RESPIRATORY SUZIE IN SPUTUM) Is the patient receiving the right drug, dose, and route?: Yes Could a more targeted ABx be ordered?: No
[2021-09-01 10:39] LABS: Basophils % 0.3 % (0.1-2.0); Hematocrit 32.5 % (37.0-47.0); Hemoglobin 10.2 g/dL (12.2-16.2); Lymphocytes # 0.6 K/mm3 (0.7-4.5); Lymphocytes % 7.5 % (10-50); Mean Corpuscular HGB Conc 31.3 g/dL (31.8-35.4); Mean Corpuscular Hemoglobin 24.2 pg (27.0-31.2); Mean Corpuscular Volume 77.4 fl (81-99); Mean Platelet Volume 8.9 fl (7.4-10.4); Monocytes # 0.5 K/mm3 (0.1-1.0); Monocytes % 5.9 % (1.7-9.3); Neutrophils # 6.6 K/mm3 (1.8-7.8); Neutrophils % 86.2 % (37.0-80.0); Platelet Count 407 K/mm3 (142-424); Red Cell Distribution Width 23.6 % (11.5-17.5); White Blood Count 7.7 K/mm3 (4.8-10.8)
[2021-09-01 10:43] LABS: MANUAL DIFFERENTIAL MANUAL DIFFERENTIAL (MANUAL DIFF)
[2021-09-01 11:03] LABS: Chloride 102 mmol/L (98-107); Potassium 4.3 mmoL/L (3.5-5.1); Sodium 138 mmol/L (136-145)
[2021-09-01 11:05] LABS: Alanine Aminotransferase 24 U/L (12-78); Aspartate Amino Transferase 33 U/L (14-36); Blood Urea Nitrogen 26 mg/dl (7-17); Creatinine Clearance Estimated 70 mL/min (50-200); Estimated Glomerular Filt Rate 62 ml/min (>60); GFR (African American) 74 ML/MIN (>60)
[2021-09-01 11:06] LABS: Albumin Level 3.3 g/dl (3.5-5.0); Albumin/Globulin Ratio 1.3 (1.1-1.8); Alkaline Phosphatase 55 U/L (38-126); Anion Gap 9.3 mEq/L (5-15); Bilirubin,Total 0.7 mg/dl (0.2-1.3); Calcium 8.1 mg/dl (8.4-10.2); Carbon Dioxide 31 mmol/L (22.0-30.0); Globulin 2.6 g/dL (1.3-3.2); Glucose 101 mg/dl (74-100); Total Protein,Serum 5.9 g/dl (6.3-8.2)
--- NOTE | 2021-09-01 11:43 | HMH.DCSUM ---
General - General Admission date:: 08/26/21 Discharge date: 09/01/21 HPI HPI: Patient is a 70-year-old female, usually sees Laila Zarco in the office, is a diagnosis of lung cancer that is post XRT 2 years ago. Presented to the emergency room with increased dyspnea. Her work-up included imaging studies, chest x-ray showing a known left apical mass and infiltrative process consistent with pneumonia. She is COVID-positive. CTA of the chest was performed and is pending at the time of dictation. Of note was a markedly diminished hemoglobin at 4.9 which dictated transfusion. She is in the low eights today and feels significantly better. She relays that this is the second time she has become anemic and been transfused. She denies emesis, melanotic stool or hemoptysis. She is followed by the pulmonary service as an outpatient and was just seen there recently. She is unvaccinated. Hospital Course Hospital Course: pulm consult:Assessment and plan all Dx Assessment and Plan for all problems:: #Acute on chronic hypoxic respiratory failure: #COVID-19 pneumonia: Prior smoker greater than [id number] smoking history, COPD. On triple inhaler therapy along with 2 L oxygen therapy with exertion. Profoundly anemic on presentation status post transfusion hemoglobin improved from 4.9 to 8.2 D-dimer 0.50. COVID-19 PCR positive. Initiated on admission On ceftriaxone, azithromycin, remdesivir and dexamethasone. CTA imagings reviewed, bilateral patchy airspace disease, poor contrast timing. No evidence of pulmonary embolism. Interval update: Renal function stable. Admits continued improvement in her respiratory status, back to her baseline on 2 to 3 L nasal cannula. Received IV diuresis twice on this admission. Volume status improved. Will complete 5-day course of ceftriaxone azithromycin today. Primary team evaluating sources of anemia/blood loss, scheduled for outpatient colonoscopy Plan: -Continue ceftriaxone azithromycinx 5 days for community-acquired pneumonia, Day 5/5 -Continue remdesivir up until discharge and dexamethasone x 10 days. -Continue , Laboratory Tests 08/26/21 08/26/21 08/26/21 17:53 18:20 18:20 WBC 7.1 RBC 2.62 L Hgb 4.9 L* Hct 17.4 L* MCV 66.6 L MCH 18.7 L MCHC 28.2 L RDW 20.0 H Plt Count 268 MPV 7.9 Neut % (Auto) 87.2 H Lymph % (Auto) 8.7 L [place] % (Auto) 3.9 Eos % (Auto) 0.0 L Baso % (Auto) 0.2 Neut # (Auto) 6.2 Lymph # (Auto) 0.6 L [place] # (Auto) 0.3 Eos # (Auto) 0.0 Baso # (Auto) 0.0 Total Counted 100 Neutrophils % (Manual) 88 H Band Neutrophils % 5.0 Lymphocytes % (Manual) 5 L Monocytes % (Manual) 2 Nucleated RBCs Platelet Estimate Normal Hypochromasia 3+ Anisocytosis 3+ Microcytosis 3+ Rouleaux 3+ D-Dimer Sodium 136 Potassium 4.2 Chloride 103 Carbon Dioxide 26 Anion Gap 11.2 BUN 30 H Creatinine 1.00 Estimated Creat Clear 73 Estimated GFR 55 L Est GFR ( Amer) 66 Glucose 123 H Calcium 8.2 L Total Bilirubin 0.4 AST 29 ALT 16 Alkaline Phosphatase 56 Troponin I C-Reactive Protein Total Protein 6.2 L Albumin 3.5 Globulin 2.7 Albumin/Globulin Ratio 1.3 Stool Occult Blood SARS-CoV-2 (PCR) Detected A Influenza A Untype (PCR) Not detected Influenza Type B (PCR) Not detected Blood Type Antibody Screen Crossmatch ([facility]) 08/26/21 08/26/21 08/26/21 18:20 18:20 20:15 WBC RBC Hgb Hct MCV MCH MCHC RDW Plt Count MPV Neut % (Auto) Lymph % (Auto) [place] % (Auto) Eos % (Auto) Baso % (Auto) Neut # (Auto) Lymph # (Auto) [place] # (Auto) Eos # (Auto) Baso # (Auto) Total Counted Neutrophils % (Manual) Band Neutrophils % Lymphocytes % (Manual) Monocytes % (Manual) Nucleated RBCs Platelet Estimate Hypochroma
[2021-09-01 14:42] LABS: Lymphocytes % 3 % (10-50); Monocytes % 1 % (2-9); Neutrophils % 96 % (42-76); Total Cells Counted 100
[2021-09-01 14:43] LABS: Anisocytosis 1+; Hypochromasia 1+; Microcytosis 1+; Platelet Estimate 1
[2021-09-01 14:44] LABS: Nucleated Red Blood Cells 1
== END 2021-09-01 14:05 | disposition home or self-care (01) | DRG 177 ==
LOC: ER 17:48 → 2ND 21:50
PROVIDERS: Internal Medicine Pulmonary Disease; Nurse Practitioner Family; Admitting Provider Family Medicine; Emergency Provider Emergency Medicine; PCP Emergency Medicine; Visit Provider Family Medicine
DX: U07.1 COVID-19 (principal); J12.82 Pneumonia due to coronavirus disease 2019; J18.9 Pneumonia, unspecified organism; C34.90 Malignant neoplasm of unspecified part of unspecified bronchus or lung; D64.9 Anemia, unspecified; Z99.81 Dependence on supplemental oxygen; I25.10 Atherosclerotic heart disease of native coronary artery without angina pectoris; I10 Essential (primary) hypertension; Z91.19 Patient's noncompliance with other medical treatment and regimen; Z87.891 Personal history of nicotine dependence; J43.9 Emphysema, unspecified; E66.9 Obesity, unspecified; Z68.32 Body mass index [BMI] 32.0-32.9, adult
CPT/HCPCS: 36415; 36430; 71045; 71275; 74177; 80053; 82272; 84484; 85007; 85014; 85018; 85025; 85378; 86140; 86850; 87070; 87205; 93005; 94640; 94761; 96374; 99284; C9803; G0328; J0456; J0696; P9016; Q9967; U0003; U0005

== ENCOUNTER → 2021-09-13 17:52 | Outpatient (CLI) | payer MEDICARE, OTHER, SELFPAY ==
[2021-09-13 17:47] LABS: Basophils % 0.4 % (0.1-2.0); Eosinophils # 0.1 K/mm3 (0.0-0.4); Hematocrit 32.5 % (37.0-47.0); Lymphocytes # 0.8 K/mm3 (0.7-4.5); Lymphocytes % 13.4 % (10-50); Mean Corpuscular HGB Conc 30.9 g/dL (31.8-35.4); Mean Corpuscular Hemoglobin 25.1 pg (27.0-31.2); Mean Corpuscular Volume 81.2 fl (81-99); Mean Platelet Volume 9.9 fl (7.4-10.4); Monocytes # 0.4 K/mm3 (0.1-1.0); Monocytes % 7.1 % (1.7-9.3); Neutrophils # 4.7 K/mm3 (1.8-7.8); Neutrophils % 78.1 % (37.0-80.0); Platelet Count 220 K/mm3 (142-424); Red Blood Count 4.01 M/mm3 (4.20-5.40); Red Cell Distribution Width 24.6 % (11.5-17.5); White Blood Count 6.1 K/mm3 (4.8-10.8)
[2021-09-13 18:06] LABS: Anion Gap 12.2 mEq/L (5-15); Blood Urea Nitrogen 18 mg/dl (7-17); Calcium 8.8 mg/dl (8.4-10.2); Carbon Dioxide 28 mmol/L (22.0-30.0); Chloride 103 mmol/L (98-107); Estimated Glomerular Filt Rate 82 ml/min (>60); GFR (African American) 100 ML/MIN (>60); Glucose 87 mg/dl (74-100); Potassium 4.2 mmoL/L (3.5-5.1); Sodium 139 mmol/L (136-145)
== END ==
PROVIDERS: Visit Provider Emergency Medicine
DX: E66.9 Obesity, unspecified (principal); D64.9 Anemia, unspecified; Z68.31 Body mass index [BMI] 31.0-31.9, adult
CPT/HCPCS: 80048; 85025

== ENCOUNTER 2021-09-26 10:13 | Day surgery (SDC) | payer MEDICARE, OTHER, SELFPAY ==
[2021-09-22 13:23] VITALS: BMI 32.5
[2021-09-26] VITALS (10 sets, daily range): BP systolic 115–157; BP diastolic 45–70; PULSE 74–94; RESP 14–18; TEMP 36.3–36.5; O2SAT 93–97
--- NOTE | 2021-09-26 10:31 | P.PN_ITS ---
[facility] Anesthesia Checklist - Patient Identification Patient Identification: Arm Band - Structural Data Admitted From: Home Planned Operative Procedure/s: EGD/Colonoscopy Consent for Planned Operative Procedure(s) Verified: Yes - NPO Status Verified Time NPO: 06:00 (Prep) - Additional verifications Anesthesia Reactions: No Hx Blood Transfusions: Yes Blood Transfusion Reaction: No - Airway Assessment C-Spine Mobility Assessed: Yes TMJ Mobility Assessed: Yes Dentition: Edentulous - Neurological Assessment Level of Consciousness: Awake Hx Seizures: No Numbness or tingling in extremities: No - Anesthesia Plan Anesthesia Risk discussed: Yes Anesthesia Plan: Verified ASA Class: III Anesthesia Type: MAC [facility] History Medical History: Reports:: Anxiety, Asthma, Cancer (lung), Chronic Obstructive Pulmonary Disease (COPD), Coronary Artery Disease, Depression, Home Oxygen (2L), Hyperlipidemia, Hypertension Denies:: Diabetes Mellitus Type 1, Diabetes Mellitus Type 2, Internal Pacemaker, MRSA, Seizures *Have you ever received a pneumonia vaccine?: Yes *Have you received a flu vaccine this season?: Yes Other Medical History: Reports: Anemia, Radiation Therapy, Other. Denies: Blood Transfusion Reaction Anesthesia experience/problems:: None Laterality Cases: Bilateral: Carpal Tunnel Release Other Surgeries: Yes: No Previous Surgery, Cancer Surgery, Colonoscopy, EGD, Skin Cancer Excision, Tubal Ligation, Other. No: Pacemaker Amputation: No Fractures: No - *Social History Last grade of school completed: High school graduate Smoking Status: Never smoker Alcohol Intake: never Alcohol Intake Frequency:: holidays/special occasions only Substance Use Type: denies use *Occupational Status:: retired Housing: house Household Members: none *Travel in the last 8 weeks: None - Psychiatric History Pschychiatric History:: Reports:: Anxiety, Depression Family Hx:: No significant family history
--- NOTE | 2021-09-26 11:37 | [facility].SCOPE ---
- Procedure: Date: 09/26/21 Patient Date of :: 1950 Procedure Performed:: Esophagogastroduodenoscopy with biopsy Colonoscopy with biopsy Indications:: Anemia Heme positive stool Performing Provider:: Kyle Johnson MD Referring Provider:: Dr. Brand Sedation:: Monitored anesthesia care Procedure:: After informed consent was obtained the patient was taken to the endoscopy suite. Sedation ensued after the patient was transferred to the left lateral decubitus position. Pulse, blood pressure, and oxygen saturation were monitored throughout the procedure. The endoscope was advanced beyond the duodenal bulb. Retroflexion within the gastric lumen was accomplished. The gastroscope was carefully removed. Digital rectal exam revealed no significant abnormality. The colonoscope was placed in position. The entire colon was evaluated. The colonoscope was carefully removed and the patient was transferred to recovery in stable condition. Please see findings and specimens below for detail. 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
== END 2021-09-26 13:30 | disposition home or self-care (01) ==
LOC: OUTP 10:15
PROVIDERS: PCP Emergency Medicine; Visit Provider Surgery
PROC: 0DJ08ZZ Inspection of Upper Intestinal Tract, Via Natural or Artificial Opening Endoscopic (ICD-10-PCS; CPT 43235; principal; 2021-09-26 11:30)
DX: C18.0 Malignant neoplasm of cecum (principal); K29.60 Other gastritis without bleeding; K44.9 Diaphragmatic hernia without obstruction or gangrene; K56.2 Volvulus; K57.30 Diverticulosis of large intestine without perforation or abscess without bleeding; K64.9 Unspecified hemorrhoids; K58.9 Irritable bowel syndrome, unspecified; F41.9 Anxiety disorder, unspecified; J44.9 Chronic obstructive pulmonary disease, unspecified; Z85.118 Personal history of other malignant neoplasm of bronchus and lung; Z99.81 Dependence on supplemental oxygen; E78.5 Hyperlipidemia, unspecified; I10 Essential (primary) hypertension
CPT/HCPCS: 43239; 45380; 88305

== ENCOUNTER → 2021-11-09 09:33 | Outpatient (CLI) | payer MEDICARE, OTHER, SELFPAY | PROVIDERS: Visit Provider Student in an Organized Health Care Education/Training Program | DX: Z01.812 Encounter for preprocedural laboratory examination (principal); Z11.52 Encounter for screening for COVID-19 | CPT/HCPCS: C9803; U0003; U0005 ==

== ENCOUNTER → 2022-01-31 08:14 | Outpatient (CLI) | payer MEDICARE, OTHER, SELFPAY ==
--- NOTE | 2022-01-31 08:22 | CT_ITS ---
FINAL REPORT CLINICAL HISTORY: MALIGNANT NEOPLASM OF UPPER LOBE OF LEFT LUNG COMPARISON: August 26, 2021 FINDINGS: Axial CT images of the chest were obtained with contrast. Coronal reformatted images were also obtained. This study was performed with techniques to keep radiation doses as low as reasonably achievable, (ALARA). Individualized dose reduction techniques using automated exposure control or adjustment of mA and/or KV according to the patient's size were employed. A right internal jugular port is noted. There has been interval improvement in the mediastinal adenopathy. A lower right paratracheal node measures 12 mm, was 17 mm. A subcarinal node measures 22 mm, was 27 mm. Other mediastinal nodes are improved. No axillary mass or adenopathy is identified. There has been partial improvement of a wedge shaped left upper lobe opacity of uncertain etiology which may represent post treatment change. A left lower lobe nodule measures 7 mm, was 8 mm. There has been significant improvement of other pulmonary opacities. There is bronchial wall thickening consistent with bronchitis. A small pericardial effusion is partially improved. There is a small hiatal hernia. IMPRESSION: Improved mediastinal adenopathy Partially improved left upper lobe opacity, may represent post treatment change. No significant change in the nonspecific left lower lobe nodule. Improved opacities. Reviewed, Interpreted and Dictated by Ed Borrego III, MD Transcribed by Lamar Monzon Authenticated and . [facility]
--- NOTE | 2022-01-31 08:23 | CT_ITS ---
FINAL REPORT CLINICAL HISTORY: MALIGNANT NEOPLASM OF UPPER LOBE OF LEFT LUNG COMPARISON: August 26, 2021 FINDINGS: CT OF THE ABDOMEN AND PELVIS WITH CONTRAST Axial CT images of the abdomen and pelvis were obtained after the administration of iv contrast. Coronal reformatted images were also obtained and reviewed.This study was performed with techniques to keep radiation doses as low as reasonably achievable (ALARA). Individualized dose reduction techniques using automated exposure control or adjustment of mA and/or kV according to the patient's size were employed. Abdomen: The heart is normal in size. There are multiple new low-attenuation hepatic masses consistent with multiple new hepatic metastases. The largest is in the inferior right hepatic lobe measuring 11 mm. There are several gallstones in the gallbladder. There is mild nonspecific gallbladder wall thickening. The spleen is unremarkable. No adrenal mass is present. The pancreas has an unremarkable appearance. The kidneys are normal, without evidence of mass or hydronephrosis. There are moderate to severe vascular calcifications. There is moderate to severe aortic stenosis centered at L3-4. There is no free fluid or adenopathy. There is a supraumbilical hernia containing fat. There is stranding of the fat in the hernia consistent with edema/inflammation. Pelvis: The appendix is normal. The urinary bladder is unremarkable.There is no evidence of mass or adenopathy. There is no evidence of bowel obstruction. There are multiple sigmoid diverticula. IMPRESSION: Multiple new hepatic metastases. Supraumbilical hernia containing fat with stranding of the fat consistent with edema or inflammation. Gallstones with gallbladder wall thickening. Cholecystitis is not excluded. If indicated, nuclear medicine hepatobiliary scan may be helpful. Reviewed, Interpreted and Dictated by Ed Borrego III, MD Transcribed by Lamar Monzon Authenticated and [facility]
== END ==
PROVIDERS: PCP Emergency Medicine; Visit Provider Internal Medicine
DX: C34.12 Malignant neoplasm of upper lobe, left bronchus or lung (principal); C18.9 Malignant neoplasm of colon, unspecified; C78.7 Secondary malignant neoplasm of liver and intrahepatic bile duct
CPT/HCPCS: 71260; 74177; J1642; Q9967

== ENCOUNTER 2023-02-19 18:18 | Emergency (ER) | payer MEDICARE, OTHER, SELFPAY ==
[2023-02-19 18:19] VITALS: BP 127/55; PULSE 95; RESP 17; TEMP 36.6; O2SAT 96; BMI 29.7
[2023-02-19 19:00] VITALS: BP 134/56; PULSE 98; O2SAT 98
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
[2023-02-19 19:33] VITALS: BP 135/59; PULSE 90; RESP 20; TEMP 36.6; O2SAT 96
== END 2023-02-19 19:34 | disposition home or self-care (01) ==
PROVIDERS: Emergency Provider Student in an Organized Health Care Education/Training Program; PCP Emergency Medicine
DX: J44.1 Chronic obstructive pulmonary disease with (acute) exacerbation (principal); S61.217A Laceration without foreign body of left little finger without damage to nail, initial encounter; H66.91 Otitis media, unspecified, right ear; W23.2XXA Caught, crushed, jammed or pinched between a moving and stationary object, initial encounter; M48.061 Spinal stenosis, lumbar region without neurogenic claudication; M51.36 Other intervertebral disc degeneration, lumbar region; M50.30 Other cervical disc degeneration, unspecified cervical region
CPT/HCPCS: 12001; 99283; 99284

== ENCOUNTER 2023-08-26 21:07 | Emergency (ER) | payer MEDICARE, OTHER, SELFPAY ==
[2023-08-26 21:07] VITALS: BP 120/49; PULSE 96; RESP 20; TEMP 36.9; O2SAT 96; BMI 27.6
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
--- NOTE | 2023-08-26 21:14 | CT_ITS ---
PROCEDURE INFORMATION: Exam: CT Cervical Spine Without Contrast Exam date and time: 08/26/2023 9:25 PM Age: 72 years old Clinical indication: Injury or trauma; Fall; Blunt trauma TECHNIQUE: Imaging protocol: Computed tomography of the cervical spine without contrast. Radiation optimization: All CT scans at this facility use at least one of these dose optimization techniques: automated exposure control; mA and/or kV adjustment per patient size (includes targeted exams where dose is matched to clinical indication); or iterative reconstruction. COMPARISON: FINDINGS: Bones/joints: No acute fracture. Normal alignment. Degenerative changes. C2-C3: No significant disc bulge or herniation. No severe spinal canal stenosis. No significant neural foraminal narrowing. C3-C4: No significant disc bulge or herniation. No severe spinal canal stenosis. No significant neural foraminal narrowing. C4-C5: No significant disc bulge or herniation. No severe spinal canal stenosis. No significant neural foraminal narrowing. C5-C6: No significant disc bulge or herniation. No severe spinal canal stenosis. No significant neural foraminal narrowing. C6-C7: No significant disc bulge or herniation. No severe spinal canal stenosis. No significant neural foraminal narrowing. C7-T1: No significant disc bulge or herniation. No severe spinal canal stenosis. No significant neural foraminal narrowing. Lungs: Lung apices are normal. Soft tissues: Unremarkable. IMPRESSION: No acute traumatic findings.
--- NOTE | 2023-08-26 21:25 | XR_ITS ---
PROCEDURE INFORMATION: Exam: XR Left Elbow Exam date and time: 08/26/2023 9:24 PM Age: 72 years old Clinical indication: Injury or trauma; Fall; Blunt trauma (contusions or hematomas); Elbow; Left TECHNIQUE: Imaging protocol: Radiologic exam of the left elbow. Views: 3 or more views. COMPARISON: No relevant prior studies available. FINDINGS: Bones/joints: Normal. Soft tissues: Normal. IMPRESSION: No acute findings.
[2023-08-26 21:27] LABS: Basophils % 0.5 % (0.1-2.0); Eosinophils # 0.3 K/mm3 (0.0-0.4); Eosinophils % 4.4 % (0.1-12.0); Hematocrit 27.8 % (37.0-47.0); Hemoglobin 8.9 g/dL (12.2-16.2); Lymphocytes # 2.2 K/mm3 (0.7-4.5); Lymphocytes % 28.5 % (10-50); Mean Corpuscular HGB Conc 32.2 g/dL (31.8-35.4); Mean Corpuscular Hemoglobin 26.4 pg (27.0-31.2); Mean Platelet Volume 9.8 fl (7.4-10.4); Monocytes # 0.7 K/mm3 (0.1-1.0); Monocytes % 9.4 % (1.7-9.3); Neutrophils # 4.4 K/mm3 (1.8-7.8); Neutrophils % 57.2 % (37.0-80.0); Platelet Count 294 K/mm3 (142-424); Red Blood Count 3.39 M/mm3 (4.20-5.40); Red Cell Distribution Width 18.1 % (11.5-17.5); White Blood Count 7.7 K/mm3 (4.8-10.8)
[2023-08-26 21:30] LABS: Chloride 104 mmol/L (98-107)
[2023-08-26 21:31] LABS: Potassium 3.8 mmoL/L (3.5-5.1); Sodium 135 mmol/L (136-145)
[2023-08-26 21:33] VITALS: BP 101/45; PULSE 67; O2SAT 96
[2023-08-26 21:34] LABS: Alanine Aminotransferase 13 U/L (12-78); Albumin Level 2.7 g/dl (3.5-5.0); Alkaline Phosphatase 69 U/L (38-126); Anion Gap 9.8 mEq/L (5-15); Aspartate Amino Transferase 19 U/L (14-36); Bilirubin,Total 0.3 mg/dl (0.2-1.3); Blood Urea Nitrogen 39 mg/dl (7-17); Calcium 7.7 mg/dl (8.4-10.2); Carbon Dioxide 25 mmol/L (22.0-30.0); Creatinine Clearance Estimated 32 mL/min (50-200); Estimated Glomerular Filt Rate 29 ml/min (>60); GFR (African American) 36 ML/MIN (>60); Globulin 2.7 g/dL (1.3-3.2); Glucose 151 mg/dl (74-100); Total Protein,Serum 5.4 g/dl (6.3-8.2)
--- NOTE | 2023-08-26 21:43 | PC.NURSE ---
in room talking with patient at this time.
[2023-08-26] MEDS: 0.9 % SODIUM CHLORIDE 1000ML 1,000 ML 999 ML IV (21:45)
--- NOTE | 2023-08-26 21:50 | HMH.EDGENADL ---
Discharge Plan Disposition Patient Disposition: Xfer Short-Term Hosp Condition: Fair Clinical Impressions Clinical Impression: Fall, Neurapraxia Central cord syndrome Qualifiers: Encounter type: initial encounter Qualified Code(s): S14.129A - Central cord syndrome at unspecified level of cervical spinal cord, initial encounter Discharge ED Provider: Miya Vazquez General Adult HPI <Vinny Aragon MD - Last Filed: 08/26/23 23:05> General Chief complaint: Fall Stated complaint: fall Time Seen by Provider: 08/26/23 21:15 Mode of Arrival: EMS Source of Information: Patient Limitations: No Limitations Description of Symptoms (Recalled from ER Triage Doc. by RN): Patient stood up, got dizzy and fell down. Unknown LOC, right arm skin tears, left elbow pain and both hands tingling. History of Present Illness HPI narrative: 72-year-old female with history of CAD, COPD, CHF, hypertension, hyperlipidemia presenting with fall. Patient states that just before arrival she was with her daughter. She stood up too fast from the bed, got tunnel vision, felt lightheaded, tried to lower self to the ground, but syncopized. Daughter was there, tried to catch her, but was unable to. Patient woke up to the ambulance crew around her. She was placed in c-collar and brought to the emergency department. On arrival, patient complaining of tingling in her bilateral hands and pain in her left elbow as well as skin tear on the back of her right hand. Denies weakness, bowel or bladder dysfunction, difficulty breathing, or any other concerns. Related Data Previous Rx's Medication Instructions Recorded lisinopril 10 1 tab PO BID #180 tabs 12/25/22 mg-hydrochlorothiazide 12.5 mg tablet albuterol sulfate 1.25 mg/3 mL 1.25 mg (3 mL) inhalation Q6H PRN 01/08/23 solution for nebulization shortness of breath or wheezing #270 mL albuterol sulfate 90 mcg/actuation 1 inh inhalation QID PRN shortness 01/08/23 aerosol inhaler (Ventolin HFA) of breath or wheezing 90 days #8.5 grams aspirin 81 mg tablet,delayed 81 mg PO DAILY HEART HEALTH #90 01/08/23 release tabs escitalopram oxalate 20 mg tablet 20 mg PO DAILY Depression #90 tabs 01/08/23 fluticasone fur. 100 mcg-umeclid 1 ea inhalation DAILY COPD 90 days 01/08/23 62.5 mcg-vilant 25 mcg #60 ea inhalat.powder rosuvastatin 20 mg tablet 20 mg PO HS High cholesterol #90 01/08/23 tabs trazodone 50 mg tablet 50 mg PO HS SLEEP #90 tabs 01/08/23 albuterol sulfate 90 mcg/actuation 4 inh inhalation Q4H PRN shortness 02/19/23 aerosol inhaler of breath or wheezing #8.5 grams amoxicillin 875 mg-potassium 1 tab PO BID 10 days #20 tabs 02/19/23 clavulanate 125 mg tablet azithromycin 250 mg tablet See Rx Instructions PO .COMPLEX #6 02/19/23 tabs benzonatate 100 mg capsule 100 mg PO TID PRN cough 5 days #20 02/19/23 caps prednisone 50 mg tablet 50 mg PO DAILY 5 days #5 tabs 02/19/23 Allergies Allergy/AdvReac Type Severity Reaction Status Date / Time fenofibrate [FENOFIBRATE] Allergy Unknown S-ANAPHYLAX Verified 01/08/23 15:25 IS oxaprozin [OXAPROZIN] Allergy Unknown S-ANAPHYLAX Verified 01/08/23 15:25 IS PFSH <Vinny Aragon MD - Last Filed: 08/26/23 23:05> [facility] Disclaimer: The information contained in this section may have been updated after the patient was seen, as this information can be updated by other users. Medical History Cervical spondylolysis Colon cancer Degenerative disc disease, cervical Degenerative disc disease, lumbar Dyspnea Lumbar canal stenosis Lung cancer Social History Smoking Status: Never smoker second hand exposure: No alcohol intake: current substance use type: denies use current occupational status: disabled Travel in the last 8 weeks: None household members: none housing: house current occupational exposures/hazards: No caffeine: Yes <Vinny Aragon MD - Last Filed: 08/26/23 23:05> ROS Obtained: Yes All systems reviewed & no additional complaints except as documented Physical Exam <Vinny Aragon MD - Last Filed: 08/26/23 23:05> General General appearance: alert and in no apparent distress Head Head exam: atraumatic and normocephalic Eye Eye exam: Present EOMI and other (Right pupil 3 mm and fixed, left pupil 4 and reactive. This is baseline, per patient) ENT ENT exam: Present mucous membranes moist and other (cervical collar) Neck Neck exam: Present trachea midline Respiratory Respiratory exam: Present normal lung sounds bilaterally; Absent respiratory distress, wheezes, stridor, accessory muscle use or prolonged expiratory phase Cardiovascular Cardiovascular exam: Present regular rate and normal rhythm Abdominal Exam Abdominal exam: Present soft; Absent distention, tenderness, guarding, rebound or rigidity Extremities Exam Extremities exam: Present other (Skin tear on dorsal aspect of right wrist. No tenderness otherwise. Patient has tenderness at left elbow without signs of deformity. Neurovascular intact bilaterally); Absent edema Neurological Exam Neurological exam: Present alert, oriented X3, CN II-XII intact, normal gait and motor sensory deficit (Patient strength intact and symmetric in bilateral upper and lower extremities, but sensation is decreased and tingly, on bilateral upper extremity exam distal to elbows.) Skin Skin exam: Present warm and dry; Absent diaphoresis or erythema Medical Decision Making <Vinny Aragon MD - Last Filed: 08/26/23 23:05> Medical Records Medical records reviewed: Yes I reviewed the patient's medical records. Luan Inquiry Pt receiving controlled substance: No Luan was queried for this patient: No Vital Signs: 08/26/23 21:07 08/26/23 21:33 08/26/23 22:00 Temperature 98.4 F Temperature Source Oral Pulse Rate 67 65 Pulse Rate [Radial] 96 H Respiratory Rate 20 Blood Pressure 101/45 L 106/44 L Blood Pressure [Right Arm] 120/49 L Blood Pressure Mean 68 Blood Pressure Mean [Right Arm] 72 Blood Pressure Source [Right Arm] Automatic Cuff Blood Pressure Position [Right Arm] Sitting 02 Sat by Pulse Oximetry 96 96 97 Oxygen Delivery Method Room Air Room Air 08/26/23 22:30 Temperature Temperature Source Pulse Rate 61 Pulse Rate [Radial] Respiratory Rate Blood Pressure 123/50 L Blood Pressure [Right Arm] Blood Pressure Mean Blood Pressure Mean [Right Arm] Blood Pressure Source [Right Arm] Blood Pressure Position [Right Arm] 02 Sat by Pulse Oximetry 96 Oxygen Delivery Method Lab Data Lab Results 08/26/23 21:20: WBC 7.7, RBC 3.39 L, Hgb 8.9 L, Hct 27.8 L, MCV 82.0, MCH 26.4 L, MCHC 32.2, RDW 18.1 H, Plt Count 294, MPV 9.8, Neut % (Auto) 57.2, Lymph % (Auto) 28.5, Saunders % (Auto) 9.4 H, Eos % (Auto) 4.4, Baso % (Auto) 0.5, Neut # (Auto) 4.4, Lymph # (Auto) 2.2, Saunders # (Auto) 0.7, Eos # (Auto) 0.3, Baso # (Auto) 0.0, Sodium 135 L, Potassium 3.8, Chloride 104, Carbon Dioxide 25, Anion Gap 9.8, BUN 39 H, Creatinine 1.70 H, Estimated Creat Clear 32, Estimated GFR 29 L, Est GFR ( Amer) 36 L, Glucose 151 H, Calcium 7.7 L, Total Bilirubin 0.3, AST 19, ALT 13, Alkaline Phosphatase 69, Total Protein 5.4 L, Albumin 2.7 L, Globulin 2.7, Albumin/Globulin Ratio 1.0 L 08/26/23 21:20 08/26/23 21:20 Orders (Tests/Meds): ED MEDICATIONS Generic Name Dose Route Start Last Admin Trade Name Freq PRN Reason Stop Dose Admin Oxycodone/Acetaminophen 1 each 08/26/23 23:15 08/26/23 23:20 Oxycodone 5mg W/Apap 325mg Tablet PO 08/26/23 23:16 1 each ONCE ONE Administration Discontinued Medications Generic Name Dose Route Start Last Admin Trade Name Freq PRN Reason Stop Dose Admin Dexamethasone Sodium Phosphate 10 mg 08/26/23 21:54 08/26/23 22:06 Dexamethasone 4mg/Ml 1ml Vial IV 08/26/23 21:55 10 mg ONCE ONE Administration Sodium Chloride 1,000 mls @ 999 mls/hr 08/26/23 21:38 08/26/23 21:45 Sod Chlor 0.9% 1000ml Bag IV 08/26/23 22:38 999 mls/hr .Q1H1M ONE Administration ORDERS Category Date Time Status CT cervical spine wo con Stat Cat Scan 08/26/23 21:[address] head/brain wo con Stat Cat Scan 08/26/23 21:13 Completed Elbow XR left mininum 3 views [XR elbow LT min 3V] Stat Exams 08/26/23 21:25 Completed CBC w/Auto Diff [Complete Blood Count Auto Diff] Stat Lab 08/26/23 21:20 Completed CMP [Comprehensive Metabolic Panel] Stat Lab 08/26/23 21:20 Completed Medical Decision Narrative: 72-year-old female with history of CAD, COPD, CHF, hypertension, hyperlipidemia presenting with fall. Patient states that just before arrival she was with her daughter. She stood up too fast from the bed, got tunnel vision, felt lightheaded, tried to lower self to the ground, but syncopized. Daughter was there, tried to catch her, but was unable to. Patient woke up to the ambulance crew around her. She was placed in c-collar and brought to the emergency department. On arrival, patient complaining of tingling in her bilateral hands and pain in her left elbow as well as skin tear on the back of her right hand. Denies weakness, bowel or bladder dysfunction, difficulty breathing, or any other concerns. Patient states that she has been ambulatory since this time. History was obtained via conversation with patient. On arrival, patient hemodynamically stable, alert, oriented x4, appropriate, GCS 15, moving all extremities spontaneously, pupils equal and reactive to light. Full physical exam performed and significant for atraumatic head. C-spine and cervical collar for the time being. Neurovascular exam intact other than symmetric bilateral sensory deficit from elbows distally bilateral upper extremities. Patient does have tenderness about left elbow and skin tear on the dorsal aspect of her right wrist. Differential includes intracranial bleed, unstable cervical spine injury, neuropraxia, central cord syndrome, fracture, sprain, strain, among others. Patient was given fluid bolus for symptomatic management and correction of underlying abnormalities. Workup independently interpreted and significant for no intracranial hemorrhage, no obvious cervical spine injury. Workup with anemia 8.9, platelets within normal limits and white blood cells within normal limits. Mild ADELINE with creatinine 1.7. See radiology read for full review of final results. On reevaluation, patient resting comfortably in bed, c-collar was changed out and more comfortable 1. Because patient having persistent neurosymptoms, [facility] neurosurgery was contacted. Prior to formal consultation and disposition, care handed off to oncoming physician. <Miya Vazquez MD - Last Filed: 08/27/23 00:13> Vital Signs: 08/26/23 21:07 08/26/23 21:33 08/26/23 22:00 Temperature 98.4 F Temperature Source Oral Pulse Rate 67 65 Pulse Rate [Radial] 96 H Respiratory Rate 20 Blood Pressure 101/45 L 106/44 L Blood Pressure [Right Arm] 120/49 L Blood Pressure Mean 68 Blood Pressure Mean [Right Arm] 72 Blood Pressure Source [Right Arm] Automatic Cuff Blood Pressure Position [Right Arm] Sitting 02 Sat by Pulse Oximetry 96 96 97 Oxygen Delivery Method Room Air Room Air 08/26/23 22:30 Temperature Temperature Source Pulse Rate 61 Pulse Rate [Radial] Respiratory Rate Blood Pressure 123/50 L Blood Pressure [Right Arm] Blood Pressure Mean Blood Pressure Mean [Right Arm] Blood Pressure Source [Right Arm] Blood Pressure Position [Right Arm] 02 Sat by Pulse Oximetry 96 Oxygen Delivery Method Lab Data Lab Results 08/26/23 21:20: WBC 7.7, RBC 3.39 L, Hgb 8.9 L, Hct 27.8 L, MCV 82.0, MCH 26.4 L, MCHC 32.2, RDW 18.1 H, Plt Count 294, MPV 9.8, Neut % (Auto) 57.2, Lymph % (Auto) 28.5, Saunders % (Auto) 9.4 H, Eos % (Auto) 4.4, Baso % (Auto) 0.5, Neut # (Auto) 4.4, Lymph # (Auto) 2.2, Saunders # (Auto) 0.7, Eos # (Auto) 0.3, Baso # (Auto) 0.0, Sodium 135 L, Potassium 3.8, Chloride 104, Carbon Dioxide 25, Anion Gap 9.8, BUN 39 H, Creatinine 1.70 H, Estimated Creat Clear 32, Estimated GFR 29 L, Est GFR ( Amer) 36 L, Glucose 151 H, Calcium 7.7 L, Total Bilirubin 0.3, AST 19, ALT 13, Alkaline Phosphatase 69, Total Protein 5.4 L, Albumin 2.7 L, Globulin 2.7, Albumin/Globulin Ratio 1.0 L Orders (Tests/Meds): ED MEDICATIONS Generic Name Dose Route Start Last Admin Trade Name Freq PRN Reason Stop Dose Admin Oxycodone/Acetaminophen 1 each 08/26/23 23:15 08/26/23 23:20 Oxycodone 5mg W/Apap 325mg Tablet PO 08/26/23 23:16 1 each ONCE ONE Administration Discontinued Medications Generic Name Dose Route Start Last Admin Trade Name Manuel PRN Reason Stop Dose Admin Dexamethasone Sodium Phosphate 10 mg 08/26/23 21:54 08/26/23 22:06 Dexamethasone 4mg/Ml 1ml Vial IV 08/26/23 21:55 10 mg ONCE ONE Administration Sodium Chloride 1,000 mls @ 999 mls/hr 08/26/23 21:38 08/26/23 21:45 Sod Chlor 0.9% 1000ml Bag IV 08/26/23 22:38 999 mls/hr .Q1H1M ONE Administration ORDERS Category Date Time Status CT cervical spine wo con Stat Cat Scan 08/26/23 21:[address] head/brain wo con Stat Cat Scan 08/26/23 21:13 Completed Elbow XR left mininum 3 views [XR elbow LT min 3V] Stat Exams 08/26/23 21:25 Completed CBC w/Auto Diff [Complete Blood Count Auto Diff] Stat Lab 08/26/23 21:20 Completed CMP [Comprehensive Metabolic Panel] Stat Lab 08/26/23 21:20 Completed Medical Decision Narrative: 72-year-old female with history of CAD, COPD, CHF, hypertension, hyperlipidemia presenting with fall. Patient states that just before arrival she was with her daughter. She stood up too fast from the bed, got tunnel vision, felt lightheaded, tried to lower self to the ground, but syncopized. Daughter was there, tried to catch her, but was unable to. Patient woke up to the ambulance crew around her. She was placed in c-collar and brought to the emergency department. On arrival, patient complaining of tingling in her bilateral hands and pain in her left elbow as well as skin tear on the back of her right hand. Denies weakness, bowel or bladder dysfunction, difficulty breathing, or any other concerns. Patient states that she has been ambulatory since this time. History was obtained via conversation with patient. On arrival, patient hemodynamically stable, alert, oriented x4, appropriate, GCS 15, moving all extremities spontaneously, pupils equal and reactive to light. Full physical exam performed and significant for atraumatic head. C-spine and cervical collar for the time being. Neurovascular exam intact other than symmetric bilateral sensory deficit from elbows distally bilateral upper extremities. Patient does have tenderness about left elbow and skin tear on the dorsal aspect of her right wrist. Differential includes intracranial bleed, unstable cervical spine injury, neuropraxia, central cord syndrome, fracture, sprain, strain, among others. Patient was given fluid bolus for symptomatic management and correction of underlying abnormalities. Workup independently interpreted and significant for no intracranial hemorrhage, no obvious cervical spine injury. Workup with anemia 8.9, platelets within normal limits and white blood cells within normal limits. Mild ADELINE with creatinine 1.7. See radiology read for full review of final results. On reevaluation, patient resting comfortably in bed, c-collar was changed out and more comfortable 1. Because patient having persistent neurosymptoms, [facility] neurosurgery was contacted. Prior to formal consultation and disposition, care handed off to oncoming physician. I assumed care of patient pending discussion with Neurosurgery at and possible transfer--I did speak with Dr. Rea with Neurosurgery at who does recommend ED to ED transfer for further Neurosurgical evaluation and likely MRI. Patient transferred to . Critical Care <Vinny Aragon MD - Last Filed: 08/26/23 23:05> Critical Care Time Critical Care Time: No
[2023-08-26 22:00] VITALS: BP 106/44; PULSE 65; O2SAT 97
[2023-08-26] MEDS: DEXAMETHASONE 4MG/ML 1ML VIAL 10 MG IV (22:06)
--- NOTE | 2023-08-26 22:26 | PC.NURSE ---
house notified of admit. dx: central cord syndrome. vss. spoke with rajinder [place]
[2023-08-26 22:30] VITALS: BP 123/50; PULSE 61; O2SAT 96
--- NOTE | 2023-08-26 22:34 | PC.NURSE ---
contacted [facility] at hospitalist request. awaiting call back at this time from [facility] neurosurgery
[2023-08-26 23:02] VITALS: BP 138/56; PULSE 62; RESP 18; O2SAT 99
[2023-08-26] MEDS: OXYCODONE 5MG W/APAP 325MG TABLET 1 EACH PO (23:20)
[2023-08-26 23:30] VITALS: BP 143/59; PULSE 63; RESP 20; O2SAT 97
[2023-08-27] VITALS: BP 150/63; PULSE 73; RESP 19; O2SAT 95
--- NOTE | 2023-08-27 00:04 | PC.NURSE ---
contacted [facility] in reference to the patient, they stated that they received the images and were awaiting for there neuro surgeon to review the images and return our phone call.
--- NOTE | 2023-08-27 00:08 | PC.NURSE ---
ED doctor on phone with [facility]
--- NOTE | 2023-08-27 00:14 | PC.NURSE ---
EMS notified of transfer
--- NOTE | 2023-08-27 00:16 | PC.NURSE ---
Report called to [facility]in
--- NOTE | 2023-08-27 00:17 | HMH.EDGENADL ---
Discharge Plan Disposition Patient Disposition: Xfer Short-Term Hosp Condition: Fair Prescriptions Prescriptions: No Action albuterol sulfate [Ventolin HFA] 90 mcg/actuation HFA aerosol inhaler 1 inh INHALATION QID PRN (Reason: shortness of breath or wheezing) 90 Days Qty: 8.5 3RF albuterol sulfate 1.25 mg/3 mL solution for nebulization 1.25 mg INHALATION Q6H PRN (Reason: shortness of breath or wheezing) Qty: 270 3RF aspirin 81 mg tablet,delayed release (DR/EC) 81 mg PO DAILY Qty: 90 3RF escitalopram oxalate 20 mg tablet 20 mg PO DAILY Qty: 90 2RF xgbdkqvflbt-yzzplbhjj-arcanomb 100-62.5-25 mcg blister with device 1 ea INHALATION DAILY 90 Days Qty: 60 3RF rosuvastatin 20 mg tablet 20 mg PO HS Qty: 90 3RF trazodone 50 mg tablet 50 mg PO HS Qty: 90 3RF lisinopril-hydrochlorothiazide 10-12.5 mg tablet 1 tab PO BID Qty: 180 3RF azithromycin 250 mg tablet See Rx Instructions .ROUTE .COMPLEX Qty: 6 0RF Rx Instructions: For 250 mg dose pack: take 500 mg today (day 1), then 250 mg for 4 days (days 2-5) benzonatate 100 mg capsule 100 mg PO TID PRN (Reason: cough) 5 Days Qty: 20 0RF prednisone 50 mg tablet 50 mg PO DAILY 5 Days Qty: 5 0RF Rx Instructions: Please begin 1 day after ED visit albuterol sulfate 90 mcg/actuation HFA aerosol inhaler 4 inh inhalation Q4H PRN (Reason: shortness of breath or wheezing) Qty: 8.5 0RF Rx Instructions: 4 puffs every 4 hours for 48 hours then as needed for shortness of breath or wheezing following amoxicillin-pot clavulanate 875-125 mg tablet 1 tab PO BID 10 Days Qty: 20 0RF Referrals Follow up/Referrals: Laila Zarco PA [Primary Care Provider] - See instructions Clinical Impressions Clinical Impression: Neurapraxia Fall Qualifiers: Encounter type: initial encounter Qualified Code(s): W19.XXXA - Unspecified fall, initial encounter Central cord syndrome Qualifiers: Encounter type: initial encounter Qualified Code(s): S14.129A - Central cord syndrome at unspecified level of cervical spinal cord, initial encounter Stand Alone Forms Stand Alone Forms: Transfer Record - ED Discharge ED Provider: Miya Vazquez Adult HPI General Chief complaint: Fall Stated complaint: fall Time Seen by Provider: 08/26/23 21:15 Mode of Arrival: EMS Source of Information: Patient Limitations: No Limitations Description of Symptoms (Recalled from ER Triage Doc. by RN): Patient stood up, got dizzy and fell down. Unknown LOC, right arm skin tears, left elbow pain and both hands tingling. Related Data Previous Rx's Medication Instructions Recorded lisinopril 10 1 tab PO BID #180 tabs 12/25/22 mg-hydrochlorothiazide 12.5 mg tablet albuterol sulfate 1.25 mg/3 mL 1.25 mg (3 mL) inhalation Q6H PRN 01/08/23 solution for nebulization shortness of breath or wheezing #270 mL albuterol sulfate 90 mcg/actuation 1 inh inhalation QID PRN shortness 01/08/23 aerosol inhaler (Ventolin HFA) of breath or wheezing 90 days #8.5 grams aspirin 81 mg tablet,delayed 81 mg PO DAILY HEART HEALTH #90 01/08/23 release tabs escitalopram oxalate 20 mg tablet 20 mg PO DAILY Depression #90 tabs 01/08/23 fluticasone fur. 100 mcg-umeclid 1 ea inhalation DAILY COPD 90 days 01/08/23 62.5 mcg-vilant 25 mcg #60 ea inhalat.powder rosuvastatin 20 mg tablet 20 mg PO HS High cholesterol #90 01/08/23 tabs trazodone 50 mg tablet 50 mg PO HS SLEEP #90 tabs 01/08/23 albuterol sulfate 90 mcg/actuation 4 inh inhalation Q4H PRN shortness 02/19/23 aerosol inhaler of breath or wheezing #8.5 grams amoxicillin 875 mg-potassium 1 tab PO BID 10 days #20 tabs 02/19/23 clavulanate 125 mg tablet azithromycin 250 mg tablet See Rx Instructions PO .COMPLEX #6 02/19/23 tabs benzonatate 100 mg capsule 100 mg PO TID PRN cough 5 days #20 02/19/23 caps prednisone 50 mg tablet 50 mg PO DAILY 5 days #5 tabs 02/19/23 Allergies Allergy/AdvReac Type Severity Reaction Status Date / Time fenofibrate [FENOFIBRATE] Allergy Unknown S-ANAPHYLAX Verified 01/08/23 15:25 IS oxaprozin [OXAPROZIN] Allergy Unknown S-ANAPHYLAX Verified 01/08/23 15:25 IS PFSH PFS Disclaimer: The information contained in this section may have been updated after the patient was seen, as this information can be updated by other users. Medical History Cervical spondylolysis Colon cancer Degenerative disc disease, cervical Degenerative disc disease, lumbar Dyspnea Lumbar canal stenosis Lung cancer Social History (Reviewed 01/08/23 @ 15: by MIKAELA Haley) Smoking Status: Never smoker second hand exposure: No alcohol intake: current substance use type: denies use current occupational status: disabled Travel in the last 8 weeks: None household members: none housing: house current occupational exposures/hazards: No caffeine: Yes ROS Obtained: Yes All systems reviewed & no additional complaints except as documented Physical Exam General General appearance: alert and in no apparent distress Respiratory Respiratory exam: Present normal lung sounds bilaterally Cardiovascular Cardiovascular exam: Present regular rate and normal rhythm Neurological Exam Neurological exam: Present alert and oriented X3 Medical Decision Making Luan Inquiry Pt receiving controlled substance: No Vital Signs: 08/26/23 21:07 08/26/23 21:33 08/26/23 22:00 Temperature 98.4 F Temperature Source Oral Pulse Rate 67 65 Pulse Rate [Radial] 96 H Respiratory Rate 20 Blood Pressure 101/45 L 106/44 L Blood Pressure [Right Arm] 120/49 L Blood Pressure Mean 68 Blood Pressure Mean [Right Arm] 72 Blood Pressure Source [Right Arm] Automatic Cuff Blood Pressure Position [Right Arm] Sitting 02 Sat by Pulse Oximetry 96 96 97 Oxygen Delivery Method Room Air Room Air 08/26/23 22:30 08/26/23 23:02 08/26/23 23:30 Temperature Temperature Source Pulse Rate 61 62 63 Pulse Rate [Radial] Respiratory Rate 18 20 Blood Pressure 123/50 L 138/56 L 143/59 H Blood Pressure [Right Arm] Blood Pressure Mean 77 77 Blood Pressure Mean [Right Arm] Blood Pressure Source [Right Arm] Blood Pressure Position [Right Arm] 02 Sat by Pulse Oximetry 96 99 97 Oxygen Delivery Method Room Air 01/16/24 00:00 Temperature Temperature Source Pulse Rate 73 Pulse Rate [Radial] Respiratory Rate 19 Blood Pressure 150/63 H Blood Pressure [Right Arm] Blood Pressure Mean 72 Blood Pressure Mean [Right Arm] Blood Pressure Source [Right Arm] Blood Pressure Position [Right Arm] 02 Sat by Pulse Oximetry 95 Oxygen Delivery Method Lab Data Lab Results 08/26/23 21:20: WBC 7.7, RBC 3.39 L, Hgb 8.9 L, Hct 27.8 L, MCV 82.0, MCH 26.4 L, MCHC 32.2, RDW 18.1 H, Plt Count 294, MPV 9.8, Neut % (Auto) 57.2, Lymph % (Auto) 28.5, [place] % (Auto) 9.4 H, Eos % (Auto) 4.4, Baso % (Auto) 0.5, Neut # (Auto) 4.4, Lymph # (Auto) 2.2, [place] # (Auto) 0.7, Eos # (Auto) 0.3, Baso # (Auto) 0.0, Sodium 135 L, Potassium 3.8, Chloride 104, Carbon Dioxide 25, Anion Gap 9.8, BUN 39 H, Creatinine 1.70 H, Estimated Creat Clear 32, Estimated GFR 29 L, Est GFR ( Amer) 36 L, Glucose 151 H, Calcium 7.7 L, Total Bilirubin 0.3, AST 19, ALT 13, Alkaline Phosphatase 69, Total Protein 5.4 L, Albumin 2.7 L, Globulin 2.7, Albumin/Globulin Ratio 1.0 L 08/26/23 21:20 08/26/23 21:20 Orders (Tests/Meds): ED MEDICATIONS Discontinued Medications Generic Name Dose Route Start Last Admin Trade Name Freq PRN Reason Stop Dose Admin Dexamethasone Sodium Phosphate 10 mg 08/26/23 21:54 08/26/23 22:06 Dexamethasone 4mg/Ml 1ml Vial IV 08/26/23 21:55 10 mg ONCE ONE Administration Fentanyl Citrate 25 mcg 08/27/23 00:18 08/27/23 00:36 Fentanyl 100mcg/2ml Vial IV 08/27/23 00:19 25 mcg ONCE ONE Administration Sodium Chloride 1,000 mls @ 999 mls/hr 08/26/23 21:38 08/26/23 21:45 Sod Chlor 0.9% 1000ml Bag IV 08/26/23 22:38 999 mls/hr .Q1H1M ONE Administration Oxycodone/Acetaminophen 1 each 08/26/23 23:15 08/26/23 23:20 Oxycodone 5mg W/Apap 325mg Tablet PO 08/26/23 23:16 1 each ONCE ONE Administration ORDERS Category Date Time Status CT cervical spine wo con Stat Cat Scan 08/26/23 21:[address] head/brain wo con Stat Cat Scan 08/26/23 21:13 Completed Elbow XR left mininum 3 views [XR elbow LT min 3V] Stat Exams 08/26/23 21:25 Completed CBC w/Auto Diff [Complete Blood Count Auto Diff] Stat Lab 08/26/23 21:20 Completed CMP [Comprehensive Metabolic Panel] Stat Lab 08/26/23 21:20 Completed Critical Care Critical Care Time Critical Care Time: No
--- NOTE | 2023-08-27 00:20 | PC.NURSE ---
discussed transport with [email or web address] with lolita vaughn,[facility]. Requiring medicare pre-authorization citing email sent on 08/13/23 per gricelda avery/director of EMS.
--- NOTE | 2023-08-27 00:25 | PC.NURSE ---
patient assisted to bsc, daughter sitting next to patient as she wishes to sit on side of the bed
[2023-08-27] MEDS: FENTANYL 100MCG/2ML VIAL 25 MCG IV (00:36)
[2023-08-27 00:44] VITALS: BP 150/63; PULSE 82; RESP 20; TEMP 36.9; O2SAT 96
== END 2023-08-27 00:46 | disposition short-term general hospital (02) ==
LOC: ER 22:23 → 2ND 23:05 → ER 08-27 00:21
PROVIDERS: Emergency Medicine; Emergency Provider Emergency Medicine; PCP Physician Assistant
DX: S14.129A Central cord syndrome at unspecified level of cervical spinal cord, initial encounter (principal); R42 Dizziness and giddiness; I11.0 Hypertensive heart disease with heart failure; I50.9 Heart failure, unspecified; I25.10 Atherosclerotic heart disease of native coronary artery without angina pectoris; J44.9 Chronic obstructive pulmonary disease, unspecified; E78.5 Hyperlipidemia, unspecified; W18.30XA Fall on same level, unspecified, initial encounter
CPT/HCPCS: 70450; 72125; 73080; 80053; 85025; 96361; 96374; 99285

== ENCOUNTER 2024-06-13 11:45 | Emergency (ER) | payer MEDICARE, OTHER, SELFPAY ==
[2024-06-13] VITALS (7 sets, daily range): BP systolic 134–170; BP diastolic 64–82; PULSE 79–99; RESP 18–22; TEMP 36.7; O2SAT 96–98; BMI 27.1
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
--- NOTE | 2024-06-13 12:04 | PC.NURSE ---
DR FOWLER AT BEDSIDE
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
--- NOTE | 2024-06-13 12:12 | CT_ITS ---
PROCEDURE INFORMATION: Exam: CTA Chest With Contrast Exam date and time: 06/13/2024 1:39 PM Age: 73 years old Clinical indication: Injury or trauma; Additional info: Trauma, critical injury suspected TECHNIQUE: Imaging protocol: Computed tomographic angiography of the chest with contrast. Exam focused on the arteries. 3D rendering (Not supervised by radiologist): MIP and/or 3D reconstructed images were created by the technologist. Radiation optimization: All CT scans at this facility use at least one of these dose optimization techniques: automated exposure control; mA and/or kV adjustment per patient size (includes targeted exams where dose is matched to clinical indication); or iterative reconstruction. Contrast material: ISOVUE 370; Contrast volume: 80 ml; Contrast route: INTRAVENOUS (IV); COMPARISON: CT ANGIO CHEST PE PROTOCOL 08/26/2021 7:25 PM FINDINGS: Tubes, catheters and devices: There is a right tunneled catheter with its tip in the cavoatrial junction. Pulmonary arteries: The main pulmonary trunk is prominent, which can be seen in the context of pulmonary hypertension. No pulmonary embolus. Aorta: Unremarkable. No aortic aneurysm. No aortic dissection. Trachea: Main airways are patent. Lungs: No pulmonary contusion or laceration. There is redemonstration of pleural-based left apical pulmonary opacity. Pleural spaces: No pneumothorax. No pleural effusion. Heart: The left atrial appendage is normal. Cardiomegaly attributable to multi cardiac chamber enlargement. Coronary arteries: There is moderate atherosclerotic calcification of the coronary arteries. Lymph nodes: Unremarkable. No enlarged lymph nodes. Intraperitoneal space: For findings in the abdomen and pelvis, please refer to the separately dictated abdomen and pelvis CT report under a separate accession number. Bones/joints: Left lower lobe pleural-based 8 mm nodule bone is re-identified, now with internal calcification. Calcification can be attributed to either posttreatment changes versus developing granuloma. Soft tissues: Unremarkable. IMPRESSION: 1. No pulmonary contusion or laceration. 2. Left lower lobe pleural-based 8 mm nodule bone is re-identified, now with internal calcification. Calcification can be attributed to either posttreatment changes versus developing granuloma. No substantial change in left apical pleural-based pulmonary opacity. 3. No acute osseous abnormality.
--- NOTE | 2024-06-13 12:12 | CT_ITS ---
PROCEDURE INFORMATION: Exam: CT Cervical Spine Without Contrast Exam date and time: 06/13/2024 1:29 PM Age: 73 years old Clinical indication: Injury or trauma; Additional info: Trauma, critical injury suspected TECHNIQUE: Imaging protocol: Computed tomography of the cervical spine without contrast. Radiation optimization: All CT scans at this facility use at least one of these dose optimization techniques: automated exposure control; mA and/or kV adjustment per patient size (includes targeted exams where dose is matched to clinical indication); or iterative reconstruction. COMPARISON: CT CERVICAL SPINE WO CON 08/26/2023 9:25 PM FINDINGS: Tubes, catheters and devices: There is a right internal jugular vein central venous catheter. The distal tip is not included on this study. Bones: There is normal anatomic alignment of the cervical spine. No evidence of a cervical compression fracture deformity. There are multilevel chronic degenerative changes throughout the lower cervical spine, most severe at C5-C6. Lungs: Chronic appearing left apical pulmonary scar. Soft tissues: Unremarkable. IMPRESSION: Stable multilevel chronic degenerative changes of the cervical spine without fracture.
--- NOTE | 2024-06-13 12:12 | CT_ITS ---
PROCEDURE INFORMATION: Exam: CTA Neck With Contrast Exam date and time: 06/13/2024 1:36 PM Age: 73 years old Clinical indication: Injury or trauma; Additional info: Trauma, critical injury suspected TECHNIQUE: Imaging protocol: Computed tomographic angiography of the neck with contrast. Exam focused on the cervical segments of the vasculature. 3D rendering (Not supervised by radiologist): MIP and/or 3D reconstructed images were created by the technologist. Radiation optimization: All CT scans at this facility use at least one of these dose optimization techniques: automated exposure control; mA and/or kV adjustment per patient size (includes targeted exams where dose is matched to clinical indication); or iterative reconstruction. Contrast material: ISOVUE 370; Contrast volume: 80 ml; Contrast route: INTRAVENOUS (IV); COMPARISON: CT CERVICAL SPINE WO CON 06/13/2024 1:29 PM FINDINGS: Right common carotid artery: No stenosis. No dissection or occlusion. Right internal carotid artery: No stenosis of the extracranial segment. No dissection or occlusion. Right external carotid artery: No occlusion or stenosis of the origin. Left common carotid artery: No stenosis. No dissection or occlusion. Left internal carotid artery: No stenosis of the extracranial segment. No dissection or occlusion. Left external carotid artery: No occlusion or stenosis of the origin. Right vertebral artery: No stenosis. No dissection or occlusion. Normal variant dominance of the right vertebral artery. 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 The proximal left vertebral artery is unremarkable. Soft tissues: Stable appearing chronic consolidation at the left lung apex. Bones/joints: No acute fracture. IMPRESSION: 1. No CT evidence of an acute arterial abnormality in the neck. 2. 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 REFERENCES: NASCET CRITERIA. The degree of stenosis in the cervical segment of the internal carotid artery is based on NASCET criteria. Normal is no stenosis. Mild is less than 50% stenosis. Moderate is 50-69% stenosis. Severe is 70% to 99% stenosis. Total occlusion is no detectable patent lumen.
--- NOTE | 2024-06-13 12:12 | CT_ITS ---
PROCEDURE INFORMATION: Exam: CTA Head With Contrast, Arteriography Exam date and time: 06/13/2024 1:36 PM Age: 73 years old Clinical indication: Injury or trauma; Additional info: Trauma, critical injury suspected TECHNIQUE: Imaging protocol: Computed tomographic angiography of the head with contrast. Exam focused on the arteries. 3D rendering (Not supervised by radiologist): MIP and/or 3D reconstructed images were created by the technologist. Radiation optimization: All CT scans at this facility use at least one of these dose optimization techniques: automated exposure control; mA and/or kV adjustment per patient size (includes targeted exams where dose is matched to clinical indication); or iterative reconstruction. Contrast material: ISOVUE 370; Contrast volume: 80 ml; Contrast route: INTRAVENOUS (IV); COMPARISON: CT HEAD/BRAIN WO CON 06/13/2024 1:28 PM FINDINGS: ANTERIOR CIRCULATION: Right internal carotid artery: Intracranial segment is patent with no significant stenosis. No aneurysm. Right middle cerebral artery: No occlusion or significant stenosis. No aneurysm. Right anterior cerebral artery: No occlusion or significant stenosis. No aneurysm. Left internal carotid artery: Intracranial segment is patent with no significant stenosis. No aneurysm. Left middle cerebral artery: No occlusion or significant stenosis. No aneurysm. Left anterior cerebral artery: No occlusion or significant stenosis. No aneurysm. POSTERIOR CIRCULATION: Right vertebral artery: No occlusion or significant stenosis. No aneurysm. 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 No aneurysm. Basilar artery: No occlusion or significant stenosis. No aneurysm. Right posterior cerebral artery: No occlusion or significant stenosis. No aneurysm. Left posterior cerebral artery: No occlusion or significant stenosis. No aneurysm. Brain: No definite mass, mass effect, or midline shift. Cerebral ventricles: No ventriculomegaly. Bones/joints: Unremarkable. No acute fracture. Soft tissues: Unremarkable. IMPRESSION: 1. No large vessel stenosis or occlusion. 2. 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
--- NOTE | 2024-06-13 12:12 | CT_ITS ---
PROCEDURE INFORMATION: Exam: CT Head Without Contrast Exam date and time: 06/13/2024 1:28 PM Age: 73 years old Clinical indication: Injury or trauma; Additional info: Trauma, critical injury suspected TECHNIQUE: Imaging protocol: Computed tomography of the head without contrast. Radiation optimization: All CT scans at this facility use at least one of these dose optimization techniques: automated exposure control; mA and/or kV adjustment per patient size (includes targeted exams where dose is matched to clinical indication); or iterative reconstruction. COMPARISON: CT HEAD/BRAIN WO CON 06/13/2024 1:28 PM FINDINGS: Brain: Diffuse cerebral atrophy and white matter microangiopathic chronic ischemia in both hemispheres. No CT evidence of acute infarct, hemorrhage, mass or mass effect. Cerebral ventricles: No ventriculomegaly. Paranasal sinuses: Visualized sinuses are unremarkable. No fluid levels. Mastoid air cells: Visualized mastoid air cells are well aerated. Bones: Unremarkable. No acute fracture. Soft tissues: Unremarkable. IMPRESSION: Senescent brain changes but no CT evidence of acute brain injury.
--- NOTE | 2024-06-13 12:12 | CT_ITS ---
PROCEDURE INFORMATION: Exam: CTA Abdomen and Pelvis With Contrast Exam date and time: 06/13/2024 1:39 PM Age: 73 years old Clinical indication: Injury or trauma; Additional info: Trauma, critical injury suspected TECHNIQUE: Imaging protocol: Computed tomographic angiography of the abdomen and pelvis with contrast. Exam focused on the arteries. 3D rendering (Not supervised by radiologist): MIP and/or 3D reconstructed images were created by the technologist. Radiation optimization: All CT scans at this facility use at least one of these dose optimization techniques: automated exposure control; mA and/or kV adjustment per patient size (includes targeted exams where dose is matched to clinical indication); or iterative reconstruction. Contrast material: ISOVUE 370; Contrast volume: 80 ml; Contrast route: INTRAVENOUS (IV); COMPARISON: CT ABDOMEN PELVIS W CON 01/31/2022 8:35 AM FINDINGS: Aorta: No aortic aneurysm. No aortic dissection. Celiac trunk and mesenteric arteries: Moderate narrowing of the celiac axis and superior mesenteric artery origins Renal arteries: No occlusion or significant stenosis. Right iliac arteries: No occlusion or significant stenosis. Left iliac arteries: No occlusion or significant stenosis. Liver: Known hepatic metastases are re-identified. The largest in size is in the caudate lobe measuring 1.8 cm. No parenchymal laceration or subcapsular hematoma. Gallbladder and biliary ducts: Gallbladder is distended. Cholelithiasis noted. Fundal adenomyomatosis noted. No biliary ductal dilation. Pancreas: No peripancreatic fluid stranding. No main pancreatic ductal dilation. Spleen: No splenomegaly. Adrenal glands: The adrenal glands are normal. Kidneys and ureters: Nephrograms are symmetric. No nephrolithiasis or hydroureteronephrosis on either side. No solid lesions Stomach and bowel: Status post right hemicolectomy.No bowel wall thickening or distention. Appendix: There has been an appendectomy. Intraperitoneal space: There is no evidence of free intraperitoneal or pelvic fluid. Lymph nodes: No evidence of retroperitoneal or mesenteric lymphadenopathy. Urinary bladder: Urinary bladder is unremarkable. Reproductive: Unremarkable as visualized. Bones/joints: There is preservation of vertebral alignment and vertebral body heights. Facet joints are aligned. No acute fracture. No significant central spinal canal stenosis or neural foraminal narrowing at any level. Sacroiliac joints are intact. No acute osseous abnormality. 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 Soft tissues: Unremarkable. Other findings: For findings in the chest, please refer to the separately dictated chest CT report under a separate accession number. IMPRESSION: 1. No acute traumatic injury in the abdomen or pelvis. No acute osseous abnormality 2. There is redemonstration of hepatic metastases. 3. 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
--- NOTE | 2024-06-13 12:12 | CT_ITS ---
PROCEDURE INFORMATION: Exam: CT Thoracic Spine Without Contrast Exam date and time: 06/13/2024 1:31 PM Age: 73 years old Clinical indication: Injury or trauma; Additional info: Trauma, critical injury suspected TECHNIQUE: Imaging protocol: Computed tomography of the thoracic spine without contrast. Radiation optimization: All CT scans at this facility use at least one of these dose optimization techniques: automated exposure control; mA and/or kV adjustment per patient size (includes targeted exams where dose is matched to clinical indication); or iterative reconstruction. COMPARISON: CT THORACIC SPINE WO CON 06/13/2024 1:31 PM FINDINGS: Bones/joints: No acute fracture. Normal alignment. No significant disc bulge or herniation. No severe spinal canal stenosis. No significant neural foraminal narrowing. There are mild multilevel chronic degenerative changes throughout the thoracic spine. Soft tissues: Unremarkable. IMPRESSION: Mild multilevel chronic degenerative changes throughout the thoracic spine. No acute thoracic spine abnormality appreciated.
--- NOTE | 2024-06-13 12:12 | CT_ITS ---
PROCEDURE INFORMATION: Exam: CT Lumbar Spine Without Contrast Exam date and time: 06/13/2024 1:33 PM Age: 73 years old Clinical indication: Injury or trauma; Additional info: Trauma, critical injury suspected TECHNIQUE: Imaging protocol: Computed tomography of the lumbar spine without contrast. Radiation optimization: All CT scans at this facility use at least one of these dose optimization techniques: automated exposure control; mA and/or kV adjustment per patient size (includes targeted exams where dose is matched to clinical indication); or iterative reconstruction. COMPARISON: FINDINGS: Bones/joints: No acute fracture. Normal alignment. No significant disc bulge or herniation. There is mild chronic degenerative facet arthropathy in the lower lumbar spine. No severe spinal canal stenosis. No significant neural foraminal narrowing. Soft tissues: Unremarkable. IMPRESSION: Minor chronic degenerative changes in the lower lumbar spine, otherwise normal study.
--- NOTE | 2024-06-13 12:18 | PC.NURSE ---
XR AT BEDSIDE
--- NOTE | 2024-06-13 12:24 | PC.NURSE ---
STAGE DIRECTOR DEPT AT BEDSIDE
[2024-06-13 13:00] LABS: Basophils % 0.5 % (0.1-2.0); Eosinophils # 0.1 K/mm3 (0.0-0.4); Eosinophils % 0.8 % (0.1-12.0); Hematocrit 27.9 % (37.0-47.0); Hemoglobin 9.6 g/dL (12.2-16.2); Lymphocytes # 1.4 K/mm3 (0.7-4.5); Lymphocytes % 19.9 % (10-50); Mean Corpuscular HGB Conc 34.5 g/dL (31.8-35.4); Mean Corpuscular Hemoglobin 35.6 pg (27.0-31.2); Mean Corpuscular Volume 103.1 fl (81-99); Mean Platelet Volume 9.1 fl (7.4-10.4); Monocytes # 0.6 K/mm3 (0.1-1.0); Monocytes % 8.2 % (1.7-9.3); Neutrophils # 4.9 K/mm3 (1.8-7.8); Neutrophils % 70.7 % (37.0-80.0); Platelet Count 124 K/mm3 (142-424); Red Blood Count 2.71 M/mm3 (4.20-5.40); Red Cell Distribution Width 20.2 % (11.5-17.5)
[2024-06-13 13:09] LABS: Alanine Aminotransferase 14 U/L (12-78); Albumin Level 3.7 g/dl (3.5-5.0); Albumin/Globulin Ratio 1.4 (1.1-1.8); Alkaline Phosphatase 70 U/L (38-126); Anion Gap 11.4 mEq/L (5-15); Aspartate Amino Transferase 25 U/L (14-36); Bilirubin,Total 0.8 mg/dl (0.2-1.3); Blood Urea Nitrogen 21 mg/dl (7-17); Calcium 8.5 mg/dl (8.4-10.2); Carbon Dioxide 23 mmol/L (22.0-30.0); Chloride 112 mmol/L (98-107); Creatinine Clearance Estimated 53 mL/min (50-200); Estimated Glomerular Filt Rate 54 ml/min (>60); GFR (African American) 65 ML/MIN (>60); Globulin 2.7 g/dL (1.3-3.2); Glucose 113 mg/dl (74-100); Lipase 89 U/L (23-300); Potassium 3.4 mmoL/L (3.5-5.1); Sodium 143 mmol/L (136-145); Total Protein,Serum 6.4 g/dl (6.3-8.2)
[2024-06-13 13:10] LABS: Lactic Acid 0.8 mmol/L (0.7-2.1)
[2024-06-13 13:11] LABS: Activated Partial Thrombo Time 33.1 seconds (22.8-30.6); INR 0.97 (0.9-1.1); Prothrombin Time 10.9 seconds (10.1-12.5)
[2024-06-13] MEDS: SODIUM CHLORIDE 0.9% 10ML SYR (RAD ONLY) 10 ML IV (13:27)
[2024-06-13] MEDS: 0.9 % SODIUM CHLORIDE 50 ML VIAL IV ×2 (13:27→13:30)
[2024-06-13] MEDS: IOPAMIDOL-370 (76%);100ML BOTTLE 80 ML IV ×2 (13:28→13:30)
[2024-06-13] MEDS: TET/DIPHTH/PERT-ADULT 0.5ML SYRINGE 0.5 ML IM (14:48)
[2024-06-13 15:52] LABS: HIV (1&2) Antibody Rapid NONREACTIVE (NONREACTIVE)
[2024-06-14 10:10] LABS: HCV Ab Non Reactive (Non Reactive)
== END 2024-06-13 14:45 | disposition home or self-care (01) ==
PROVIDERS: Emergency Provider Student in an Organized Health Care Education/Training Program; PCP Physician Assistant
DX: M25.551 Pain in right hip (principal); R07.82 Intercostal pain; Z23 Encounter for immunization; Y08.89XA Assault by other specified means, initial encounter; Y93.89 Activity, other specified; Y92.008 Other place in unspecified non-institutional (private) residence as the place of occurrence of the external cause
CPT/HCPCS: 70450; 70496; 70498; 71045; 71275; 72125; 72128; 72131; 72170; 74174; 80053; 83605; 83690; 85025; 85610; 85730; 86803; 87389; 90471; 90715; 99285; Q9967

== ENCOUNTER 2024-07-19 16:32 | Outpatient (CLI) | payer MEDICARE, OTHER, SELFPAY ==
[2024-07-19 17:00] LABS: Basophils % 0.5 % (0.1-2.0); Eosinophils # 0.1 K/mm3 (0.0-0.4); Eosinophils % 1.2 % (0.1-12.0); Hematocrit 31.8 % (37.0-47.0); Hemoglobin 11.2 g/dL (12.2-16.2); Lymphocytes # 2.1 K/mm3 (0.7-4.5); Lymphocytes % 43.8 % (10-50); Mean Corpuscular HGB Conc 35.4 g/dL (31.8-35.4); Mean Corpuscular Hemoglobin 36.9 pg (27.0-31.2); Mean Corpuscular Volume 104.2 fl (81-99); Mean Platelet Volume 9.1 fl (7.4-10.4); Monocytes # 0.3 K/mm3 (0.1-1.0); Monocytes % 7.2 % (1.7-9.3); Neutrophils # 2.2 K/mm3 (1.8-7.8); Neutrophils % 47.3 % (37.0-80.0); Platelet Count 71 K/mm3 (142-424); Red Blood Count 3.05 M/mm3 (4.20-5.40); Red Cell Distribution Width 18.8 % (11.5-17.5); White Blood Count 4.7 K/mm3 (4.8-10.8)
[2024-07-19 17:51] LABS: Chloride 109 mmol/L (98-107)
[2024-07-19 17:52] LABS: Potassium 4.3 mmoL/L (3.5-5.1); Sodium 138 mmol/L (136-145)
[2024-07-19 17:54] LABS: Alanine Aminotransferase 15 U/L (12-78); Albumin/Globulin Ratio 1.7 (1.1-1.8); Alkaline Phosphatase 103 U/L (38-126); Anion Gap 11.3 mEq/L (5-15); Aspartate Amino Transferase 30 U/L (14-36); Blood Urea Nitrogen 23 mg/dl (7-17); Carbon Dioxide 22 mmol/L (22.0-30.0); Estimated Glomerular Filt Rate 48 ml/min (>60); GFR (African American) 59 ML/MIN (>60); Globulin 2.3 g/dL (1.3-3.2); Total Protein,Serum 6.3 g/dl (6.3-8.2)
[2024-07-19 17:55] LABS: Glucose 103 mg/dl (74-100)
== END 2024-07-19 23:59 | disposition home or self-care (01) ==
LOC: LAB 16:34
PROVIDERS: PCP Physician Assistant; Visit Provider Internal Medicine
DX: C18.9 Malignant neoplasm of colon, unspecified (principal); C78.7 Secondary malignant neoplasm of liver and intrahepatic bile duct
CPT/HCPCS: 36415; 80053; 85025

== ENCOUNTER 2024-07-29 11:31 | Outpatient (CLI) | payer MEDICARE, OTHER, SELFPAY ==
[2024-07-29 12:08] LABS: White Blood Count 4.4 K/mm3 (4.8-10.8)
[2024-07-29 12:09] LABS: Basophils % 0.2 % (0.1-2.0); Eosinophils % 0.5 % (0.1-12.0); Hematocrit 34.7 % (37.0-47.0); Hemoglobin 11.5 g/dL (12.2-16.2); Lymphocytes # 1.3 K/mm3 (0.7-4.5); Lymphocytes % 30.6 % (10-50); Mean Corpuscular HGB Conc 33.1 g/dL (31.8-35.4); Mean Corpuscular Volume 105.5 fl (81-99); Mean Platelet Volume 10.4 fl (7.4-10.4); Monocytes # 0.4 K/mm3 (0.1-1.0); Monocytes % 8.4 % (1.7-9.3); Neutrophils # 2.6 K/mm3 (1.8-7.8); Neutrophils % 60.1 % (37.0-80.0); Platelet Count 77 K/mm3 (142-424); Red Blood Count 3.29 M/mm3 (4.20-5.40); Red Cell Distribution Width 14.9 % (11.5-17.5)
[2024-07-29 12:45] LABS: Chloride 110 mmol/L (98-107); Potassium 4.4 mmoL/L (3.5-5.1); Sodium 137 mmol/L (136-145)
[2024-07-29 12:47] LABS: Blood Urea Nitrogen 22 mg/dl (7-17); Estimated Glomerular Filt Rate 44 ml/min (>60); GFR (African American) 53 ML/MIN (>60)
[2024-07-29 12:48] LABS: Alanine Aminotransferase 16 U/L (12-78); Albumin/Globulin Ratio 1.7 (1.1-1.8); Alkaline Phosphatase 87 U/L (38-126); Anion Gap 7.4 mEq/L (5-15); Aspartate Amino Transferase 32 U/L (14-36); Bilirubin,Total 0.8 mg/dl (0.2-1.3); Carbon Dioxide 24 mmol/L (22.0-30.0); Globulin 2.3 g/dL (1.3-3.2); Glucose 95 mg/dl (74-100); Total Protein,Serum 6.3 g/dl (6.3-8.2)
== END 2024-07-29 23:59 | disposition home or self-care (01) ==
LOC: LAB 11:34
PROVIDERS: PCP Physician Assistant; Visit Provider Internal Medicine
DX: C18.9 Malignant neoplasm of colon, unspecified (principal); C78.7 Secondary malignant neoplasm of liver and intrahepatic bile duct
CPT/HCPCS: 36415; 80053; 85025

== ENCOUNTER 2024-08-13 11:08 | Outpatient (CLI) | payer MEDICARE, OTHER, SELFPAY ==
[2024-08-13 11:35] LABS: Basophils % 0.2 % (0.1-2.0); Eosinophils # 0.1 K/mm3 (0.0-0.4); Eosinophils % 1.4 % (0.1-12.0); Hematocrit 35.7 % (37.0-47.0); Hemoglobin 11.9 g/dL (12.2-16.2); Lymphocytes # 1.3 K/mm3 (0.7-4.5); Lymphocytes % 26.1 % (10-50); Mean Corpuscular HGB Conc 33.3 g/dL (31.8-35.4); Mean Corpuscular Hemoglobin 34.4 pg (27.0-31.2); Mean Corpuscular Volume 103.2 fl (81-99); Mean Platelet Volume 9.5 fl (7.4-10.4); Monocytes # 0.4 K/mm3 (0.1-1.0); Monocytes % 7.4 % (1.7-9.3); Neutrophils # 3.3 K/mm3 (1.8-7.8); Neutrophils % 64.3 % (37.0-80.0); Platelet Count 106 K/mm3 (142-424); Red Blood Count 3.46 M/mm3 (4.20-5.40); Red Cell Distribution Width 14.4 % (11.5-17.5); White Blood Count 5.1 K/mm3 (4.8-10.8)
[2024-08-13 12:06] LABS: Alanine Aminotransferase 30 U/L (12-78); Albumin/Globulin Ratio 1.8 (1.1-1.8); Alkaline Phosphatase 112 U/L (38-126); Anion Gap 8.7 mEq/L (5-15); Aspartate Amino Transferase 40 U/L (14-36); Bilirubin,Total 0.7 mg/dl (0.2-1.3); Blood Urea Nitrogen 19 mg/dl (7-17); Calcium 9.4 mg/dl (8.4-10.2); Carbon Dioxide 27 mmol/L (22.0-30.0); Chloride 107 mmol/L (98-107); Estimated Glomerular Filt Rate 54 ml/min (>60); GFR (African American) 65 ML/MIN (>60); Globulin 2.2 g/dL (1.3-3.2); Glucose 89 mg/dl (74-100); Potassium 4.7 mmoL/L (3.5-5.1); Sodium 138 mmol/L (136-145); Total Protein,Serum 6.2 g/dl (6.3-8.2)
== END 2024-08-13 23:59 | disposition home or self-care (01) ==
LOC: LAB 11:09
PROVIDERS: PCP Physician Assistant; Visit Provider Internal Medicine
DX: C18.9 Malignant neoplasm of colon, unspecified (principal); C78.7 Secondary malignant neoplasm of liver and intrahepatic bile duct
CPT/HCPCS: 36415; 80053; 85025